=== PATIENT | female | born 1955 | race American Indian/Alaskan Native ===

== ENCOUNTER 2016-04-27 17:40 | Inpatient (IN) | payer SELFPAY ==
[2016-04-27 18:45] LABS: Mean Corpuscular HGB Conc 29 % (30-34); Red Blood Count 6.47 M/mm3 (3.65-5.03)
[2016-04-27 18:46] LABS: Hemoglobin 10.6 gm/dl (10.1-14.3); White Blood Count 20.6 K/mm3 (4.5-11.0)
[2016-04-27 18:47] LABS: Hematocrit 36.9 % (30.3-42.9); Mean Corpuscular Hemoglobin 16 pg (28-32); Mean Corpuscular Volume 57 fl (79-97); Platelet Count 288 K/mm3 (140-440); Red Cell Distribution Width 24.9 % (13.2-15.2)
[2016-04-27 18:57] LABS: Anion Gap 21 mmol/L; BUN/Creatinine Ratio 11.42; Blood Urea Nitrogen 8 mg/dL (7-17); Calcium 9.3 mg/dL (8.4-10.2); Carbon Dioxide 21 mmol/L (22-30); Chloride 96.9 mmol/L (98-107); Glucose 119 mg/dL (65-100); Potassium 4.3 mmol/L (3.6-5.0); Sodium 135 mmol/L (137-145)
[2016-04-27 19:19] LABS: Basophils % (Manual) 0 % (0.0-1.8); Blastocytes % (Manual) 0 %; Eosinophils % (Manual) 0 % (0.0-4.3)
[2016-04-27 19:22] LABS: Anisocytosis 1+; Elliptocytes Few; Hypochromasia 2+; Large Platelets 1+; Microcytosis 3+; Poikilocytosis 1+
[2016-04-27 19:23] LABS: Diff Status Complete; Platelet Estimate Consistent w Auto
--- NOTE | 2016-04-28 09:53 | XRay Report ---
CHEST 2 VIEWS: INDICATION: Shortness of breath. COMPARISON: None similar at this institution. FINDINGS: Frontal and lateral chest radiographs demonstrate slight exaggerated, though grossly normal cardiomediastinal silhouette, mild aortic knob calcifications, mildly elevated right hemidiaphragm and few horizontal bibasilar densities, possibly atelectasis or scarring. No pleural effusions or CHF. Multilevel thoracic spondylosis. CONCLUSION: Findings, as above. Direct comparison with prior chest imaging would also be helpful, if available. Thank you for the opportunity to participate in this patient's care.
--- NOTE | 2016-04-28 11:06 | Emergency Department Report ---
HPI - General Chief Complaint: Chest Pain Time Seen by Provider: 04/28/16 10:17 - HPI HPI: Chief complaint: Chest pain HPI: Patient is a 60-year-old female who normally gets her care at [facility] who presents today with pleuritic chest pain. Patient states it started around 9:00 Thursday evening and has gradually worsened. Patient states she has it when she coughs and when she takes a deep inspiration and it is sharp in nature. Patient has a cough with white sputum but no shortness of breath. Patient denies fever, nausea, vomiting or diarrhea. Patient has a history of chronic atrial fibrillation and up until January was on Zarrella to. Patient states he took her off Xarelto because of anemia and she was to have a colonoscopy but she never followed up or made an appointment and therefore has been off anticoagulants were several months now. Patient has been taking her digoxin and her diltiazem. Patient is currently pain-free. Patient denies history of fever. Patient denies history of heart attack, congestive heart failure but has had a history of pneumonia. Mode of arrival: private car Source: Patient Began: See above Duration: See above Context: See above Quality: See above Severity: 8 initially current 0 out of 10 Improved with: Nothing Worsened with: See above Associated signs and symptoms: See above ED Past Medical Hx - Past Medical History Hx Hypertension: Yes Additional medical history: ATRIAL FIB. PNEUMONIA - Surgical History Additional Surgical History: TUBAL LIGATION - Social History Smoking Status: Never Smoker Substance Use Type: None ED Review of Systems ROS: Stated complaint: CHEST PAINS/AFIB/HEART PAINS Other details as noted in HPI ROS Constitutional: No fever ENT: No uri symptoms Cardiovascular: chest pain Respiratory: No sob GI: No nausea vomiting or diarrhea : No dysuria frequency or urgency, Skin: No rash Neuro: No focal weakness or numbness Psych: No depression Ric/lymph: No edema Physical Exam - Physical Exam Vital Signs: Vital Signs 04/27/16 04/28/16 04/28/16 18:01 09:54 09:56 Temperature 99.3 F Pulse Rate 67 114 H Respiratory 22 27 H Rate Blood Pressure 135/64 130/75 O2 Sat by Pulse 97 100 100 Oximetry 04/28/16 04/28/16 04/28/16 09:58 10:00 10:02 Temperature Pulse Rate 106 H 103 H 111 H Respiratory 25 H 26 H 26 H Rate Blood Pressure 130/75 125/74 125/74 O2 Sat by Pulse 98 100 98 Oximetry 04/28/16 04/28/16 04/28/16 10:04 10:06 10:08 Temperature Pulse Rate 114 H 107 H 111 H Respiratory 27 H 21 29 H Rate Blood Pressure 125/74 125/74 125/74 O2 Sat by Pulse 99 100 100 Oximetry 04/28/16 04/28/16 04/28/16 10:10 10:12 10:14 Temperature Pulse Rate 108 H 98 H 103 H Respiratory 21 27 H 28 H Rate Blood Pressure 125/74 125/74 125/74 O2 Sat by Pulse 100 93 Oximetry 04/28/16 10:16 Temperature Pulse Rate 122 H Respiratory 30 H Rate Blood Pressure 125/74 O2 Sat by Pulse 100 Oximetry Physical Exam: GENERAL: The patient is well-developed well-nourished . HEENT: Normocephalic. Atraumatic. Extraocular motions are intact. Patient has moist mucous membranes. NECK: Supple. No meningitic signs are noted. There is no adenopathy noted. CHEST/LUNGS: Clear to auscultation. There is no respiratory distress noted. HEART/CARDIOVASCULAR: Irregular. There is intermittent tachycardia. There is no gallop rub or murmur. ABDOMEN: Abdomen is soft, nontender. Patient has normal bowel sounds. There is no abdominal distention. SKIN: There is no rash. There is no edema. There is no diaphoresis. NEURO: The patient is awake, alert, and oriented. The patient is cooperative. The patient has no focal neurologic deficits. The patient has normal speech. MUSCULOSKELETAL: There is no tenderness or deformity. There is no limitation range of motion. There is no evidence of acute injury. ED Course Vital Signs 04/27/16 04/28/16 04/28/16 18:01 09:54 09:56 Temperature 99.3 F Pulse Rate 67 114 H Respiratory 22 27 H Rate Blood Pressure 135/64 130/75 O2 Sat by Pulse 97 100 100 Oximetry 04/28/16 04/28/16 04/28/16 09:58 10:00 10:02 Temperature Pulse Rate 106 H 103 H 111 H Respiratory 25 H 26 H 26 H Rate Blood Pressure 130/75 125/74 125/74 O2 Sat by Pulse 98 100 98 Oximetry 0204/28/16 04/28/16 10:04 10:06 10:08 Temperature Pulse Rate 114 H 107 H 111 H Respiratory 27 H 21 29 H Rate Blood Pressure 125/74 125/74 125/74 O2 Sat by Pulse 99 100 100 Oximetry 04/28/16 04/28/16 04/28/16 10:10 10:12 10:14 Temperature Pulse Rate 108 H 98 H 103 H Respiratory 21 27 H 28 H Rate Blood Pressure 125/74 125/74 125/74 O2 Sat by Pulse 100 93 Oximetry 04/28/16 10:16 Temperature Pulse Rate 122 H Respiratory 30 H Rate Blood Pressure 125/74 O2 Sat by Pulse 100 Oximetry - Reevaluation(s) Reevaluation #1: 04/28/16 Patient admitted to the hospitalists for atrial fib with RVR and resumption of anticoagulation. Patient also has a white blood cell count of 20,000 with a shift and will be ruled out for pneumonia. ED Medical Decision Making - Lab Data Result diagrams: 04/27/16 18:27 04/27/16 18:27 Laboratory Tests 04/27/16 04/28/16 18:27 09:57 Calcium 9.3 Troponin T < 0.010 < 0.010 - EKG Data -: EKG Interpreted by Me (atrial fibrillation with rapid ventricular response.) Rate: tachycardia (140) - EKG Data When compared to previous EKG there are: previous EKG unavailable Interpretation: other (A. fib with RVR, poor initial anterior forces and lateral nonspecific ST-T wave changes.) 04/28/16 11:07 Repeat EKG this morning showed atrial fib with a heart rate of 101 and improvement of her lateral T-wave changes. - Radiology Data Radiology results: report reviewed (chest x-ray shows atelectasis) Critical care attestation.: If time is entered above; I have spent that time in minutes in the direct care of this critically ill patient, excluding procedure time. ED Disposition Clinical Impression: Atrial fibrillation with RVR Leukocytosis Qualifiers: Leukocytosis type: unspecified Qualified Code(s): D72.829 - Elevated white blood cell count, unspecified Chest pain Qualifiers: Chest pain type: unspecified Qualified Code(s): R07.9 - Chest pain, unspecified Disposition: OP ADMITTED IP TO THIS HOSP Is pt being admited?: Yes Does the pt Need Aspirin: Yes Condition: Fair Instructions: Chest Pain (ED) Referrals: PRIMARY CARE,MD [Primary Care Provider] - 3-5 Days Time of Disposition: 10:36 (admit to the hospitalist)
[2016-04-28] MEDS ORDERED: ASPIRIN PO ONE (11:14)
--- NOTE | 2016-04-28 11:31 | Admit Criteria Form ---
Admission Criteria Documentation: ATRIAL FIBRILLATION Clinical Indications for Admission to Inpatient Care (Place 'X' for any and all applicable criteria): Admission indicated for ANY ONE of the following(1)(2)(3)(4)(5) : [ ]I. Myocardial ischemia [ ]II. Dyspnea or hypoxemia [ ]III. Hemodynamic instability [ ]IV. Heart failure (e.g., pulmonary edema) (7) [ ]V. New-onset (less than 48 hours) atrial fibrillation with high risk for causing complications secondary to comorbidities (eg, symptomatic heart failure ) [ ]. Altered mental status [ ]VII. Syncope [ ]VIII. Patient has implantable cardioverter defibrillator that has fired more than once within past 24hr or needs immediate adjustment of settings that cannot be done other than in inpatient setting. (8) [ ]IX. Suspected accessory pathway (e.g., Glmjm-Kwjmbyows-Gxhrw syndrome) on ECG [ ]X. Recent systemic thromboembolism (eg, stroke) [ ]XI. Medication toxicity (e.g., digitalis) causing arrhythmia(9) [X]XII. Underlying medical condition that necessitates inpatient care (e.g., thyrotoxicosis, pneumonia) (10) [ ]XIII. Continuous ECG monitoring is required for condition causing arrhythmia (e.g., severe hyperkalemia, hypokalemia, acid-base disturbance).(11)(12)(13) [ ]XIV. Initiation of antiarrhythmic drug therapy is needed in patient at high risk of adverse effects as indicated by ANY ONE of the following: [ ]a) Significant structural heart disease (e.g., reduced ejection fraction, congenital heart disease, valvular heart disease) [ ]b) Prolonged QT interval [ ]c) Underlying sinus node or atrioventricular conduction disturbances [ ]d) Need for treatment with antiarrhythmic drugs that have significant proarrhythmic potential (e.g., dofetilide, sotalol, procainamide) [ ]e) Patient whose sinus rhythm has never been observed on ECG [ ]XV. Intolerable symptoms despite optimal outpatient treatment [ ]XVI. Elective or urgent cardioversion that cannot be performed on outpatient basis or during observation care. [A] (Use also Atrial Fibrillation: Observation Care ) as appropriate.(14) [ ]XVII.Contraindications and/or Inappropriate clinical situations for Observational Care in patients with Atrial Fibrillation, when ANY ONE of the following is required: [ ]a) Patient with High risk of cardiac embolism (e.g, patients with previous cardiac embolism, LVEF < 40%, age >75 and patients with prosthetic valve) 18 [ ]b) Patient with Moderate risk including DM patient, CAD and patient aged 65-75 18 [ ]c) Patient with any change in cardiac biomarker especially troponin should be managed as high risk in an inpatient setting 19 [ ]d) Physician judgement irrespective of ECG and other diagnostic findings 20 [ ]XVIII.General contraindications and/or Inappropriate clinical situations for Observational Care in patients with Atrial Fibrillation, when ANY ONE of the following is required: [ ]a) Prediction of prolongation of LOS based on ANY ONE of the following may be considered as a contraindication for observational care 2, 3, 4, 5, 6, 7, 8, 9, 10, 11 [ ]i) Age > 65 yrs. [ ]ii) Patient arriving by ambulance [ ]iii) Patient with high acuity [ ]iv) Patient requiring vital sign monitoring [ ]v) Patient on IV medication [ ]b) Systolic blood pressures 180mmHg 3,12 [ ]c) Patient with altered mental status including delirium and other alteration of consciousness3 [ ]d) Patient whose discharge disposition will be to a group home home or rehabilitation home should not be managed in Emergency Department Observation Unit. CMS rule requires 3 days hospital stay before such placement.3,13 [ ]e) Patient with failure to thrive due to broad array of etiologies 3,16,17 [ ]f) Inability to ambulate 3,14 Extended stay beyond goal length of stay may be needed for (1)(25)(26): [ ]a) Unstable comorbidities [ ]b) Persistently uncontrolled atrial fibrillation or other arrhythmias [ ]c) Acute thromboembolic event (e.g., stroke, limb ischemia) [ ]d) Need for inpatient attainment of full anticoagulation The original [employer] content created by [employer] has been revised. The portions of the content which have been revised are identified through the use of italic text or in bold, and [facility] has neither reviewed nor approved the modified material. All other unmodified content is copyright [employer]. Please see references footnoted in the original [employer] edition 2016 Admission Criteria Met: Yes
[2016-04-28 11:43] LABS: INR 1.33 (0.87-1.13)
[2016-04-28 11:44] LABS: Partial Thromboplastin Time 29.6 Sec. (24.2-36.6)
[2016-04-28] MEDS ORDERED: ZOFRAN IV PRN (11:57)
[2016-04-28] MEDS ORDERED: MILK OF MAGNESIA PO PRN (11:57)
[2016-04-28] MEDS ORDERED: DULCOLAX PR PRN (11:57)
[2016-04-28] MEDS ORDERED: TYLENOL PO PRN (11:57)
[2016-04-28] MEDS ORDERED: PROVENTIL IH PRN (11:59)
[2016-04-28] MEDS: ROCEPHIN/NS 1 GM/50 ML 1 GM/50 ML BAG IV SCH (12:17)
[2016-04-28] MEDS: DUONEB 0.5 MG-3 MG/3 ML SOLN IH SCH ×2 (15:00→20:06)
--- NOTE | 2016-04-28 17:49 | History and Physical Report ---
History of Present Illness Date of examination: 04/28/16 Date of admission: 04/28/16 10:34 Chief complaint: Chest pain History of present illness: Patient is a 60-year-old female with past medical history of atrial fibrillation , results to the ER with complaints of chest pain and exertional dyspnea. This patient describes as pleuritic in nature. She rates the pain at 10 over 10 intensity yesterday reports that he progressively got worse. Now it is a 2/10 in intensity. Her sister reports that she has been progressively getting more short of breath in the last few months. She was recently treated in January for pneumonia at [facility]. She normally takes digoxin and diltiazem xarelto, the latter which she has been unfortunately has not been taking due to anemia. Patient has a cough with white sputum but no shortness of breath. Patient denies fever, nausea, vomiting or diarrhea. Patient has a history of anemia and was recently taken off Xarelto because of anemia and she was to have a colonoscopy but she never followed up or made an appointment and therefore has been off anticoagulants were several months now. . Patient denies history of fever. Patient denies history of heart attack, congestive heart failure but has had a history of pneumonia. ROS Constitutional: No fever, fatigue or weight loss. Skin: No rash. Eyes: No recent vision problems or eye pain. ENT: No congestion, ear pain, or sore throat. Endocrine: No thyroid problems. Cardiovascular: chest pain. Respiratory: Cough with chest pain but no shortness of breath, congestion, or wheezing. Gastrointestinal: No abdominal pain, nausea, vomiting, or diarrhea. Genitourinary: No dysuria. Musculoskeletal: No joint swelling. Neurologic: No seizures. Hematologic: No unusual bruising or bleeding. Psychiatric: No psychiatric problems, hallucinations or depression. All other systems reviewed and otherwise negative. Past History Past Medical History: atrial fib, hypertension Past Surgical History: No surgical history Social history: no significant social history Family history: CAD Medications and Allergies Allergies Allergy/AdvReac Type Severity Reaction Status Date / Time No Known Allergies Allergy Unverified 04/27/16 18:05 Active Meds: Active Medications Acetaminophen (Tylenol) 650 mg PO Q4H PRN PRN Reason: Pain MILD(1-3)/Fever >100.5/ARAYA Albuterol (Proventil) 2.5 mg IH Q4HRT PRN PRN Reason: Shortness Of Breath Albuterol/Ipratropium (Duoneb 0.5 Mg-3 Mg/3 Ml Soln) 1 ampul IH Q6HRT [facility] Last Admin: 04/28/16 15:00 Dose: 1 ampul Apixaban (Eliquis) 5 mg PO Q12HR BLUE Bisacodyl (Dulcolax) 10 mg MT QDAY PRN PRN Reason: Constipation unrelieved by [facility] Digoxin (Lanoxin) 0.25 mg PO DAILY@1700 BLUE Diltiazem HCl (Cardizem) 60 mg PO Q6HR BLUE Azithromycin 500 mg/ Sodium (Chloride) 250 mls @ 250 mls/hr IV Q24HR BLUE PRN Reason: Protocol Ceftriaxone Sodium (Rocephin/Ns 1 Gm/50 Ml) 1 gm in 50 mls @ 100 mls/hr IV Q24HR BLUE PRN Reason: Protocol Last Admin: 04/28/16 12:17 Dose: 100 mls/hr Magnesium Hydroxide (Milk Of Magnesia) 30 ml PO Q4H PRN PRN Reason: Constipation Ondansetron HCl (Zofran) 4 mg IV Q8H PRN PRN Reason: N/V unrelieved by Reglan Exam - Physical Exam Narrative exam: VITAL SIGNS: Reviewed. GENERAL: The patient appeared well nourished and normally developed. Vital signs as documented. HEAD: No signs of head trauma. EYES: Pupils are equal. Extraocular motions intact. EARS: Hearing grossly intact. MOUTH: Oropharynx is normal. NECK: No adenopathy, no JVD. CHEST: Chest with clear breath sounds bilaterally. No wheezes, rales, or rhonchi. CARDIAC: Irregularly irregular rhythm S1 and S2, without murmurs, gallops, or rubs. VASCULAR: No Edema. Peripheral pulses normal and equal in all extremities. ABDOMEN: Soft, without detectable tenderness. No sign of distention. No rebound or guarding, and no masses palpated. Bowel Sounds normal. MUSCULOSKELETAL: Good range of motion of all major joints. Extremities without clubbing, cyanosis or edema. NEUROLOGIC EXAM: Alert and oriented x 3. No focal sensory or strength deficits. Speech normal. Follows commands. PSYCHIATRIC: Mood normal. SKIN: No rash or lesions. - Constitutional Vitals: Temp Pulse Resp BP Pulse Ox 99.3 F 91 H 20 127/51 99 04/27/16 18:01 04/28/16 15:09 04/28/16 15:09 04/28/16 13:00 04/28/16 13:00 Results - Labs CBC & Chem 7: 04/27/16 18:27 04/27/16 18:27 Labs: Laboratory Last Values WBC 20.6 K/mm3 (4.5-11.0) H 04/27/16 18:27 RBC 6.47 M/mm3 (3.65-5.03) H 04/27/16 18:27 Hgb 10.6 gm/dl (10.1-14.3) 04/27/16 18: Hct 36.9 % (30.3-42.9) 04/27/16 18: MCV 57 fl (79-97) L 04/27/16 18:27 MCH 16 pg (28-32) L 04/27/16 18: MCHC 29 % (30-34) L 04/27/16 18: RDW 24.9 % (13.2-15.2) H 04/27/16 18:27 Plt Count 288 K/mm3 (140-440) 04/27/16 18:27 Add Manual Diff Complete 04/27/16 18: Total Counted 100 04/27/16 18:27 Seg Neuts % (Manual) 91.0 % (40.0-70.0) H 04/27/16 18:27 Band Neutrophils % 0 % 04/27/16 18:27 Lymphocytes % (Manual) 7.0 % (13.4-35.0) L 04/27/16 18:27 Reactive Lymphs % (Man) 0 % 04/27/16 18:27 Monocytes % (Manual) 2.0 % (0.0-7.3) 04/27/16 18:27 Eosinophils % (Manual) 0 % (0.0-4.3) 04/27/16 18: Basophils % (Manual) 0 % (0.0-1.8) 04/27/16 18:27 Metamyelocytes % 0 % 04/27/16 18:27 Myelocytes % 0 % 04/27/16 18:27 Promyelocytes % 0 % 04/27/16 18:27 Blast Cells % 0 % 04/27/16 18:27 Nucleated RBC % Not Reportable 04/27/16 18:27 Seg Neutrophils # Man 18.7 K/mm3 (1.8-7.7) H 04/27/16 18:27 Band Neutrophils # 0.0 K/mm3 04/27/16 18:27 Lymphocytes # (Manual) 1.4 K/mm3 (1.2-5.4) 04/27/16 18:27 Abs React Lymphs (Man) 0.0 K/mm3 04/27/16 18:27 Monocytes # (Manual) 0.4 K/mm3 (0.0-0.8) 04/27/16 18:27 Eosinophils # (Manual) 0.0 K/mm3 (0.0-0.4) 04/27/16 18:27 Basophils # (Manual) 0.0 K/mm3 (0.0-0.1) 04/27/16 18:27 Metamyelocytes # 0.0 K/mm3 04/27/16 18:27 Myelocytes # 0.0 K/mm3 04/27/16 18:27 Promyelocytes # 0.0 K/mm3 04/27/16 18:27 Blast Cells # 0.0 K/mm3 04/27/16 18:27 WBC Morphology Not Reportable 04/27/16 18:27 Hypersegmented Neuts Not Reportable 04/27/16 18:27 Hyposegmented Neuts Not Reportable 04/27/16 18:27 Hypogranular Neuts Not Reportable 04/27/16 18:27 Smudge Cells Not Reportable 04/27/16 18:27 Toxic Granulation Not Reportable 04/27/16 18:27 Toxic Vacuolation Not Reportable 04/27/16 18:27 Dohle Bodies Not Reportable 04/27/16 18:27 Pelger-Huet Anomaly Not Reportable 04/27/16 18:27 Ankit Rods Not Reportable 04/27/16 18:27 Platelet Estimate Consistent w auto 04/27/16 18:27 Clumped Platelets Not Reportable 04/27/16 18:27 Plt Clumps, EDTA Not Reportable 04/27/16 18:27 Large Platelets 1+ 04/27/16 18:27 Giant Platelets Not Reportable 04/27/16 18:27 Platelet Satelliting Not Reportable 04/27/16 18:27 Plt Morphology Comment Not Reportable 04/27/16 18:27 RBC Morphology Not Reportable 04/27/16 18:27 Dimorphic RBCs Not Reportable 04/27/16 18:27 Polychromasia Not Reportable 04/27/16 18:27 Hypochromasia 2+ 04/27/16 18:27 Poikilocytosis 1+ 04/27/16 18:27 Anisocytosis 1+ 04/27/16 18:27 Microcytosis 3+ 04/27/16 18:27 Macrocytosis Not Reportable 04/27/16 18:27 Spherocytes Not Reportable 04/27/16 18:27 Pappenheimer Bodies Not Reportable 04/27/16 18:27 Sickle Cells Not Reportable 04/27/16 18:27 Target Cells Not Reportable 04/27/16 18:27 Tear Drop Cells Not Reportable 04/27/16 18:27 Ovalocytes Not Reportable 04/27/16 18:27 Helmet Cells Not Reportable 04/27/16 18:27 [place]-Center Bodies Not Reportable 04/27/16 18:27 [place] Rings Not Reportable 04/27/16 18:27 [place] Cells Not Reportable 04/27/16 18:27 Bite Cells Not Reportable 04/27/16 18:27 Crenated Cell Not Reportable 04/27/16 18:27 Elliptocytes Few 04/27/16 18:27 Acanthocytes (Spur) Not Reportable 04/27/16 18:27 Rouleaux Not Reportable 04/27/16 18:27 Hemoglobin C Crystals Not Reportable 04/27/16 18:27 Schistocytes Not Reportable 04/27/16 18:27 Malaria parasites Not Reportable 04/27/16 18:27 [place] Bodies Not Reportable 04/27/16 18:27 Hem Pathologist Commnt No 04/27/16 18:27 PT 16.4 Sec. (12.2-14.9) H 04/28/16 11:19 INR 1.33 (0.87-1.13) H 04/28/16 11:19 APTT 29.6 Sec. (24.2-36.6) 04/28/16 11:19 Sodium 135 mmol/L (137-145) L 04/27/16 18:27 Potassium 4.3 mmol/L (3.6-5.0) 04/27/16 18: Chloride 96.9 mmol/L (98-107) L 04/27/16 18:27 Carbon Dioxide 21 mmol/L (22-30) L 04/27/16 18:27 Anion Gap 21 mmol/L 04/27/16 18:27 BUN 8 mg/dL (7-17) 04/27/16 18: Creatinine 0.7 mg/dL (0.7-1.2) 04/27/16 18: Estimated GFR > 60 ml/min 04/27/16 18: BUN/Creatinine Ratio 11.42 % 04/27/16 18: Glucose 119 mg/dL (65-100) H 04/27/16 18: Calcium 9.3 mg/dL (8.4-10.2) 04/27/16 18: Troponin T < 0.010 ng/mL (0.00-0.029) 04/28/16 09:57 Digoxin 1.4 ng/mL (0.9-2.0) 04/28/16 11:19 - Imaging and Cardiology EKG: image reviewed (afib with rvr) Chest x-ray: image reviewed (mild atalectasis) Assessment and Plan Assessment and plan: Patient is a 60-year-old female with past medical history of atrial fibrillation , results to the ER with complaints of chest pain and exertional dyspnea. This patient describes as pleuritic in nature. She rates the pain at 10 over 10 intensity yesterday reports that he progressively got worse. Now it is a 2/10 in intensity. Her sister reports that she has been progressively getting more short of breath in the last few months. She was recently treated in January for pneumonia at [facility]. She normally takes digoxin and diltiazem xarelto, the latter which she has been unfortunately has not been taking due to anemia. Patient has a cough with white sputum but no shortness of breath. Patient denies fever, nausea, vomiting or diarrhea. Patient has a history of anemia and was recently taken off Xarelto because of anemia and she was to have a colonoscopy but she never followed up or made an appointment and therefore has been off anticoagulants were several months now. . Patient denies history of fever. Patient denies history of heart attack, congestive heart failure * Acute respiratory failure rule out pneumonia * Atelectasis * Pneumonia * Atrial fibrillation with RVR * Anemia Plan * Admitted to telemetry * Start on empiric antibiotics * Cardiology consultation * We'll resume Xarelto * Obtain a CTA to rule out PE considering pleuritic chest pain * DVT and GI prophylaxis * Resume home medications * Digoxin level checked as 1.4 Advance Directives: Yes Plan of care discussed with patient/family: Yes
[2016-04-28] MEDS ORDERED: XARELTO PO SCH (18:00)
[2016-04-28] MEDS: CARDIZEM PO SCH (19:00)
[2016-04-28] MEDS ORDERED: ELIQUIS PO SCH (22:00)
[2016-04-29] MEDS ORDERED: NACL ONE ×2 (01:20→10:09)
[2016-04-29] MEDS: CARDIZEM PO SCH ×5 (01:24→23:13)
[2016-04-29 06:02] LABS: Basophils % (Auto) 0.6 % (0.0-1.8); Eosinophils % (Auto) 1.4 % (0.0-4.3); Mean Corpuscular HGB Conc 29 % (30-34); Red Blood Count 5.65 M/mm3 (3.65-5.03); White Blood Count 18.2 K/mm3 (4.5-11.0)
[2016-04-29 06:03] LABS: Hematocrit 32.2 % (30.3-42.9); Hemoglobin 9.4 gm/dl (10.1-14.3); Mean Corpuscular Hemoglobin 17 pg (28-32); Mean Corpuscular Volume 57 fl (79-97); Platelet Count 271 K/mm3 (140-440); Red Cell Distribution Width 24.5 % (13.2-15.2)
[2016-04-29 06:18] LABS: Anion Gap 19 mmol/L; BUN/Creatinine Ratio 17.14; Blood Urea Nitrogen 12 mg/dL (7-17); Calcium 8.8 mg/dL (8.4-10.2); Carbon Dioxide 22 mmol/L (22-30); Chloride 100.1 mmol/L (98-107); Glucose 116 mg/dL (65-100); Potassium 4.3 mmol/L (3.6-5.0); Sodium 137 mmol/L (137-145)
[2016-04-29] MEDS: ROCEPHIN/NS 1 GM/50 ML 1 GM/50 ML BAG IV SCH (09:54)
[2016-04-29] MEDS ORDERED: ZITHROMAX 500 MG in NACL 0.9% 250ML 250 ML IV SCH (10:00)
--- NOTE | 2016-04-29 10:17 | Consultation ---
History of Present Illness Consult date: 04/29/16 Requesting physician: ALEJANDRO MARADIAGA Consult reason: atrial fibrillation, chest pain History of present illness: The patient is a 60 year old female with a history of hypertension, atrial fibrillation who presented with complaints of substernal chest discomfort ongoing since Thursday. She also reports mild shortness of breath and cough productive of white sputum and states the pain is worse with coughing and deep inspiration. No palpitations, nausea, vomiting or diaphoresis. EKG in the ER showed atrial fibrillation with HR 140. Troponin negative x 2. WBC 18.2. Hemoglobin 9.4. She states that she had been taking Xarelto but was taken off of it several months ago due to anemia. She was supposed to have a colonoscopy but did not follow up. She denies any active bleeding. She normally receives care at [facility]. Past History Past Medical History: atrial fib, hypertension Past Surgical History: Other (tubal ligation ) Social history: denies: smoking, alcohol abuse, prescription drug abuse, IV drug use, full code Family history: CAD Medications and Allergies Allergies Allergy/AdvReac Type Severity Reaction Status Date / Time No Known Allergies Allergy Unverified 04/27/16 18:05 Active Meds: Active Medications Acetaminophen (Tylenol) 650 mg PO Q4H PRN PRN Reason: Pain MILD(1-3)/Fever >100.5/ARAYA Albuterol (Proventil) 2.5 mg IH Q4HRT PRN PRN Reason: Shortness Of Breath Bisacodyl (Dulcolax) 10 mg WI QDAY PRN PRN Reason: Constipation unrelieved by MOM Digoxin (Lanoxin) 0.25 mg PO DAILY@1700 BLUE Diltiazem HCl (Cardizem) 60 mg PO Q6HR [facility] Last Admin: 04/29/16 05:43 Dose: 60 mg Ceftriaxone Sodium (Rocephin/Ns 1 Gm/50 Ml) 1 gm in 50 mls @ 100 mls/hr IV Q24HR BLUE PRN Reason: Protocol Last Admin: 04/29/16 09:54 Dose: 100 mls/hr Magnesium Hydroxide (Milk Of Magnesia) 30 ml PO Q4H PRN PRN Reason: Constipation Last Admin: 04/29/16 00:00 Dose: 30 ml Ondansetron HCl (Zofran) 4 mg IV Q8H PRN PRN Reason: N/V unrelieved by Reglan Rivaroxaban (Xarelto) 20 mg PO QDAY BLUE PRN Reason: Protocol Review of Systems Constitutional: no fever, no chills Ears, nose, mouth and throat: no nasal congestion, no nasal discharge, no sinus pressure Cardiovascular: chest pain, shortness of breath, no palpitations, no leg edema Respiratory: cough with sputum, shortness of breath, no congestion, no wheezing Gastrointestinal: no abdominal pain, no nausea, no vomiting, no diarrhea, no constipation Genitourinary Female: no dysuria, no urgency Musculoskeletal: no neck stiffness, no neck pain, no myalgias Integumentary: no rash, no pruritis Neurological: no parathesias, no numbness, no tingling, no headaches Endocrine: no cold intolerance, no heat intolerance Hematologic/Lymphatic: no easy bruising, no easy bleeding Allergic/Immunologic: no urticaria, no wheezing Physical Examination Vital Signs Temp Pulse Resp BP Pulse Ox 99.3 F 67 22 135/64 97 04/27/16 18:01 04/27/16 18:01 04/27/16 18:01 04/27/16 18:01 04/27/16 18:01 General appearance: no acute distress HEENT: Positive: Normocephaly, Mucus Membranes Moist Neck: Positive: neck supple, trachea midline Cardiac: Positive: irregularly irregular, S1/S2 Lungs: Positive: clear to auscultation Neuro: Positive: Grossly Intact Abdomen: Positive: Soft, Active Bowel Sounds. Negative: Tender Skin: Positive: Clear. Negative: Rash Extremities: Present: normal. Absent: edema Results 04/29/16 05:24 04/29/16 05:24 Coagulation 04/28/16 Range/Units 11:19 PT 16.4 H (12.2-14.9) Sec. INR 1.33 H (0.87-1.13) APTT 29.6 (24.2-36.6) Sec. CBC 04/29/16 Range/Units 05:24 WBC 18.2 H (4.5-11.0) K/mm3 RBC 5.65 H (3.65-5.03) M/mm3 Hgb 9.4 L (10.1-14.3) gm/dl Hct 32.2 (30.3-42.9) % Plt Count 271 (140-440) K/mm3 Lymph # 1.5 (1.2-5.4) K/mm3 [place] # 1.7 H (0.0-0.8) K/mm3 Eos # 0.3 (0.0-0.4) K/mm3 Baso # 0.1 (0.0-0.1) K/mm3 Comprehensive Metabolic Panel 04/29/16 Range/Units 05:24 Sodium 137 (137-145) mmol/L Potassium 4.3 (3.6-5.0) mmol/L Chloride 100.1 (98-107) mmol/L Carbon Dioxide 22 (22-30) mmol/L BUN 12 (7-17) mg/dL Creatinine 0.7 (0.7-1.2) mg/dL Glucose 116 H (65-100) mg/dL Calcium 8.8 (8.4-10.2) mg/dL - Imaging and Cardiology Echo: pending EKG: image reviewed EKG interpretations - Telemetry EKG Rhythm: Atrial Fibrillation - EKG Supraventricular dysrhythmia: atrial fibrillation Assessment and Plan Atypical chest pain-->likely costochondritis troponin negative x 3 await chest CTA findings Atrial fibrillation with RVR check mag level, TSH await echo findings continue cardizem 60mg Q6H, Xarelto add metoprolol 25mg BID d/c digoxin Hypertension BP stable Leukocytosis Anemia Will d/c digoxin and add metoprolol for better rate control. Await echo findings. The patient has been seen in conjunction with Dr. Foote who agrees with the assessment and plan of care. Thank you Dr. Maradiaga for allowing us to participate in the care of this patient.
[2016-04-29] MEDS: XARELTO PO SCH (11:51)
[2016-04-29] MEDS: LOPRESSOR PO SCH ×2 (13:00→22:08)
--- NOTE | 2016-04-29 14:23 | Cat Scan Report ---
CTA CHEST INDICATION: Pleuritic chest pain. COMPARISON: CXR from 2 days ago. FINDINGS: Chest CTA performed following intravenous administration of 100 cc of Omnipaque 350. Rotational MIP's also obtained. Mild cardiomegaly. Borderline pulmonary arterial hypertension. Otherwise unremarkable great vessels. Slight aortic atherosclerotic calcifications. No effusions or size significant adenopathy. Patent central airway. Approximately 5 mm right thyroid hypodensity posteriorly. Bibasilar atelectasis posteriorly, right more than left as also mild right middle lobe and lingular scarring or atelectasis. Right hemidiaphragm mildly elevated. Slight nonspecific distal esophageal prominence or thickening. No significant abnormality in the imaged upper abdomen. Mild multilevel thoracic spine degenerative changes/spurring. CONCLUSION: Right more than left basilar atelectasis, mildly elevated right hemidiaphragm, cardiomegaly and few other incidental findings, as above. Please correlate. Thank you for the opportunity to participate in this patient's care.
--- NOTE | 2016-04-29 15:35 | Progress Note ---
Assessment and Plan Assessment and plan: Patient is a 60-year-old female with past medical history of atrial fibrillation , results to the ER with complaints of chest pain and exertional dyspnea. This patient describes as pleuritic in nature. She rates the pain at 10 over 10 intensity yesterday reports that he progressively got worse. Now it is a 2/10 in intensity. Her sister reports that she has been progressively getting more short of breath in the last few months. She was recently treated in January for pneumonia at [facility]. She normally takes digoxin and diltiazem xarelto, the latter which she has been unfortunately has not been taking due to anemia. Patient has a cough with white sputum but no shortness of breath. Patient denies fever, nausea, vomiting or diarrhea. Patient has a history of anemia and was recently taken off Xarelto because of anemia and she was to have a colonoscopy but she never followed up or made an appointment and therefore has been off anticoagulants were several months now. . Patient denies history of fever. Patient denies history of heart attack, congestive heart failure * Acute respiratory failure rule out pneumonia * Atelectasis * Leukocytosis-question reactive CTA did not show any convincing evidence of pneumonia * Atrial fibrillation with RVR * Anemia Plan * Adjust diltazem, discussed with cardiology they may hold digoxin * Patient refusing warfarin and xarelto, she understands the risk including but not limited to DVT, PE, AND STROKE * CTA reviewed no evidence of pulmonary embolism * Continue antibiotics * We'll check free T4 as TSH is elevated * Continue intermittent and nebulizer treatment * DVT and GI prophylaxis * Resume home medications * Digoxin level checked as 1.4 * Plan of care discussed again with the patient and also with inspector packer. History Interval history: Patient seen and examined this morning in no acute distress, Still with rapid heart rate. Denies any chest pain, nausea, vomiting, diarrhea No fever noted blood pressure controlled No adverse events reported to me by nursing staff Hospitalist Physical - Physical exam Narrative exam: VITAL SIGNS: Reviewed. GENERAL: The patient appeared well nourished and normally developed. Vital signs as documented. HEAD: No signs of head trauma. EYES: Pupils are equal. Extraocular motions intact. EARS: Hearing grossly intact. MOUTH: Oropharynx is normal. NECK: No adenopathy, no JVD. CHEST: Chest with clear breath sounds bilaterally. No wheezes, rales, or rhonchi. CARDIAC: Irregularly irregular rhythm S1 and S2, without murmurs, gallops, or rubs. VASCULAR: No Edema. Peripheral pulses normal and equal in all extremities. ABDOMEN: Soft, without detectable tenderness. No sign of distention. No rebound or guarding, and no masses palpated. Bowel Sounds normal. MUSCULOSKELETAL: Good range of motion of all major joints. Extremities without clubbing, cyanosis or edema. NEUROLOGIC EXAM: Alert and oriented x 3. No focal sensory or strength deficits. Speech normal. Follows commands. PSYCHIATRIC: Mood normal. SKIN: No rash or lesions. - Constitutional Vitals: Temp Pulse Resp BP Pulse Ox 98.3 F 119 H 20 136/76 97 04/29/16 00:10 04/29/16 13:00 04/29/16 00:10 04/29/16 13:00 04/29/16 00:10 General appearance: Present: no acute distress Results - Labs CBC & Chem 7: 04/29/16 05:24 04/29/16 05:24 Labs: Laboratory Last Values WBC 18.2 K/mm3 (4.5-11.0) H 04/29/16 05:24 RBC 5.65 M/mm3 (3.65-5.03) H 04/29/16 05:24 Hgb 9.4 gm/dl (10.1-14.3) L 04/29/16 05:24 Hct 32.2 % (30.3-42.9) 04/29/16 05:24 MCV 57 fl (79-97) L 04/29/16 05:24 MCH 17 pg (28-32) L 04/29/16 05:24 MCHC 29 % (30-34) L 04/29/16 05:24 RDW 24.5 % (13.2-15.2) H 04/29/16 05:24 Plt Count 271 K/mm3 (140-440) 04/29/16 05:24 Lymph % (Auto) 8.1 % (13.4-35.0) L 04/29/16 05:24 [place] % (Auto) 9.5 % (0.0-7.3) H 04/29/16 05:24 Eos % (Auto) 1.4 % (0.0-4.3) 04/29/16 05:24 Baso % (Auto) 0.6 % (0.0-1.8) 04/29/16 05:24 Lymph # 1.5 K/mm3 (1.2-5.4) 04/29/16 05:24 [place] # 1.7 K/mm3 (0.0-0.8) H 04/29/16 05:24 Eos # 0.3 K/mm3 (0.0-0.4) 04/29/16 05:24 Baso # 0.1 K/mm3 (0.0-0.1) 04/29/16 05:24 Add Manual Diff Complete 04/27/16 18:27 Total Counted 100 04/27/16 18:27 Seg Neutrophils % 80.4 % (40.0-70.0) H 04/29/16 05:24 Seg Neuts % (Manual) 91.0 % (40.0-70.0) H 04/27/16 18:27 Band Neutrophils % 0 % 04/27/16 18:27 Lymphocytes % (Manual) 7.0 % (13.4-35.0) L 04/27/16 18:27 Reactive Lymphs % (Man) 0 % 04/27/16 18:27 Monocytes % (Manual) 2.0 % (0.0-7.3) 04/27/16 18:27 Eosinophils % (Manual) 0 % (0.0-4.3) 04/27/16 18:27 Basophils % (Manual) 0 % (0.0-1.8) 04/27/16 18:27 Metamyelocytes % 0 % 04/27/16 18:27 Myelocytes % 0 % 04/27/16 18:27 Promyelocytes % 0 % 04/27/16 18:27 Blast Cells % 0 % 04/27/16 18:27 Nucleated RBC % Not Reportable 04/27/16 18:27 Seg Neutrophils # 14.6 K/mm3 (1.8-7.7) H 04/29/16 05:24 Seg Neutrophils # Man 18.7 K/mm3 (1.8-7.7) H 04/27/16 18:27 Band Neutrophils # 0.0 K/mm3 04/27/16 18:27 Lymphocytes # (Manual) 1.4 K/mm3 (1.2-5.4) 04/27/16 18:27 Abs React Lymphs (Man) 0.0 K/mm3 04/27/16 18:27 Monocytes # (Manual) 0.4 K/mm3 (0.0-0.8) 04/27/16 18:27 Eosinophils # (Manual) 0.0 K/mm3 (0.0-0.4) 04/27/16 18:27 Basophils # (Manual) 0.0 K/mm3 (0.0-0.1) 04/27/16 18:27 Metamyelocytes # 0.0 K/mm3 04/27/16 18:27 Myelocytes # 0.0 K/mm3 04/27/16 18:27 Promyelocytes # 0.0 K/mm3 04/27/16 18:27 Blast Cells # 0.0 K/mm3 04/27/16 18:27 WBC Morphology Not Reportable 04/27/16 18:27 Hypersegmented Neuts Not Reportable 04/27/16 18:27 Hyposegmented Neuts Not Reportable 04/27/16 18:27 Hypogranular Neuts Not Reportable 04/27/16 18:27 Smudge Cells Not Reportable 04/27/16 18:27 Toxic Granulation Not Reportable 04/27/16 18:27 Toxic Vacuolation Not Reportable 04/27/16 18:27 Dohle Bodies Not Reportable 04/27/16 18:27 Pelger-Huet Anomaly Not Reportable 04/27/16 18:27 Ankit Rods Not Reportable 04/27/16 18:27 Platelet Estimate Consistent w auto 04/27/16 18:27 Clumped Platelets Not Reportable 04/27/16 18:27 Plt Clumps, EDTA Not Reportable 04/27/16 18:27 Large Platelets 1+ 04/27/16 18:27 Giant Platelets Not Reportable 04/27/16 18:27 Platelet Satelliting Not Reportable 04/27/16 18:27 Plt Morphology Comment Not Reportable 04/27/16 18:27 RBC Morphology Not Reportable 04/27/16 18:27 Dimorphic RBCs Not Reportable 04/27/16 18:27 Polychromasia Not Reportable 04/27/16 18:27 Hypochromasia 2+ 04/27/16 18:27 Poikilocytosis 1+ 04/27/16 18:27 Anisocytosis 1+ 04/27/16 18:27 Microcytosis 3+ 04/27/16 18:27 Macrocytosis Not Reportable 04/27/16 18:27 Spherocytes Not Reportable 04/27/16 18:27 Pappenheimer Bodies Not Reportable 04/27/16 18:27 Sickle Cells Not Reportable 04/27/16 18:27 Target Cells Not Reportable 04/27/16 18:27 Tear Drop Cells Not Reportable 04/27/16 18:27 Ovalocytes Not Reportable 04/27/16 18:27 Helmet Cells Not Reportable 04/27/16 18:27 [place] Bodies Not Reportable 04/27/16 18:27 [place] Rings Not Reportable 04/27/16 18:27 [place] Cells Not Reportable 04/27/16 18:27 Bite Cells Not Reportable 04/27/16 18:27 Crenated Cell Not Reportable 04/27/16 18:27 Elliptocytes Few 04/27/16 18:27 Acanthocytes (Spur) Not Reportable 04/27/16 18:27 Rouleaux Not Reportable 04/27/16 18:27 Hemoglobin C Crystals Not Reportable 04/27/16 18:27 Schistocytes Not Reportable 04/27/16 18:27 Malaria parasites Not Reportable 04/27/16 18:27 [place] Bodies Not Reportable 04/27/16 18:27 Hem Pathologist Commnt No 04/27/16 18:27 PT 16.4 Sec. (12.2-14.9) H 04/28/16 11:19 INR 1.33 (0.87-1.13) H 04/28/16 11:19 APTT 29.6 Sec. (24.2-36.6) 04/28/16 11:19 Sodium 137 mmol/L (137-145) 04/29/16 05:24 Potassium 4.3 mmol/L (3.6-5.0) 04/29/16 05:24 Chloride 100.1 mmol/L (98-107) 04/29/16 05:24 Carbon Dioxide 22 mmol/L (22-30) 04/29/16 05:24 Anion Gap 19 mmol/L 04/29/16 05:24 BUN 12 mg/dL (7-17) 04/29/16 05:24 Creatinine 0.7 mg/dL (0.7-1.2) 04/29/16 05:24 Estimated GFR > 60 ml/min 04/29/16 05:24 BUN/Creatinine Ratio 17.14 % 04/29/16 05:24 Glucose 116 mg/dL (65-100) H 04/29/16 05:24 Calcium 8.8 mg/dL (8.4-10.2) 04/29/16 05:24 Magnesium 2.3 mg/dL (1.7-2.3) 04/29/16 10:56 Troponin T < 0.010 ng/mL (0.00-0.029) 04/28/16 09:57 TSH 5.640 mlU/mL (0.270-4.200) H 04/29/16 10:56 Digoxin 1.4 ng/mL (0.9-2.0) 04/28/16 11:19
[2016-04-29] MEDS ORDERED: LANOXIN PO SCH (17:00)
[2016-04-30 06:11] LABS: Mean Corpuscular HGB Conc 30 % (30-34); Red Blood Count 5.41 M/mm3 (3.65-5.03); White Blood Count 15.2 K/mm3 (4.5-11.0)
[2016-04-30 06:12] LABS: Anion Gap 19 mmol/L; BUN/Creatinine Ratio 14.28; Blood Urea Nitrogen 10 mg/dL (7-17); Calcium 8.8 mg/dL (8.4-10.2); Carbon Dioxide 23 mmol/L (22-30); Chloride 100.5 mmol/L (98-107); Glucose 96 mg/dL (65-100); Potassium 4.4 mmol/L (3.6-5.0); Sodium 138 mmol/L (137-145)
[2016-04-30] MEDS: CARDIZEM PO SCH (06:12)
[2016-04-30 06:16] LABS: Hemoglobin 9.1 gm/dl (10.1-14.3)
[2016-04-30 06:17] LABS: Hematocrit 30.9 % (30.3-42.9); Mean Corpuscular Hemoglobin 17 pg (28-32); Mean Corpuscular Volume 57 fl (79-97); Platelet Count 258 K/mm3 (140-440); Red Cell Distribution Width 24.4 % (13.2-15.2)
[2016-04-30] MEDS: ROCEPHIN/NS 1 GM/50 ML 1 GM/50 ML BAG IV SCH (09:27)
[2016-04-30] MEDS: LOPRESSOR PO SCH ×2 (09:37→22:33)
--- NOTE | 2016-04-30 10:59 | Progress Note ---
Assessment and Plan Atypical chest pain-->likely costochondritis resolved troponin negative x 3 Atrial fibrillation-->currently controlled ventricular rate Echo 04/2016: mild LVH, EF 45-50%, impaired relaxation digoxin discontinued continue cardizem 60mg Q6H, metoprolol 25mg BID recommend alf anti-coagulation as CHADS-VASC =2, discussed risks and benefits in detail with pt.-->currently refusing Hypertension BP stable Leukocytosis Anemia Continue current management. Recommend alf anti-coagulation and risks and benefits were discussed in detail with patient but she is currently refusing. The patient has been seen in conjunction with Dr. Foote who agrees with the assessment and plan of care. Subjective Date of service: 04/30/16 Principal diagnosis: atypical chest pain, afib with RVR Interval history: The patient is resting in bed. She continues to c/o productive cough. No further chest pain. Atrial fibrillation with controlled ventricular rate on the monitor. Objective Last Vital Signs Temp 98.1 F 04/30/16 08:00 Pulse 84 04/30/16 08:00 Resp 18 04/30/16 08:00 BP 128/78 04/30/16 09:37 Pulse Ox 95 04/30/16 08:00 - Physical Examination General: No Apparent Distress HEENT: Positive: Normocephaly, Mucus Membranes Moist Neck: Positive: neck supple, trachea midline Cardiac: Positive: irregularly irregular, S1/S2 Lungs: Positive: clear to auscultation Neuro: Positive: Grossly Intact Abdomen: Positive: Soft, Active Bowel Sounds. Negative: Tender Skin: Positive: Clear. Negative: Rash Extremities: Present: normal. Absent: edema - Labs and Meds CBC 04/30/16 Range/Units 04:00 WBC 15.2 H (4.5-11.0) K/mm3 RBC 5.41 H (3.65-5.03) M/mm3 Hgb 9.1 L (10.1-14.3) gm/dl Hct 30.9 (30.3-42.9) % Plt Count 258 (140-440) K/mm3 Comprehensive Metabolic Panel 04/30/16 Range/Units 04:00 Sodium 138 (137-145) mmol/L Potassium 4.4 (3.6-5.0) mmol/L Chloride 100.5 (98-107) mmol/L Carbon Dioxide 23 (22-30) mmol/L BUN 10 (7-17) mg/dL Creatinine 0.7 (0.7-1.2) mg/dL Glucose 96 (65-100) mg/dL Calcium 8.8 (8.4-10.2) mg/dL - Imaging and Cardiology EKG: image reviewed Echo: report reviewed (04/2016: mild LVH, EF 45-50%, impaired relaxation ) - Telemetry EKG Rhythm: Atrial Fibrillation
[2016-04-30] MEDS ORDERED: CARDIZEM CD PO SCH (14:00)
--- NOTE | 2016-04-30 14:16 | Progress Note ---
Assessment and Plan Assessment and plan: 1. Atypical chest pain. Etiology most likely secondary to costochondritis. Resolved. Troponin negative 3. 2. Atrial fibrillation. Patient's rate is currently controlled. Echocardiogram revealed mild LVH and an EF of 45-50% with impaired relaxation. Digoxin has been discontinued. Continue cardizem 60mg Q6H, metoprolol 25mg BID.cardiology recommend retirement anti-coagulation as CHADS-VASC =2, discussed risks and benefits in detail with pt. However, patient is currently refusing. 3. Hypertension. Continue antihypertensives medications. 4. Leukocytosis. Improved. 5. Anemia. Continue to monitor H&H. History Interval history: No new issues overnight. Hospitalist Physical - Constitutional Vitals: Temp Pulse Resp BP Pulse Ox 98.1 F 84 18 128/78 95 04/30/16 08:00 04/30/16 08:00 04/30/16 08:00 04/30/16 09:37 04/30/16 08:00 General appearance: Present: no acute distress - EENT Eyes: Present: PERRL, EOM intact ENT: hearing intact, clear oral mucosa, dentition normal - Neck Neck: Present: supple, normal ROM - Respiratory Respiratory effort: normal Respiratory: bilateral: CTA - Cardiovascular Rhythm: regular Heart Sounds: Present: S1 & S2. Absent: gallop, rub - Extremities Extremities: no ischemia, No edema, Full ROM - Abdominal General gastrointestinal: soft, non-tender, non-distended, normal bowel sounds - Integumentary Integumentary: Present: clear, warm, dry - Neurologic Neurologic: CNII-XII intact, moves all extremities Results - Labs CBC & Chem 7: 04/30/16 04:00 04/30/16 04:00 Labs: Laboratory Last Values WBC 15.2 K/mm3 (4.5-11.0) H 04/30/16 04:00 RBC 5.41 M/mm3 (3.65-5.03) H 04/30/16 04:00 Hgb 9.1 gm/dl (10.1-14.3) L 04/30/16 04:00 Hct 30.9 % (30.3-42.9) 04/30/16 04:00 MCV 57 fl (79-97) L 04/30/16 04:00 MCH 17 pg (28-32) L 04/30/16 04:00 MCHC 30 % (30-34) 04/30/16 04:00 RDW 24.4 % (13.2-15.2) H 04/30/16 04:00 Plt Count 258 K/mm3 (140-440) 04/30/16 04:00 Lymph % (Auto) 8.1 % (13.4-35.0) L 04/29/16 05:24 [place] % (Auto) 9.5 % (0.0-7.3) H 04/29/16 05:24 Eos % (Auto) 1.4 % (0.0-4.3) 04/29/16 05:24 Baso % (Auto) 0.6 % (0.0-1.8) 04/29/16 05:24 Lymph # 1.5 K/mm3 (1.2-5.4) 04/29/16 05:24 [place] # 1.7 K/mm3 (0.0-0.8) H 04/29/16 05:24 Eos # 0.3 K/mm3 (0.0-0.4) 04/29/16 05:24 Baso # 0.1 K/mm3 (0.0-0.1) 04/29/16 05:24 Add Manual Diff Complete 04/27/16 18:27 Total Counted 100 04/27/16 18:27 Seg Neutrophils % 80.4 % (40.0-70.0) H 04/29/16 05:24 Seg Neuts % (Manual) 91.0 % (40.0-70.0) H 04/27/16 18:27 Band Neutrophils % 0 % 04/27/16 18:27 Lymphocytes % (Manual) 7.0 % (13.4-35.0) L 04/27/16 18:27 Reactive Lymphs % (Man) 0 % 04/27/16 18:27 Monocytes % (Manual) 2.0 % (0.0-7.3) 04/27/16 18:27 Eosinophils % (Manual) 0 % (0.0-4.3) 04/27/16 18:27 Basophils % (Manual) 0 % (0.0-1.8) 04/27/16 18:27 Metamyelocytes % 0 % 04/27/16 18:27 Myelocytes % 0 % 04/27/16 18:27 Promyelocytes % 0 % 04/27/16 18:27 Blast Cells % 0 % 04/27/16 18:27 Nucleated RBC % Not Reportable 04/27/16 18:27 Seg Neutrophils # 14.6 K/mm3 (1.8-7.7) H 04/29/16 05:24 Seg Neutrophils # Man 18.7 K/mm3 (1.8-7.7) H 04/27/16 18:27 Band Neutrophils # 0.0 K/mm3 04/27/16 18:27 Lymphocytes # (Manual) 1.4 K/mm3 (1.2-5.4) 04/27/16 18:27 Abs React Lymphs (Man) 0.0 K/mm3 04/27/16 18:27 Monocytes # (Manual) 0.4 K/mm3 (0.0-0.8) 04/27/16 18:27 Eosinophils # (Manual) 0.0 K/mm3 (0.0-0.4) 04/27/16 18:27 Basophils # (Manual) 0.0 K/mm3 (0.0-0.1) 04/27/16 18:27 Metamyelocytes # 0.0 K/mm3 04/27/16 18:27 Myelocytes # 0.0 K/mm3 04/27/16 18:27 Promyelocytes # 0.0 K/mm3 04/27/16 18:27 Blast Cells # 0.0 K/mm3 04/27/16 18:27 WBC Morphology Not Reportable 04/27/16 18:27 Hypersegmented Neuts Not Reportable 04/27/16 18:27 Hyposegmented Neuts Not Reportable 04/27/16 18:27 Hypogranular Neuts Not Reportable 04/27/16 18:27 Smudge Cells Not Reportable 04/27/16 18:27 Toxic Granulation Not Reportable 04/27/16 18:27 Toxic Vacuolation Not Reportable 04/27/16 18:27 Dohle Bodies Not Reportable 04/27/16 18:27 Pelger-[place]uet Anomaly Not Reportable 04/27/16 18:27 Ankit Rods Not Reportable 04/27/16 18:27 Platelet Estimate Consistent w auto 04/27/16 18:27 Clumped Platelets Not Reportable 04/27/16 18:27 Plt Clumps, EDTA Not Reportable 04/27/16 18:27 Large Platelets 1+ 04/27/16 18:27 Giant Platelets Not Reportable 04/27/16 18:27 Platelet Satelliting Not Reportable 04/27/16 18:27 Plt Morphology Comment Not Reportable 04/27/16 18:27 RBC Morphology Not Reportable 04/27/16 18:27 Dimorphic RBCs Not Reportable 04/27/16 18:27 Polychromasia Not Reportable 04/27/16 18:27 Hypochromasia 2+ 04/27/16 18:27 Poikilocytosis 1+ 04/27/16 18:27 Anisocytosis 1+ 04/27/16 18:27 Microcytosis 3+ 04/27/16 18:27 Macrocytosis Not Reportable 04/27/16 18:27 Spherocytes Not Reportable 04/27/16 18:27 Pappenheimer Bodies Not Reportable 04/27/16 18:27 Sickle Cells Not Reportable 04/27/16 18:27 Target Cells Not Reportable 04/27/16 18:27 Tear Drop Cells Not Reportable 04/27/16 18:27 Ovalocytes Not Reportable 04/27/16 18:27 Helmet Cells Not Reportable 04/27/16 18:27 [place] Bodies Not Reportable 04/27/16 18:27 [place] Rings Not Reportable 04/27/16 18:27 [place] Cells Not Reportable 04/27/16 18:27 Bite Cells Not Reportable 04/27/16 18:27 Crenated Cell Not Reportable 04/27/16 18:27 Elliptocytes Few 04/27/16 18:27 Acanthocytes (Spur) Not Reportable 04/27/16 18:27 Rouleaux Not Reportable 04/27/16 18:27 Hemoglobin C Crystals Not Reportable 04/27/16 18:27 Schistocytes Not Reportable 04/27/16 18:27 Malaria parasites Not Reportable 04/27/16 18:27 [place] Bodies Not Reportable 04/27/16 18:27 Hem Pathologist Commnt No 04/27/16 18:27 PT 16.4 Sec. (12.2-14.9) H 04/28/16 11:19 INR 1.33 (0.87-1.13) H 04/28/16 11:19 APTT 29.6 Sec. (24.2-36.6) 04/28/16 11:19 Sodium 138 mmol/L (137-145) 04/30/16 04:00 Potassium 4.4 mmol/L (3.6-5.0) 04/30/16 04:00 Chloride 100.5 mmol/L (98-107) 04/30/16 04:00 Carbon Dioxide 23 mmol/L (22-30) 04/30/16 04:00 Anion Gap 19 mmol/L 04/30/16 04:00 BUN 10 mg/dL (7-17) 04/30/16 04:00 Creatinine 0.7 mg/dL (0.7-1.2) 04/30/16 04:00 Estimated GFR > 60 ml/min 04/30/16 04:00 BUN/Creatinine Ratio 14.28 % 04/30/16 04:00 Glucose 96 mg/dL (65-100) 04/30/16 04:00 Calcium 8.8 mg/dL (8.4-10.2) 04/30/16 04:00 Magnesium 2.3 mg/dL (1.7-2.3) 04/29/16 10:56 Troponin T < 0.010 ng/mL (0.00-0.029) 04/28/16 09:57 TSH 5.640 mlU/mL (0.270-4.200) H 04/29/16 10:56 Free T4 1.08 ng/dL (0.76-1.46) 04/29/16 15:37 Digoxin 1.4 ng/mL (0.9-2.0) 04/28/16 11:19
[2016-04-30] MEDS: XARELTO PO SCH (21:07)
[2016-05-01] MEDS: CARDIZEM PO SCH (00:16)
[2016-05-01 05:22] LABS: Basophils % (Auto) 0.6 % (0.0-1.8); Eosinophils % (Auto) 2.7 % (0.0-4.3); Mean Corpuscular HGB Conc 29 % (30-34); Platelet Count 271 K/mm3 (140-440); White Blood Count 14.2 K/mm3 (4.5-11.0)
[2016-05-01 05:32] LABS: Hematocrit 32.1 % (30.3-42.9); Mean Corpuscular Hemoglobin 17 pg (28-32); Mean Corpuscular Volume 57 fl (79-97); Red Cell Distribution Width 24.5 % (13.2-15.2)
[2016-05-01 05:33] LABS: Hemoglobin 9.5 gm/dl (10.1-14.3)
[2016-05-01 05:44] LABS: Anion Gap 19 mmol/L; BUN/Creatinine Ratio 14.28; Blood Urea Nitrogen 10 mg/dL (7-17); Calcium 8.5 mg/dL (8.4-10.2); Carbon Dioxide 23 mmol/L (22-30); Chloride 99.7 mmol/L (98-107); Glucose 124 mg/dL (65-100); Potassium 4.3 mmol/L (3.6-5.0); Sodium 137 mmol/L (137-145)
[2016-05-01] MEDS ORDERED: CARDIZEM CD PO SCH ×3 (10:00→13:00)
--- NOTE | 2016-05-01 10:55 | Progress Note ---
Assessment and Plan Atypical chest pain-->likely costochondritis resolved troponin negative x 3 Atrial fibrillation-->currently controlled ventricular rate Echo 04/2016: mild LVH, EF 45-50%, impaired relaxation digoxin discontinued continue cardizem CD 300mg daily, metoprolol 25mg BID continue Xarelto Hypertension BP stable Leukocytosis Anemia Stable cardiac status. Continue current management. Patient may be discharged from a cardiac standpoint. Follow up with her primary certified ophthalmic technologist at [facility]. The patient has been seen in conjunction with Dr. Foote who agrees with the assessment and plan of care. Subjective Date of service: 05/01/16 Principal diagnosis: atypical chest pain, afib with RVR Interval history: The patient is resting in bed. No new complaints. Atrial fibrillation with HR 90s-120s on the monitor. Objective Last Vital Signs Temp 98.2 F 05/01/16 09:09 Pulse 82 05/01/16 11:45 Resp 18 05/01/16 09:09 BP 128/77 05/01/16 09:09 Pulse Ox 96 05/01/16 09:09 - Physical Examination General: No Apparent Distress HEENT: Positive: Normocephaly, Mucus Membranes Moist Neck: Positive: neck supple, trachea midline Cardiac: Positive: irregularly irregular, S1/S2 Lungs: Positive: clear to auscultation Neuro: Positive: Grossly Intact Abdomen: Positive: Soft, Active Bowel Sounds. Negative: Tender Skin: Positive: Clear. Negative: Rash Extremities: Present: normal. Absent: edema - Labs and Meds CBC 05/01/16 Range/Units 05:02 WBC 14.2 H (4.5-11.0) K/mm3 RBC 5.60 H (3.65-5.03) M/mm3 Hgb 9.5 L (10.1-14.3) gm/dl Hct 32.1 (30.3-42.9) % Plt Count 271 (140-440) K/mm3 Lymph # 1.7 (1.2-5.4) K/mm3 [facility] # 1.0 H (0.0-0.8) K/mm3 Eos # 0.4 (0.0-0.4) K/mm3 Baso # 0.1 (0.0-0.1) K/mm3 Comprehensive Metabolic Panel 05/01/16 Range/Units 05:02 Sodium 137 (137-145) mmol/L Potassium 4.3 (3.6-5.0) mmol/L Chloride 99.7 (98-107) mmol/L Carbon Dioxide 23 (22-30) mmol/L BUN 10 (7-17) mg/dL Creatinine 0.7 (0.7-1.2) mg/dL Glucose 124 H (65-100) mg/dL Calcium 8.5 (8.4-10.2) mg/dL - Imaging and Cardiology EKG: image reviewed Echo: report reviewed (04/2016: mild LVH, EF 45-50%, impaired relaxation ) - Telemetry EKG Rhythm: Atrial Fibrillation
--- NOTE | 2016-05-01 11:36 | Event Note ---
Date: 05/01/16 Patient seen and examined. Discharge has been completed for today. Please see discharge summary from yesterday.
--- NOTE | 2016-05-01 11:44 | Discharge Summary ---
Providers - Providers Date of Admission: 04/28/16 10:34 Date of discharge: 05/01/16 Attending physician: DEBRA KENNEDY 04/28/16 11:17 Consult to Physician [CONS] Routine Consulting Provider: TAMIR CELIS Reason For Exam: AFIB RVR Place consult to:: buddy Notified:: buddy Primary care physician: ASSEMBLER [facility]IM Hospitalization Reason for admission: afib with RVR Condition: Fair Hospital course: The patient is a 60 year old female with a history of hypertension, atrial fibrillation who presented with complaints of substernal chest discomfort ongoing since Thursday. She also reported mild shortness of breath and cough productive of white sputum and stated the pain is worse with coughing and deep inspiration. No palpitations, nausea, vomiting or diaphoresis. EKG in the ER showed atrial fibrillation with HR 140. Troponin negative x 3. WBC 18.2. Hemoglobin 9.4. She stated that she had been taking Xarelto but was taken off of it several months ago due to anemia. She was supposed to have a colonoscopy but did not follow up. She denies any active bleeding. She normally receives care at [facility]. Echocardiogram revealed mild LVH, EF 45-50% and impaired relaxation. Digoxin was discontinued. Cardiology recommended continuation of Cardizem 60 mg every 6 hours and metoprolol 25 mg twice a day. Cardiology also recommended long-term anticoagulation for a CHADS-VASC =2. However, patient refuses but the risks and benefits were discussed with the patient in detail. Dedicated discharge time 35 minutes. Disposition: DISCHARGED TO HOME OR SELFCARE Time spent for discharge: 35 - Discharge Diagnoses (1) Atrial fibrillation with RVR Status: Acute (2) Chest pain Status: Acute Qualifiers: Chest pain type: unspecified Qualified Code(s): R07.9 - Chest pain, unspecified (3) Leukocytosis Status: Acute Qualifiers: Leukocytosis type: unspecified Qualified Code(s): D72.829 - Elevated white blood cell count, unspecified Core Measure Documentation - Palliative Care Palliative Care/ Comfort Measures: Not Applicable - Core Measures Any of the following diagnoses?: none Exam - Constitutional Vitals: Temp Pulse Resp BP Pulse Ox 98.2 F 88 18 128/77 96 05/01/16 09:09 05/01/16 09:09 05/01/16 09:09 05/01/16 09:09 05/01/16 09:09 General appearance: Present: no acute distress, well-nourished - EENT Eyes: Present: PERRL ENT: hearing intact, clear oral mucosa - Neck Neck: Present: supple, normal ROM - Respiratory Respiratory effort: normal Respiratory: bilateral: CTA - Cardiovascular Heart Sounds: Present: S1 & S2. Absent: rub, click - Extremities Extremities: pulses symmetrical, No edema Peripheral Pulses: within normal limits - Abdominal General gastrointestinal: Present: soft, non-tender, non-distended, normal bowel sounds Female genitourinary: Present: normal - Integumentary Integumentary: Present: clear, warm, dry - Musculoskeletal Musculoskeletal: gait normal, strength equal bilaterally - Psychiatric Psychiatric: appropriate mood/affect, intact judgment & insight - Neurologic Neurologic: CNII-XII intact, moves all extremities Plan Activity: no restrictions Weight Bearing Status: Full Weight Bearing Diet: low fat, low cholesterol, low salt Follow up with: PRIMARY CARE, [Primary Care Provider] - 3-5 Days Prescriptions: Diltiazem Cd [Cardizem CD] 300 mg PO QDAY #30 capsule Metoprolol [Lopressor TAB] 25 mg PO BID #60 tablet Rivaroxaban [Xarelto] 20 mg PO QDAY #30 tablet
[2016-05-01] MEDS: LOPRESSOR PO SCH (11:45)
[2016-05-01] MEDS: ROCEPHIN/NS 1 GM/50 ML 1 GM/50 ML BAG IV SCH (11:47)
[2016-05-01] MEDS: XARELTO PO SCH (11:55)
--- NOTE | 2016-05-01 12:46 | XRay Report ---
ROUTINE CHEST, TWO VIEWS: HISTORY: Shortness of breath, evaluate for pneumonia. The trachea, heart, mediastinal contour, lung mohr and bony thorax are unremarkable. IMPRESSION: Unremarkable chest x-ray.
[2016-05-01 13:33] VITALS: BP 121/80
== END 2016-05-01 18:30 | disposition home or self-care (01) | DRG 308 ==
LOC: ED 17:40 → 4A 04-28 10:34
PROVIDERS: ADMIT Internal Medicine; ATTEND Hospitalist
DX: I48.91 Unspecified atrial fibrillation (principal); J96.00 Acute respiratory failure, unspecified whether with hypoxia or hypercapnia; I10 Essential (primary) hypertension; D64.9 Anemia, unspecified; D72.829 Elevated white blood cell count, unspecified; Z82.49 Family history of ischemic heart disease and other diseases of the circulatory system; Z98.51 Tubal ligation status
CPT/HCPCS: 36415; 71020; 71275; 80048; 80162; 83735; 84439; 84443; 84484; 85007; 85025; 85027; 85610; 85730; 87040; 87086; 93005; 93010; 93306; 94640; 96365; J0696; Q9967

== ENCOUNTER 2016-05-06 12:03 | Inpatient (IN) | payer SELFPAY ==
[2016-05-06] MEDS ORDERED: CARDIZEM ONE (12:38)
[2016-05-06] MEDS ORDERED: CARDIZEM IV ONE ×2 (12:50→13:03)
--- NOTE | 2016-05-06 12:53 | Emergency Department Report ---
HPI - General Chief Complaint: Chest Pain Time Seen by Provider: 05/06/16 12:45 - HPI HPI: This is a 60-year-old Afro-[place] female presents in the emergency department from home with complaint of some generalized chest pain that worsens with respirations, shortness of breath, some dizziness and palpitations. Patient presents in atrial fibrillation with RVR. She has a history of this that is relatively recent diagnosis. The patient was just admitted here on 05/27 and discharged 5 days ago for similar symptoms. The patient has been taking Cardizem and Lopressor for blood pressure and rate control. She was prescribed Xarelto but admits to noncompliance secondary to the cost of the medication as well as the fact that it caused her to bleed. She does not have a primary care doctor or lute packer or applier. She has not taken anything for symptoms prior presentation. ED Past Medical Hx - Past Medical History Hx Hypertension: Yes Additional medical history: ATRIAL FIB. PNEUMONIA - Surgical History Additional Surgical History: TUBAL LIGATION - Social History Smoking Status: Never Smoker - Medications Home Medications: Home Medications Medication Instructions Recorded Confirmed Last Taken Type Diltiazem Cd [Cardizem CD] 300 mg PO QDAY #30 capsule 05/01/16 Unknown Rx Metoprolol [Lopressor TAB] 25 mg PO BID #60 tablet 05/01/16 Unknown Rx Rivaroxaban [Xarelto] 20 mg PO QDAY #30 tablet 05/01/16 Unknown Rx ED Review of Systems ROS: Stated complaint: CHEST PAIN Other details as noted in HPI Comment: All other systems reviewed and negative Constitutional: denies: chills, fever Eyes: denies: eye pain, eye discharge, vision change ENT: denies: ear pain, throat pain Respiratory: shortness of breath. denies: cough Cardiovascular: chest pain, palpitations. denies: edema Gastrointestinal: denies: abdominal pain, nausea, diarrhea Genitourinary: denies: urgency, dysuria, discharge Musculoskeletal: denies: back pain, joint swelling, arthralgia Skin: denies: rash, lesions Neurological: denies: headache, weakness, paresthesias Physical Exam - Physical Exam Vital Signs: Vital Signs 05/06/16 12:29 Temperature 98.5 F Pulse Rate 154 H Respiratory 24 Rate Blood Pressure 143/113 O2 Sat by Pulse 100 Oximetry Physical Exam: GENERAL: The patient is well-developed well-nourished. HEENT: Normocephalic. Atraumatic. Extraocular motions are intact. Patient has moist mucous membranes. Pupils equal reactive to light bilaterally. NECK: Supple. Trachea is midline. CHEST/LUNGS: Clear to auscultation. There is no respiratory distress noted. HEART/CARDIOVASCULAR: Irregularly irregular with rapid rate. ABDOMEN: Abdomen is soft, nontender. Patient has normal bowel sounds. There is no abdominal distention. SKIN: There is no rash. Skin is warm and dry. NEURO: The patient is awake, alert, and oriented. The patient is cooperative. The patient has no focal neurologic deficits. The patient has normal speech. MUSCULOSKELETAL: There is no tenderness or deformity. There is no limitation range of motion. There is no evidence of acute injury. Radial pulses +2 over 4 bilaterally. Cap refill less than 2 seconds. ED Course Vital Signs 05/06/16 12:29 Temperature 98.5 F Pulse Rate 154 H Respiratory 24 Rate Blood Pressure 143/113 O2 Sat by Pulse 100 Oximetry ED Medical Decision Making - Lab Data Result diagrams: 05/06/16 13:01 05/06/16 13:01 - EKG Data -: EKG Interpreted by Me - EKG Data When compared to previous EKG there are: no significant change (04/28/16) Interpretation: unchanged when compared t (04/28/16), other (atrial fibrillation with RVR with a rate of 154 bpm. No obvious signs of ST elevation WI.) - Radiology Data Radiology results: image reviewed interpreted by me: Chest x-ray did not show any acute process. Heart is normal shape and size. No effusions. No pneumothorax. No signs of pneumonia seen. - Medical Decision Making 60-year-old female presents to the emergency department with some chest pain, shortness of breath, palpitations. Patient found to be in atrial fibrillation with RVR. Patient required to IV push of Cardizem followed by an IV drip. This provided rate control but did not convert her back to sinus rhythm. Patient has a first troponin that is negative. EKG confirms atrial fibrillation with RVR. Chest x-ray does not show any acute process. Patient's labs also show a leukocytosis of 16,000 but no obvious source of infection found at this time. She also has some hypothyroidism with a TSH greater than 7. Patient started on heparin drip. She will be admitted to hospital for further evaluation and treatment and has been accepted for admission by the hospitalist, Dr. Laguna. - Differential Diagnosis atrial fibrillation, WI, thyroid dysfunction, dysrhythmia Critical Care Time: No Critical care attestation.: If time is entered above; I have spent that time in minutes in the direct care of this critically ill patient, excluding procedure time. ED Disposition Clinical Impression: Atrial fibrillation with RVR, Palpitations Leukocytosis Qualifiers: Leukocytosis type: unspecified Qualified Code(s): D72.829 - Elevated white blood cell count, unspecified Chest pain Qualifiers: Chest pain type: unspecified Qualified Code(s): R07.9 - Chest pain, unspecified Hypothyroid Qualifiers: Hypothyroidism type: unspecified Qualified Code(s): E03.9 - Hypothyroidism, unspecified Disposition: OP ADMITTED IP TO THIS HOSP Is pt being admited?: Yes Does the pt Need Aspirin: Yes Condition: Stable Instructions: Chest Pain (ED) Time of Disposition: 15:08
[2016-05-06] MEDS ORDERED: CARDIZEM/D5W 100MG/100ML 100 MG/100 ML BAG IV ONE ×2 (13:01→13:03)
[2016-05-06 13:14] LABS: Basophils % (Auto) 0.8 % (0.0-1.8); Eosinophils % (Auto) 0.2 % (0.0-4.3); Mean Corpuscular HGB Conc 29 % (30-34); Platelet Count 376 K/mm3 (140-440)
[2016-05-06 13:19] LABS: Hematocrit 31.6 % (30.3-42.9); Hemoglobin 9.3 gm/dl (10.1-14.3); Mean Corpuscular Hemoglobin 17 pg (28-32); Mean Corpuscular Volume 58 fl (79-97); Red Cell Distribution Width 24.5 % (13.2-15.2)
[2016-05-06 13:31] LABS: Anion Gap 20 mmol/L; BUN/Creatinine Ratio 11.11; Blood Urea Nitrogen 10 mg/dL (7-17); Calcium 8.8 mg/dL (8.4-10.2); Carbon Dioxide 21 mmol/L (22-30); Chloride 102.6 mmol/L (98-107); Glucose 118 mg/dL (65-100); Potassium 3.6 mmol/L (3.6-5.0); Sodium 140 mmol/L (137-145)
[2016-05-06] MEDS ORDERED: HEPARIN 10,000 UNITS/10 ML IV ONE (13:35)
--- NOTE | 2016-05-06 13:37 | Admit Criteria Form ---
Admission Criteria Documentation: ATRIAL FIBRILLATION Clinical Indications for Admission to Inpatient Care (Place 'X' for any and all applicable criteria): Admission indicated for ANY ONE of the following(1)(2)(3)(4)(5) : [ ]I. Myocardial ischemia [X]II. Dyspnea or hypoxemia [ ]III. Hemodynamic instability [ ]IV. Heart failure (e.g., pulmonary edema) (7) [ ]V. New-onset (less than 48 hours) atrial fibrillation with high risk for causing complications secondary to comorbidities (eg, symptomatic heart failure ) [ ]. Altered mental status [ ]VII. Syncope [ ]VIII. Patient has implantable cardioverter defibrillator that has fired more than once within past 24hr or needs immediate adjustment of settings that cannot be done other than in inpatient setting. (8) [ ]IX. Suspected accessory pathway (e.g., Adlng-Boodexuhi-Kgppv syndrome) on ECG [ ]X. Recent systemic thromboembolism (eg, stroke) [ ]XI. Medication toxicity (e.g., digitalis) causing arrhythmia(9) [X]XII. Underlying medical condition that necessitates inpatient care (e.g., thyrotoxicosis, pneumonia) (10) [ ]XIII. Continuous ECG monitoring is required for condition causing arrhythmia (e.g., severe hyperkalemia, hypokalemia, acid-base disturbance).(11)(12)(13) [ ]XIV. Initiation of antiarrhythmic drug therapy is needed in patient at high risk of adverse effects as indicated by ANY ONE of the following: [ ]a) Significant structural heart disease (e.g., reduced ejection fraction, congenital heart disease, valvular heart disease) [ ]b) Prolonged QT interval [ ]c) Underlying sinus node or atrioventricular conduction disturbances [ ]d) Need for treatment with antiarrhythmic drugs that have significant proarrhythmic potential (e.g., dofetilide, sotalol, procainamide) [ ]e) Patient whose sinus rhythm has never been observed on ECG [ ]XV. Intolerable symptoms despite optimal outpatient treatment [ ]XVI. Elective or urgent cardioversion that cannot be performed on outpatient basis or during observation care. [A] (Use also Atrial Fibrillation: Observation Care ) as appropriate.(14) [ ]XVII.Contraindications and/or Inappropriate clinical situations for Observational Care in patients with Atrial Fibrillation, when ANY ONE of the following is required: [ ]a) Patient with High risk of cardiac embolism (e.g, patients with previous cardiac embolism, LVEF < 40%, age >75 and patients with prosthetic valve) 18 [ ]b) Patient with Moderate risk including DM patient, CAD and patient aged 65-75 18 [ ]c) Patient with any change in cardiac biomarker especially troponin should be managed as high risk in an inpatient setting 19 [ ]d) Physician judgement irrespective of ECG and other diagnostic findings 20 [ ]XVIII.General contraindications and/or Inappropriate clinical situations for Observational Care in patients with Atrial Fibrillation, when ANY ONE of the following is required: [ ]a) Prediction of prolongation of LOS based on ANY ONE of the following may be considered as a contraindication for observational care 2, 3, 4, 5, 6, 7, 8, 9, 10, 11 [ ]i) Age > 65 yrs. [ ]ii) Patient arriving by ambulance [ ]iii) Patient with high acuity [ ]iv) Patient requiring vital sign monitoring [ ]v) Patient on IV medication [ ]b) Systolic blood pressures 180mmHg 3,12 [ ]c) Patient with altered mental status including delirium and other alteration of consciousness3 [ ]d) Patient whose discharge disposition will be to a assisted home or rehabilitation home should not be managed in Emergency Department Observation Unit. CMS rule requires 3 days hospital stay before such placement.3,13 [ ]e) Patient with failure to thrive due to broad array of etiologies 3,16,17 [ ]f) Inability to ambulate 3,14 Extended stay beyond goal length of stay may be needed for (1)(25)(26): [ ]a) Unstable comorbidities [ ]b) Persistently uncontrolled atrial fibrillation or other arrhythmias [ ]c) Acute thromboembolic event (e.g., stroke, limb ischemia) [ ]d) Need for inpatient attainment of full anticoagulation The original [employer] content created by [employer] has been revised. The portions of the content which have been revised are identified through the use of italic text or in bold, and [facility] has neither reviewed nor approved the modified material. All other unmodified content is copyright [employer]. Please see references footnoted in the original [employer] edition 2016 Admission Criteria Met: Yes
--- NOTE | 2016-05-06 13:59 | XRay Report ---
PORTABLE CHEST INDICATION: Shortness of breath. COMPARISON: 05/01/2016 FINDINGS: Portable, frontal chest radiograph demonstrates stable cardiomediastinal silhouette. Right hemidiaphragm mildly elevated with increased right basilar atelectasis. Slight left basilar atelectasis may again be present. Minimal aortic knob calcifications. No large pleural effusions or CHF. EKG leads. Stable bony degenerative changes. CONCLUSION: Mild increased right basilar atelectasis, as described. Thank you for the opportunity to participate in this patient's care.
[2016-05-06 14:12] LABS: INR 1.17 (0.87-1.13)
[2016-05-06] MEDS ORDERED: BABY ASPIRIN PO ONE (15:08)
[2016-05-06] MEDS: HEPARIN/ 0.45% NACL-25,000 UNIT/500 ML 25,000 UNITS/500 ML BAG IV SCH (15:16)
[2016-05-06] MEDS ORDERED: BABY ASPIRIN ONE (17:06)
[2016-05-06] MEDS ORDERED: LOPRESSOR PO SCH (23:00)
--- NOTE | 2016-05-06 23:01 | History and Physical Report ---
History of Present Illness Date of examination: 05/06/16 Date of admission: 05/06/16 15:09 Chief complaint: Sob and palpitations since am History of present illness: TANACROSS:60 y/o AAF recently discharged from [facility] after being treated for Afib with RVR comes in for Chest tightness and palpitations since AM.Patient was discharged on Xarelto for Afib.Patient states she cannot afford Xarelto at this point.Patient had extensive w/u from 04/29 through 05/01. Had ECHO and CTA.No Lexiscan was done.Usually follows up at [facility].No PCP. Past History Past Medical History: atrial fib, arrhythmia, hypertension Past Surgical History: Other (Tubal ligation) Social history: lives with family, full code. denies: smoking, alcohol abuse, prescription drug abuse, IV drug use Medications and Allergies Allergies Allergy/AdvReac Type Severity Reaction Status Date / Time No Known Allergies Allergy Unverified 04/27/16 18:05 Home Medications Medication Instructions Recorded Confirmed Last Taken Type Diltiazem Cd [Cardizem CD] 300 mg PO QDAY #30 capsule 05/01/16 05/06/16 Unknown Rx Metoprolol [Lopressor TAB] 25 mg PO BID #60 tablet 05/01/16 05/06/16 Unknown Rx Active Meds: Active Medications Diltiazem HCl (Cardizem/D5w 100mg/100ml) 100 mg in 100 mls @ 5 mls/hr IV TITR ONE; 5 MG/HR PRN Reason: Protocol Stop: 05/07/16 09:02 Last Admin: 05/06/16 13:32 Dose: 5 mg/hr, 5 mls/hr Heparin Sodium/Sodium Chloride (Heparin/ 0.45% Nacl-25,000 Unit/500 Ml) 25,000 units in 500 mls @ 30 mls/hr IV TITR BLUE; 1,500 UNITS/HR PRN Reason: Protocol Last Admin: 05/06/16 15:16 Dose: 1,500 units/hr, 30 mls/hr Review of Systems Constitutional: no weight loss, no weight gain Ears, nose, mouth and throat: no hoarseness, no sore throat Breasts: deferred Cardiovascular: chest pain, palpitations, rapid/irregular heart beat, shortness of breath, dyspnea on exertion Respiratory: shortness of breath, dyspnea on exertion, no cough with sputum Gastrointestinal: no abdominal pain, no nausea, no vomiting, no diarrhea, no constipation Genitourinary Female: no flank pain, no dysuria, no urinary frequency, no urgency Menstruation: ammenorrhea Musculoskeletal: no neck stiffness, no neck pain Integumentary: no rash, no pruritis, no redness, no sores Neurological: no seizures, no syncope Psychiatric: no anxiety, no depression Endocrine: no cold intolerance, no heat intolerance, no polyphagia, no polydipsia, no polyuria Hematologic/Lymphatic: no easy bruising, no easy bleeding Allergic/Immunologic: no urticaria, no allergic rhinitis, no wheezing Exam - Physical Exam Narrative exam: WD WN female lying in bed - Constitutional Vitals: Temp Pulse Resp BP Pulse Ox 98.3 F 99 H 20 94/60 97 05/06/16 19:00 05/06/16 19:00 05/06/16 19:00 05/06/16 19:00 05/06/16 21:28 General appearance: Present: no acute distress, well-nourished - EENT Eyes: Present: PERRL ENT: hearing intact, clear oral mucosa - Neck Neck: Present: supple, normal ROM - Respiratory Respiratory effort: normal Respiratory: bilateral: CTA - Cardiovascular Rhythm: irregularly irregular Heart Sounds: Present: S1 & S2. Absent: rub, click - Extremities Extremities: no ischemia, pulses intact, pulses symmetrical, No edema Peripheral Pulses: within normal limits - Abdominal General gastrointestinal: Present: soft, non-tender, non-distended, normal bowel sounds Female genitourinary: Present: normal - Integumentary Integumentary: Present: clear, warm, dry - Musculoskeletal Musculoskeletal: gait normal, strength equal bilaterally - Psychiatric Psychiatric: appropriate mood/affect, intact judgment & insight - Neurologic Neurologic: CNII-XII intact, moves all extremities - Allied Health Allied health notes reviewed: nursing Results - Labs CBC & Chem 7: 05/06/16 13:01 05/06/16 13:01 Labs: Laboratory Last Values WBC 16.0 K/mm3 (4.5-11.0) H 05/06/16 13:01 RBC 5.50 M/mm3 (3.65-5.03) H 05/06/16 13:01 Hgb 9.3 gm/dl (10.1-14.3) L 05/06/16 13:01 Hct 31.6 % (30.3-42.9) 05/06/16 13:01 MCV 58 fl (79-97) L 05/06/16 13:01 MCH 17 pg (28-32) L 05/06/16 13:01 MCHC 29 % (30-34) L 05/06/16 13:01 RDW 24.5 % (13.2-15.2) H 05/06/16 13:01 Plt Count 376 K/mm3 (140-440) 05/06/16 13:01 Lymph % (Auto) 8.0 % (13.4-35.0) L 05/06/16 13:01 Rooks % (Auto) 6.2 % (0.0-7.3) 05/06/16 13:01 Eos % (Auto) 0.2 % (0.0-4.3) 05/06/16 13:01 Baso % (Auto) 0.8 % (0.0-1.8) 05/06/16 13:01 Lymph # 1.3 K/mm3 (1.2-5.4) 05/06/16 13:01 Rooks # 1.0 K/mm3 (0.0-0.8) H 05/06/16 13:01 Eos # 0.0 K/mm3 (0.0-0.4) 05/06/16 13:01 Baso # 0.1 K/mm3 (0.0-0.1) 05/06/16 13:01 Seg Neutrophils % 84.8 % (40.0-70.0) H 05/06/16 13:01 Seg Neutrophils # 13.6 K/mm3 (1.8-7.7) H 05/06/16 13:01 PT 14.8 Sec. (12.2-14.9) 05/06/16 13:50 INR 1.17 (0.87-1.13) H 05/06/16 13:50 APTT 24.0 Sec. (24.2-36.6) L 05/06/16 13:50 Heparin Anti-Xa Level 0.69 U.I./ml (0.3-0.7) 05/06/16 19:37 Sodium 140 mmol/L (137-145) 05/06/16 13:01 Potassium 3.6 mmol/L (3.6-5.0) 05/06/16 13:01 Chloride 102.6 mmol/L (98-107) 05/06/16 13:01 Carbon Dioxide 21 mmol/L (22-30) L 05/06/16 13:01 Anion Gap 20 mmol/L 05/06/16 13:01 BUN 10 mg/dL (7-17) 05/06/16 13:01 Creatinine 0.9 mg/dL (0.7-1.2) 05/06/16 13:01 Estimated GFR > 60 ml/min 05/06/16 13:01 BUN/Creatinine Ratio 11.11 % 05/06/16 13:01 Glucose 118 mg/dL (65-100) H 05/06/16 13:01 Calcium 8.8 mg/dL (8.4-10.2) 05/06/16 13:01 Troponin T < 0.010 ng/mL (0.00-0.029) 05/06/16 19:37 TSH 7.820 mlU/mL (0.270-4.200) H 05/06/16 13:00 - Imaging and Cardiology EKG: report reviewed (Afib with RVR) Assessment and Plan Advance Directives: Yes VTE prophylaxis?: Chemical Plan of care discussed with patient/family: Yes - Patient Problems (1) Atrial fibrillation with RVR Current Visit: Yes Status: Acute Plan to address problem: Patient on Cardizem drip.Patient also on Diltiazem CD 240 mg po qd.Compliance advised.Had Echo 1 week ago which showed EF of 45 to 50 percent. Increase Lopressor dosage for rate control. On Xarelto but cannot afford.Will switch to Coumadin so that she can follow up at [facility] coumadin clinic or [facility] (2) Chest pain Current Visit: Yes Status: Acute Qualifiers: Chest pain type: unspecified Qualified Code(s): R07.9 - Chest pain, unspecified Plan to address problem: CTA and ECHO done one week ago.Will defer about Lexiscan to cardiology. (3) Hypothyroid Current Visit: Yes Status: Acute Qualifiers: Hypothyroidism type: acquired Qualified Code(s): E03.9 - Hypothyroidism, unspecified Plan to address problem: T3 /T4 ordered (4) Palpitations Current Visit: Yes Status: Acute
[2016-05-07] MEDS ORDERED: LOPRESSOR PO SCH (07:15)
[2016-05-07] MEDS: HEPARIN/ 0.45% NACL-25,000 UNIT/500 ML 25,000 UNITS/500 ML BAG IV SCH (08:01)
[2016-05-07] MEDS ORDERED: CARDIZEM CD PO SCH (10:00)
[2016-05-07] MEDS: CARDIZEM CD PO SCH (10:17)
[2016-05-07] MEDS: LOPRESSOR PO SCH ×2 (10:17→22:14)
--- NOTE | 2016-05-07 11:17 | Consultation ---
History of Present Illness Consult date: 05/07/16 Requesting physician: MATEO ROWLEY Consult reason: atrial fibrillation History of present illness: The patient is a 60 year old female with a history of hypertension, atrial fibrillation who presented with complaints of substernal chest pain that started yesterday morning. She states the pain is worse with coughing and deep inspiration. No shortness of breath, palpitations, nausea, vomiting or diaphoresis. EKG in the ER showed atrial fibrillation with HR 150s. She was just discharged from [facility] on 05/01 following and admission for afib with RVR. Troponin negative x 3. WBC 16.0. Hemoglobin 9.3. She states that she has been complaint with her cardizem and metoprolol. She has not been taking Xarelto as she cannot afford it. She normally receives care at [place]. Past History Past Medical History: atrial fib, hypertension Past Surgical History: Other (Tubal ligation) Social history: lives with family, full code. denies: smoking, alcohol abuse, prescription drug abuse, IV drug use Family history: CAD Medications and Allergies Allergies Allergy/AdvReac Type Severity Reaction Status Date / Time No Known Allergies Allergy Unverified 04/27/16 18:05 Home Medications Medication Instructions Recorded Confirmed Last Taken Type Diltiazem Cd [Cardizem CD] 300 mg PO QDAY #30 capsule 05/01/16 05/06/16 Unknown Rx Metoprolol [Lopressor TAB] 25 mg PO BID #60 tablet 05/01/16 05/06/16 Unknown Rx Active Meds: Active Medications Diltiazem HCl (Cardizem Cd) 300 mg PO QDAY [facility] Last Admin: 05/07/16 10:17 Dose: 300 mg Heparin Sodium/Sodium Chloride (Heparin/ 0.45% Nacl-25,000 Unit/500 Ml) 25,000 units in 500 mls @ 30 mls/hr IV TITR BLUE; 1,500 UNITS/HR PRN Reason: Protocol Last Admin: 05/07/16 08:01 Dose: 1,500 units/hr, 30 mls/hr Metoprolol Tartrate (Lopressor) 50 mg PO BID [facility] Last Admin: 05/07/16 10:17 Dose: 50 mg Warfarin Sodium (Coumadin Pharmacy To Dose) 1 each PO PKCONSULT BLUE PRN Reason: Protocol Review of Systems Constitutional: no fever, no chills Ears, nose, mouth and throat: no nasal congestion, no nasal discharge, no sinus pressure Cardiovascular: chest pain, no palpitations, no shortness of breath, no leg edema Respiratory: cough, no shortness of breath, no dyspnea on exertion, no congestion, no wheezing Gastrointestinal: no abdominal pain, no nausea, no vomiting, no diarrhea Genitourinary Female: no dysuria, no urgency Musculoskeletal: no neck stiffness, no neck pain, no myalgias Integumentary: no rash, no pruritis Neurological: no parathesias, no numbness, no tingling, no headaches Endocrine: no cold intolerance, no heat intolerance Hematologic/Lymphatic: no easy bruising, no easy bleeding Allergic/Immunologic: no urticaria, no wheezing Physical Examination Vital Signs Pulse Resp BP Pulse Ox 93 H 15 134/79 100 05/06/16 09:15 05/06/16 09:15 05/06/16 09:15 05/06/16 09:15 General appearance: no acute distress, obese HEENT: Positive: Normocephaly, Mucus Membranes Moist Neck: Positive: neck supple, trachea midline Cardiac: Positive: irregularly irregular, S1/S2 Lungs: Positive: clear to auscultation Neuro: Positive: Grossly Intact Abdomen: Positive: Soft, Active Bowel Sounds. Negative: Tender Skin: Positive: Clear. Negative: Rash Extremities: Present: normal. Absent: edema Results 05/07/16 10:56 05/06/16 13:01 - Imaging and Cardiology Echo: report reviewed EKG: image reviewed EKG interpretations - Telemetry EKG Rhythm: Atrial Fibrillation - EKG Supraventricular dysrhythmia: atrial fibrillation Assessment and Plan Atypical chest pain-->likely costochondritis resolved troponin negative x 3 no acute EKG changes Atrial fibrillation with RVR Echo 04/2016: mild LVH, EF 45-50%, impaired relaxation continue cardizem CD 300mg daily increase metoprolol to 50mg BID continue heparin/coumadin, goal INR 2-3 Hypertension BP stable Leukocytosis Anemia Agree with increasing metoprolol to 50mg BID for better rate control. Will continue close monitoring of HR and BP. The patient has been seen in conjunction with Dr. Pina who agrees with the assessment and plan of care. Thank you Dr. Maradiaga for allowing us to participate in the care of this patient.
[2016-05-07 11:41] LABS: Mean Corpuscular HGB Conc 29 % (30-34); Platelet Count 303 K/mm3 (140-440); Red Blood Count 5.07 M/mm3 (3.65-5.03); White Blood Count 16.2 K/mm3 (4.5-11.0)
[2016-05-07 11:43] LABS: Hematocrit 29.2 % (30.3-42.9); Hemoglobin 8.4 gm/dl (10.1-14.3)
[2016-05-07 11:44] LABS: Mean Corpuscular Hemoglobin 17 pg (28-32); Mean Corpuscular Volume 58 fl (79-97); Red Cell Distribution Width 24.3 % (13.2-15.2)
--- NOTE | 2016-05-07 15:04 | Progress Note ---
Assessment and Plan Assessment and plan: The patient is a 60 year old female with a history of hypertension, atrial fibrillation recently discharged from the hospital after she was treated for A. fib with pleuritic chest pain. Patient resents today with complaint of chest tightness which she states starts after she feels anxious. She substernal for further intensity and now resolved. He was also noted to have palpitation on presentation was noted to be in A. fib with RVR which is back to sinus rhythm at this time. She reports not taking Xarelto due to the expense and again now willing to take Coumadin. During her last hospitalization she stated She normally receives care at [place]. Echocardiogram revealed mild LVH, EF 45-50% and impaired relaxation. Digoxin was discontinued. Cardiology recommended continuation of Cardizem 60 mg every 6 hours and metoprolol 25 mg twice a day. Cardiology also recommended long-term anticoagulation for a CHADS-VASC =2. * Atrial fibrillation with RVR-now back to sinus rhythm, question compliance with medications. Continue Coumadin patient now willing to take Coumadin. she can follow up at [place] coumadin clinic or [facility] * Atypical chest pain- could be secondary to anxiety but patient does have risk factors, CTA and ECHO done one week ago.Will defer about Lexiscan to cardiology. Have discussed with cardiology * Hypothyroid- T3 /T4 ordered and pending * Obesity-Weight loss plan of care discussed with the patient * Leukocytosis-unknown etiology no fever. No warmth. No chills. Imaging study consented for lower lobe infiltrate. Was started on empiric Levaquin and monitor. * Possible pneumonitis-as indicated above start on empiric Levaquin and monitor. * Plan of care discussed with the patient in detail and also with infectious disease technician History Interval history: Demnir-ky-itjge pain Patient seen and examined this morning in no acute distress Reports improvement of chest pain. She denies nausea, vomiting, diarrhea No fever noted blood pressure controlled No adverse events reported to me by nursing staff Hospitalist Physical - Physical exam Narrative exam: VITAL SIGNS: Reviewed. GENERAL: The patient appeared well nourished and normally developed, obese. Vital signs as documented. HEAD: No signs of head trauma. EYES: Pupils are equal. Extraocular motions intact. EARS: Hearing grossly intact. MOUTH: Oropharynx is normal. NECK: No adenopathy, no JVD. CHEST: Chest with clear breath sounds bilaterally. No wheezes, rales, or rhonchi. CARDIAC: Regular rate and rhythm. S1 and S2, without murmurs, gallops, or rubs. VASCULAR: No Edema. Peripheral pulses normal and equal in all extremities. ABDOMEN: Soft, without detectable tenderness. No sign of distention. No rebound or guarding, and no masses palpated. Bowel Sounds normal. MUSCULOSKELETAL: Good range of motion of all major joints. Extremities without clubbing, cyanosis or edema. NEUROLOGIC EXAM: Alert and oriented x 3. No focal sensory or strength deficits. Speech normal. Follows commands. PSYCHIATRIC: Mood normal. SKIN: No rash or lesions. - Constitutional Vitals: Temp Pulse Resp BP Pulse Ox 98.6 F 86 18 115/69 97 05/07/16 09:26 05/07/16 10:17 05/07/16 09:26 05/07/16 10:17 05/07/16 09:26 General appearance: Present: no acute distress, well-nourished Results - Labs CBC & Chem 7: 05/07/16 10:56 05/06/16 13:01 Labs: Laboratory Last Values WBC 16.2 K/mm3 (4.5-11.0) H 05/07/16 10:56 RBC 5.07 M/mm3 (3.65-5.03) H 05/07/16 10:56 Hgb 8.4 gm/dl (10.1-14.3) L 05/07/16 10:56 Hct 29.2 % (30.3-42.9) L 05/07/16 10:56 MCV 58 fl (79-97) L 05/07/16 10:56 MCH 17 pg (28-32) L 05/07/16 10:56 MCHC 29 % (30-34) L 05/07/16 10:56 RDW 24.3 % (13.2-15.2) H 05/07/16 10:56 Plt Count 303 K/mm3 (140-440) 05/07/16 10:56 Lymph % (Auto) 8.0 % (13.4-35.0) L 05/06/16 13:01 [place] % (Auto) 6.2 % (0.0-7.3) 05/06/16 13:01 Eos % (Auto) 0.2 % (0.0-4.3) 05/06/16 13:01 Baso % (Auto) 0.8 % (0.0-1.8) 05/06/16 13:01 Lymph # 1.3 K/mm3 (1.2-5.4) 05/06/16 13:01 [place] # 1.0 K/mm3 (0.0-0.8) H 05/06/16 13:01 Eos # 0.0 K/mm3 (0.0-0.4) 05/06/16 13:01 Baso # 0.1 K/mm3 (0.0-0.1) 05/06/16 13:01 Seg Neutrophils % 84.8 % (40.0-70.0) H 05/06/16 13:01 Seg Neutrophils # 13.6 K/mm3 (1.8-7.7) H 05/06/16 13:01 PT 14.8 Sec. (12.2-14.9) 05/06/16 13:50 INR 1.17 (0.87-1.13) H 05/06/16 13:50 APTT 24.0 Sec. (24.2-36.6) L 05/06/16 13:50 Heparin Anti-Xa Level 0.69 U.I./ml (0.3-0.7) 05/06/16 19:37 Sodium 140 mmol/L (137-145) 05/06/16 13:01 Potassium 3.6 mmol/L (3.6-5.0) 05/06/16 13:01 Chloride 102.6 mmol/L (98-107) 05/06/16 13:01 Carbon Dioxide 21 mmol/L (22-30) L 05/06/16 13:01 Anion Gap 20 mmol/L 05/06/16 13:01 BUN 10 mg/dL (7-17) 05/06/16 13:01 Creatinine 0.9 mg/dL (0.7-1.2) 05/06/16 13:01 Estimated GFR > 60 ml/min 05/06/16 13:01 BUN/Creatinine Ratio 11.11 % 05/06/16 13:01 Glucose 118 mg/dL (65-100) H 05/06/16 13:01 Calcium 8.8 mg/dL (8.4-10.2) 05/06/16 13:01 Troponin T < 0.010 ng/mL (0.00-0.029) 05/06/16 22:49 TSH 9.370 mlU/mL (0.270-4.200) H 05/07/16 07:50 Free T4 0.85 ng/dL (0.76-1.46) 05/07/16 07:50 - Imaging and Cardiology EKG: image reviewed (normal sinus rhythm) Chest x-ray: image reviewed (mild infiltrate right lower lobe)
[2016-05-07] MEDS ORDERED: COUMADIN PO SCH (17:00)
[2016-05-07] MEDS ORDERED: AUGMENTIN 875 MG PO SCH (18:00)
[2016-05-07] MEDS ORDERED: ZOFRAN IV ONE (19:35)
[2016-05-07] MEDS: DILAUDID IV PRN (19:58)
[2016-05-07] MEDS: ZITHROMAX 500 MG in NACL 0.9% 250ML 250 ML IV SCH (22:13)
[2016-05-08] MEDS: HEPARIN/ 0.45% NACL-25,000 UNIT/500 ML 25,000 UNITS/500 ML BAG IV SCH (04:21)
[2016-05-08 06:24] LABS: Mean Corpuscular HGB Conc 29 % (30-34); Platelet Count 306 K/mm3 (140-440); Red Blood Count 4.73 M/mm3 (3.65-5.03); White Blood Count 14.9 K/mm3 (4.5-11.0)
[2016-05-08 06:36] LABS: Hemoglobin 7.8 gm/dl (10.1-14.3)
[2016-05-08 06:38] LABS: Hematocrit 27.3 % (30.3-42.9)
[2016-05-08 06:39] LABS: Mean Corpuscular Hemoglobin 17 pg (28-32); Mean Corpuscular Volume 58 fl (79-97); Red Cell Distribution Width 24.2 % (13.2-15.2)
[2016-05-08 06:45] LABS: Anion Gap 16 mmol/L; Blood Urea Nitrogen 7 mg/dL (7-17); Calcium 8.6 mg/dL (8.4-10.2); Carbon Dioxide 21 mmol/L (22-30); Chloride 100.5 mmol/L (98-107); Glucose 101 mg/dL (65-100); Potassium 3.9 mmol/L (3.6-5.0); Sodium 134 mmol/L (137-145)
[2016-05-08 09:57] LABS: INR 1.31 (0.87-1.13)
--- NOTE | 2016-05-08 10:29 | Progress Note ---
Assessment and Plan Atypical chest pain-->likely costochondritis resolved troponin negative x 3 no acute EKG changes Atrial fibrillation with RVR Echo 04/2016: mild LVH, EF 45-50%, impaired relaxation continue cardizem CD 300mg daily, metoprolol 50mg BID recommend [facility] anti-coagulation with coumadin (unable to afford Xarelto) , on hold for now given significant anemia Anemia hgb 9.3 on admission-->now 7.8 no obvious source of bleeding coumadin on hold recommend GI evaluation Hypertension BP stable Leukocytosis possible LLL infiltrate/pneumonitis abx. per primary Will hold coumadin given significant anemia. Recommend GI evaluation. Patient is stable from a cardiac standpoint to proceed with endoscopy if indicated. The patient has been seen in conjunction with Dr. Pina who agrees with the assessment and plan of care. Subjective Date of service: 05/08/16 Principal diagnosis: atrial fibrillation with RVR Interval history: The patient is resting in bed. Chest pain improved but she is anxious and tearful this morning. Atrial fibrillation with HR 110s-120s on the monitor. Objective Last Vital Signs Temp 97.8 F 05/08/16 08:00 Pulse 91 H 05/08/16 08:00 Resp 20 05/08/16 08:00 BP 111/63 05/08/16 08:00 Pulse Ox 93 05/08/16 08:00 - Physical Examination General: No Apparent Distress HEENT: Positive: Normocephaly, Mucus Membranes Moist Neck: Positive: neck supple, trachea midline Cardiac: Positive: irregularly irregular, S1/S2 Lungs: Positive: clear to auscultation Neuro: Positive: Grossly Intact Abdomen: Positive: Soft, Active Bowel Sounds. Negative: Tender Skin: Positive: Clear. Negative: Rash Extremities: Present: normal. Absent: edema - Labs and Meds Coagulation 05/08/16 Range/Units 09:28 PT 16.2 H (12.2-14.9) Sec. INR 1.31 H (0.87-1.13) CBC 05/07/16 05/08/16 Range/Units 10:56 05:29 WBC 16.2 H 14.9 H (4.5-11.0) K/mm3 RBC 5.07 H 4.73 (3.65-5.03) M/mm3 Hgb 8.4 L 7.8 L (10.1-14.3) gm/dl Hct 29.2 L 27.3 L (30.3-42.9) % Plt Count 303 306 (140-440) K/mm3 Comprehensive Metabolic Panel 05/08/16 Range/Units 05:29 Sodium 134 L (137-145) mmol/L Potassium 3.9 (3.6-5.0) mmol/L Chloride 100.5 (98-107) mmol/L Carbon Dioxide 21 L (22-30) mmol/L BUN 7 (7-17) mg/dL Creatinine 0.7 (0.7-1.2) mg/dL Glucose 101 H (65-100) mg/dL Calcium 8.6 (8.4-10.2) mg/dL - Imaging and Cardiology EKG: image reviewed Echo: report reviewed (04/2016: mild LVH, EF 45-50%, impaired relaxation ) - Telemetry EKG Rhythm: Atrial Fibrillation
[2016-05-08] MEDS: LOPRESSOR PO SCH ×2 (10:37→21:10)
[2016-05-08] MEDS: CARDIZEM CD PO SCH (10:38)
[2016-05-08] MEDS ORDERED: PNEUMOVAX 23 IM ONE (11:58)
[2016-05-08] MEDS ORDERED: FLUARIX QUAD 2016-2017(36 MOS+) IM ONE (12:00)
[2016-05-08 15:09] LABS: INR 1.31 (0.87-1.13)
--- NOTE | 2016-05-08 15:52 | Gastroenterology Consultation ---
History of Present Illness - Reason for Consult Consult date: 05/08/16 microcytic anemia Requesting physician: ALEJANDRO ARROYO - History of Present Illness Ms Marmolejo is a 60 yo aaf with h/o afib who presents with chest pain, sob, and weakness. Patient reports improvement in symptoms since admission, and is being followed by cardiology. She was previously on xeralto, but stopped taking anticoagulation prior to admission. Recommendations are for her to be on half-way warfarin which she states she plans to adhere to. She has had worsening anemia since recent hospitalization from [place]. Anticoagulation has been on hold given severe anemia. Pt denies any signs of overt GI bleeding. She had lower abdominal discomfort on admission which has now resolved. Denies prior colonoscopy/endoscopy. Past History Past Medical History: atrial fib, hypertension Past Surgical History: Other (Tubal ligation) Social history: lives with family, full code. denies: smoking, alcohol abuse, prescription drug abuse, IV drug use Family history: CAD Medications and Allergies Allergies Allergy/AdvReac Type Severity Reaction Status Date / Time Penicillins Allergy Severe Anaphylaxis Verified 05/07/16 18:34 Home Medications Medication Instructions Recorded Confirmed Last Taken Type Diltiazem Cd [Cardizem CD] 300 mg PO QDAY #30 capsule 05/01/16 05/06/16 Unknown Rx Metoprolol [Lopressor TAB] 25 mg PO BID #60 tablet 05/01/16 05/06/16 Unknown Rx Active Meds: Active Medications Diltiazem HCl (Cardizem Cd) 300 mg PO QDAY [facility] Last Admin: 05/08/16 10:38 Dose: 300 mg Hydromorphone HCl (Dilaudid) 1 mg IV Q3H PRN PRN Reason: Pain , Severe (7-10) Last Admin: 05/07/16 19:58 Dose: 1 mg Heparin Sodium/Sodium Chloride (Heparin/ 0.45% Nacl-25,000 Unit/500 Ml) 25,000 units in 500 mls @ 30 mls/hr IV TITR BLUE; 1,500 UNITS/HR PRN Reason: Protocol Last Titration: 05/08/16 08:00 Dose: 1,700 units/hr, 34 mls/hr Azithromycin 500 mg/ Sodium (Chloride) 250 mls @ 250 mls/hr IV Q24H BLUE Last Admin: 05/07/16 22:13 Dose: 250 mls/hr Metoprolol Tartrate (Lopressor) 50 mg PO BID [facility] Last Admin: 05/08/16 10:37 Dose: 50 mg Pantoprazole Sodium (Protonix) 40 mg IV BID [facility] Review of Systems - Review of Systems All systems: negative Constitutional: weakness Psychiatric: depression Exam - Constitutional Vital Signs: Temp Pulse Resp BP Pulse Ox 97.8 F 91 H 20 111/63 93 05/08/16 08:00 05/08/16 10:38 05/08/16 08:00 05/08/16 10:38 05/08/16 08:00 General appearance: no acute distress, obese - EENT Eyes: PERRL, EOM intact ENT: hearing intact - Respiratory Respiratory effort: normal Respiratory: bilateral: CTA - Cardiovascular Rhythm: irregularly irregular Heart Sounds: Present: S1 & S2 Extremities: No edema - Gastrointestinal General gastrointestinal: Present: soft, non-tender, non-distended - Integumentary Integumentary: Present: clear - Neurologic Neurological: alert and oriented x3 - Psychiatric Psychiatric: appropriate mood/affect, depressed - Labs CBC & Chem 7: 05/08/16 05:29 05/08/16 05:29 Lab Results: Laboratory Results - last 24 hr 05/07/16 05/08/16 05/08/16 19:42 05:29 05:29 WBC 14.9 H RBC 4.73 Hgb 7.8 L Hct 27.3 L MCV 58 L MCH 17 L MCHC 29 L RDW 24.2 H Plt Count 306 PT INR Heparin Anti-Xa Level 0.26 L Sodium 134 L Potassium 3.9 Chloride 100.5 Carbon Dioxide 21 L Anion Gap 16 BUN 7 Creatinine 0.7 Estimated GFR > 60 BUN/Creatinine Ratio 10.00 Glucose 101 H Calcium 8.6 05/08/16 05/08/16 05/08/16 05:29 09:28 14:22 WBC RBC Hgb Hct MCV MCH MCHC RDW Plt Count PT 16.2 H 16.2 H INR 1.31 H 1.31 H Heparin Anti-Xa Level 0.21 L 0.25 L Sodium Potassium Chloride Carbon Dioxide Anion Gap BUN Creatinine Estimated GFR BUN/Creatinine Ratio Glucose Calcium Assessment and Plan 60 yo aaf with h/o afib presents with severe microcytic anemia. She has had drop in hct since last admission. Denies signs of overt GI bleeding. Recommendations/plans are for warfarin to be started half-way. Anticoagulation currently held given decreasing hct. Denies prior endoscopy/ colonoscopy. Will plan for egd/colonoscopy tomorrow while anticoagulation is being held for anemia work-up. check iron studies.
[2016-05-08] MEDS ORDERED: GOLYTELY PO ONE (15:56)
[2016-05-08] MEDS ORDERED: DULCOLAX PO ONE (15:56)
--- NOTE | 2016-05-08 16:05 | Progress Note ---
Assessment and Plan Assessment and plan: The patient is a 60 year old female with a history of hypertension, atrial fibrillation recently discharged from the hospital after she was treated for A. fib with pleuritic chest pain. Patient resents today with complaint of chest tightness which she states starts after she feels anxious. She substernal for further intensity and now resolved. He was also noted to have palpitation on presentation was noted to be in A. fib with RVR which is back to sinus rhythm at this time. She reports not taking Xarelto due to the expense and again now willing to take Coumadin. During her last hospitalization she stated She normally receives care at [place]. Echocardiogram revealed mild LVH, EF 45-50% and impaired relaxation. Digoxin was discontinued. Cardiology recommended continuation of Cardizem 60 mg every 6 hours and metoprolol 25 mg twice a day. Cardiology also recommended long-term anticoagulation for a CHADS-VASC =2. * Atrial fibrillation with RVR-now back to sinus rhythm, question compliance with medications. Continue Coumadin patient now willing to take Coumadin. she can follow up at [place] coumadin clinic or [facility] * Atypical chest pain- could be secondary to anxiety but patient does have risk factors, CTA and ECHO done one week ago.Will defer about Lexiscan to cardiology. Have discussed with cardiology * Hypothyroid- T3 /T4 ordered and pending * Obesity-Weight loss plan of care discussed with the patient * Leukocytosis-unknown etiology, no fever. some improvement today. No warmth. No chills. Imaging study consented for lower lobe infiltrate. continue empiric Levaquin and monitor. * Precipitous drop in hemoglobin-consult GI. * Possible pneumonitis-as indicated above start on empiric Levaquin and monitor. * Anxiety-the patient on Xanax when necessary. Discussed with the patient in detail and also with the family. * Plan of care discussed with the patient in detail and also with erosion control specialist History Interval history: Wfgcgw-[id number] pain Patient seen and examined this morning in no acute distress, reports improvement but very emotional. spoke to family also in detail. Reports improvement of chest pain. She denies nausea, vomiting, diarrhea No fever noted blood pressure controlled No adverse events reported to me by nursing staff Hospitalist Physical - Physical exam Narrative exam: VITAL SIGNS: Reviewed. GENERAL: The patient appeared well nourished and normally developed, obese. Vital signs as documented. HEAD: No signs of head trauma. EYES: Pupils are equal. Extraocular motions intact. EARS: Hearing grossly intact. MOUTH: Oropharynx is normal. NECK: No adenopathy, no JVD. CHEST: Chest with clear breath sounds bilaterally. No wheezes, rales, or rhonchi. CARDIAC: Regular rate and rhythm. S1 and S2, without murmurs, gallops, or rubs. VASCULAR: No Edema. Peripheral pulses normal and equal in all extremities. ABDOMEN: Soft, without detectable tenderness. No sign of distention. No rebound or guarding, and no masses palpated. Bowel Sounds normal. MUSCULOSKELETAL: Good range of motion of all major joints. Extremities without clubbing, cyanosis or edema. NEUROLOGIC EXAM: Alert and oriented x 3. No focal sensory or strength deficits. Speech normal. Follows commands. PSYCHIATRIC: Mood normal. SKIN: No rash or lesions. - Constitutional Vitals: Temp Pulse Resp BP Pulse Ox 97.8 F 91 H 20 111/63 93 05/08/16 08:00 05/08/16 10:38 05/08/16 08:00 05/08/16 10:38 05/08/16 08:00 General appearance: Present: no acute distress, obese Results - Labs CBC & Chem 7: 05/08/16 05:29 05/08/16 05:29 Labs: Laboratory Last Values WBC 14.9 K/mm3 (4.5-11.0) H 05/08/16 05:29 RBC 4.73 M/mm3 (3.65-5.03) 05/08/16 05:29 Hgb 7.8 gm/dl (10.1-14.3) L 05/08/16 05:29 Hct 27.3 % (30.3-42.9) L 05/08/16 05:29 MCV 58 fl (79-97) L 05/08/16 05:29 MCH 17 pg (28-32) L 05/08/16 05:29 MCHC 29 % (30-34) L 05/08/16 05:29 RDW 24.2 % (13.2-15.2) H 05/08/16 05:29 Plt Count 306 K/mm3 (140-440) 05/08/16 05:29 Lymph % (Auto) 8.0 % (13.4-35.0) L 05/06/16 13:01 [place] % (Auto) 6.2 % (0.0-7.3) 05/06/16 13:01 Eos % (Auto) 0.2 % (0.0-4.3) 05/06/16 13:01 Baso % (Auto) 0.8 % (0.0-1.8) 05/06/16 13:01 Lymph # 1.3 K/mm3 (1.2-5.4) 05/06/16 13:01 [place] # 1.0 K/mm3 (0.0-0.8) H 05/06/16 13:01 Eos # 0.0 K/mm3 (0.0-0.4) 05/06/16 13:01 Baso # 0.1 K/mm3 (0.0-0.1) 05/06/16 13:01 Seg Neutrophils % 84.8 % (40.0-70.0) H 05/06/16 13:01 Seg Neutrophils # 13.6 K/mm3 (1.8-7.7) H 05/06/16 13:01 PT 16.2 Sec. (12.2-14.9) H 05/08/16 14:22 INR 1.31 (0.87-1.13) H 05/08/16 14:22 APTT 24.0 Sec. (24.2-36.6) L 05/06/16 13:50 Heparin Anti-Xa Level 0.25 U.I./ml (0.3-0.7) L 05/08/16 14:22 Sodium 134 mmol/L (137-145) L 05/08/16 05:29 Potassium 3.9 mmol/L (3.6-5.0) 05/08/16 05:29 Chloride 100.5 mmol/L (98-107) 05/08/16 05:29 Carbon Dioxide 21 mmol/L (22-30) L 05/08/16 05:29 Anion Gap 16 mmol/L 05/08/16 05:29 BUN 7 mg/dL (7-17) 05/08/16 05:29 Creatinine 0.7 mg/dL (0.7-1.2) 05/08/16 05:29 Estimated GFR > 60 ml/min 05/08/16 05:29 BUN/Creatinine Ratio 10.00 % 05/08/16 05:29 Glucose 101 mg/dL (65-100) H 05/08/16 05:29 Calcium 8.6 mg/dL (8.4-10.2) 05/08/16 05:29 Troponin T < 0.010 ng/mL (0.00-0.029) 05/06/16 22:49 TSH 9.370 mlU/mL (0.270-4.200) H 05/07/16 07:50 Free T4 0.85 ng/dL (0.76-1.46) 05/07/16 07:50
[2016-05-08] MEDS ORDERED: XANAX PO PRN (16:09)
[2016-05-08] MEDS: PROTONIX IV SCH (21:10)
[2016-05-08] MEDS: ZITHROMAX 500 MG in NACL 0.9% 250ML 250 ML IV SCH (21:11)
[2016-05-09 06:28] LABS: Mean Corpuscular HGB Conc 29 % (30-34); Platelet Count 307 K/mm3 (140-440); Red Blood Count 4.83 M/mm3 (3.65-5.03); White Blood Count 17.6 K/mm3 (4.5-11.0)
[2016-05-09 06:33] LABS: Hemoglobin 7.9 gm/dl (10.1-14.3)
[2016-05-09 06:34] LABS: Hematocrit 27.5 % (30.3-42.9); Mean Corpuscular Hemoglobin 16 pg (28-32); Mean Corpuscular Volume 57 fl (79-97); Red Cell Distribution Width 24.2 % (13.2-15.2)
[2016-05-09 06:35] LABS: Anion Gap 19 mmol/L; BUN/Creatinine Ratio 8.75; Blood Urea Nitrogen 7 mg/dL (7-17); Calcium 8.7 mg/dL (8.4-10.2); Carbon Dioxide 23 mmol/L (22-30); Chloride 98.9 mmol/L (98-107); Glucose 104 mg/dL (65-100); Potassium 3.5 mmol/L (3.6-5.0); Sodium 137 mmol/L (137-145)
[2016-05-09 06:38] LABS: INR 1.36 (0.87-1.13)
[2016-05-09] MEDS: HEPARIN/ 0.45% NACL-25,000 UNIT/500 ML 25,000 UNITS/500 ML BAG IV SCH ×2 (07:21→16:22)
[2016-05-09] MEDS ORDERED: WATER FOR IRRIG STERILE IR ONE (07:49)
--- NOTE | 2016-05-09 08:45 | Anesthesia Day of Surgery ---
Anesthesia Day of Surgery - Day of Surgery Patient Examined: Yes Patient H&P Reviewed: Yes Patient is NPO: Yes Beta Blockers: Yes
--- NOTE | 2016-05-09 08:49 | Anesthesia Consultation ---
Anesthesia Consult and Med Hx Date of service: 05/09/16 - Airway Anesthetic Teeth Evaluation: Poor (#9 missing) ROM Head & Neck: Adequate Mental/Hyoid Distance: Adequate Mallampati Class: Class II Intubation Access Assessment: Probably Good - Pulmonary Exam CTA: Yes - Cardiac Exam Anesthetic Concerns: Afib - Pre-Operative Health Status ASA Pre-Surgery Classification: ASA3 Proposed Anesthetic Plan: MAC - Pre-Anesthesia Comment Pre-Anesthesia Comments: Echo 04/18: EF45-50%, mild LVH - Pulmonary Hx Smoking: No Hx Asthma: No - Cardiovascular System Hx Hypertension: Yes Hx Angina: Yes (Afib with RVR) - Endocrine Hx Renal Disease: No Hx Liver Disease: No Hx Non-Insulin Dependent Diabetes: No Hx Hypothyroidism: Yes - Hematic Hx Anemia: Yes - Other Systems Hx Cancer: No Hx Obesity: Yes - Additional Comments Anesthesia Medical History Comments: NAC
[2016-05-09] MEDS: LOPRESSOR PO SCH ×2 (09:46→23:10)
[2016-05-09] MEDS: PROTONIX IV SCH ×2 (09:47→23:08)
[2016-05-09] MEDS: CARDIZEM CD PO SCH (09:47)
--- NOTE | 2016-05-09 11:03 | Progress Note ---
Assessment and Plan Atypical chest pain-->likely costochondritis resolved troponin negative x 3 no acute EKG changes Atrial fibrillation with RVR Echo 04/2016: mild LVH, EF 45-50%, impaired relaxation continue cardizem CD 300mg daily, metoprolol 50mg BID recommend usp anti-coagulation with coumadin (unable to afford Xarelto) , on hold for now given significant anemia Anemia hgb 9.3 on admission-->now 7.9 no obvious source of bleeding coumadin on hold await EGC/colonoscopy findings, per GI Hypertension BP stable Leukocytosis possible LLL infiltrate/pneumonitis abx. per primary Continue current management. Anti-coagulation on hold pending EGD/colonoscopy results. The patient has been seen in conjunction with Dr. Pina who agrees with the assessment and plan of care. Subjective Date of service: 05/09/16 Principal diagnosis: atrial fibrillation with RVR Interval history: The patient is resting in bed. She is very anxious about her EGD/colonoscopy this morning. Atrial fibrillation with HR 110s on the monitor. Objective Last Vital Signs Temp 98.1 F 05/09/16 11:27 Pulse 137 H 05/09/16 11:27 Resp 24 05/09/16 11:27 BP 120/59 05/09/16 11:27 Pulse Ox 100 05/09/16 11:27 - Physical Examination General: No Apparent Distress HEENT: Positive: Normocephaly, Mucus Membranes Moist Neck: Positive: neck supple, trachea midline Cardiac: Positive: irregularly irregular, S1/S2 Lungs: Positive: clear to auscultation Neuro: Positive: Grossly Intact Abdomen: Positive: Soft, Active Bowel Sounds. Negative: Tender Skin: Positive: Clear. Negative: Rash Extremities: Present: normal. Absent: edema - Labs and Meds Coagulation 05/08/16 05/09/16 Range/Units 14:22 06:00 PT 16.2 H 16.7 H (12.2-14.9) Sec. INR 1.31 H 1.36 H (0.87-1.13) CBC 05/09/16 Range/Units 06:00 WBC 17.6 H (4.5-11.0) K/mm3 RBC 4.83 (3.65-5.03) M/mm3 Hgb 7.9 L (10.1-14.3) gm/dl Hct 27.5 L (30.3-42.9) % Plt Count 307 (140-440) K/mm3 Comprehensive Metabolic Panel 05/09/16 Range/Units 06:00 Sodium 137 (137-145) mmol/L Potassium 3.5 L (3.6-5.0) mmol/L Chloride 98.9 (98-107) mmol/L Carbon Dioxide 23 (22-30) mmol/L BUN 7 (7-17) mg/dL Creatinine 0.8 (0.7-1.2) mg/dL Glucose 104 H (65-100) mg/dL Calcium 8.7 (8.4-10.2) mg/dL - Imaging and Cardiology EKG: image reviewed Echo: report reviewed (04/2016: mild LVH, EF 45-50%, impaired relaxation ) - Telemetry EKG Rhythm: Atrial Fibrillation
[2016-05-09] MEDS ORDERED: NACL 0.9% 1000 ML 1,000 ML IV SCH (12:00)
[2016-05-09] MEDS ORDERED: PNEUMOVAX 23 IM ONE (12:00)
[2016-05-09] MEDS ORDERED: DIPRIVAN 10 MG/ML IV ONE ×3 (12:17→12:18)
--- NOTE | 2016-05-09 13:05 | Operative Report ---
Operative Report Operative Report: Date of procedure: 05/09/2016 Procedure: Esophagogastroduodenoscopy with biopsy for H. pylori Preprocedure diagnosis: Iron deficiency anemia. Coagulation therapy. Post procedure diagnosis: Minimal prepyloric gastritis. Endoscopist: Dr. Villela Anesthesia: Monitored anesthesia care per anesthesia department Medications: Propofol per anesthesia. Estimated blood loss: 0 After careful discussion of the nature and purpose of the procedure as well as details the technique risks benefits and alternatives consent was obtained. The patient was placed in the left lateral decubitus position and medicated per anesthesia. The tip of the Veritract EQ 570 video scope was passed per orum under direct vision into the esophagus and advanced into the stomach and descending duodenum. The descending duodenum the duodenal bulb and pylorus were symmetrical and normal. The scope was withdrawn into the stomach and the stomach then gently insufflated with air. The antrum revealed a few punctate erosions. 3 biopsies were taken in the prepyloric antrum for H. pylori testing. The stomach was further insufflated and the scope was then retroflexed and partially withdrawn. The cardia, fundus, and body of the stomach were within normal limits and easily distensible.The scope was then withdrawn in the forward position. The esophagogastric junction was at 38 cm. The esophageal body was normal throughout. The procedure was was well tolerated and the patient was observed in recovery. Impressions: Minimal prepyloric gastritis. No findings overall to explain anemia. Plan: Other evaluation with colonoscopy today. Electronically signed: Ken Villela MD
--- NOTE | 2016-05-09 13:07 | Operative Report ---
Operative Report Operative Report: Date of procedure: 05/09/2016 Preprocedure diagnosis: Iron deficiency anemia. Post procedure diagnosis: Moderate left colon diverticulosis. 2 small ascending colon polyps. Procedure: Colonoscopy to the cecum with cold snare polypectomy. Endoscopist: Dr. Villela Anesthesia: Monitored anesthesia care per anesthesia department Estimated blood loss: 0 Medications: Monitored anesthesia care. See separate report by anesthesia for details. After careful discussion of the nature and purpose of the procedure as well as details of the technique risks benefits and alternatives the patient gave consent. Please see recent history and physical from the office. The patient was placed in the left lateral decubitus position and medicated per anesthesia. A rectal exam was performed sphincter tone was normal there were no masses palpable. The Zong 570 scope was passed transanally and advanced under continuous direct vision without difficulty to the cecum. The colon was well prepared. The cecum was normal. The ascending colon revealed 2 small polyps, 6 mm and 7 mm in size, both pedunculated. Both polyps were removed with cold snare resection and retrieved by suction. The transverse colon was normal. Scattered diverticula were present throughout the descending colon and sigmoid colon. The rectum was normal on forward and retroflexed views. The procedure was well-tolerated overall and the patient was observed in recovery. Conclusions: Mild left colon diverticulosis. Small ascending colon polyps. No findings overall to explain iron deficiency anemia. Plan: Await pathology on polyps. Outpatient PillCam study. May cautiously restart anticoagulation in 2 days. Signed electronically: Ken Villela M.D.
--- NOTE | 2016-05-09 13:09 | Event Note ---
Date: 05/09/16 EGD and colonoscopy revealed mild gastritis, small polyps and mild left colon diverticulosis. The polyps were benign in appearance. They were removed with cold snare resection. There were no findings overall to explain iron deficiency state. Will advance diet today. I recommend an outpatient pill camera study. Repeat colonoscopy in 5 years. May cautiously restart anticoagulation in 2 days.
[2016-05-09] MEDS ORDERED: LOPRESSOR IV ONE (13:13)
[2016-05-09 16:25] LABS: INR 1.42 (0.87-1.13)
[2016-05-09] MEDS ORDERED: MYLICON PO PRN (16:40)
--- NOTE | 2016-05-09 16:51 | Progress Note ---
Assessment and Plan Assessment and plan: The patient is a 60 year old female with a history of hypertension, atrial fibrillation recently discharged from the hospital after she was treated for A. fib with pleuritic chest pain. Patient resents today with complaint of chest tightness which she states starts after she feels anxious. She substernal for further intensity and now resolved. He was also noted to have palpitation on presentation was noted to be in A. fib with RVR which is back to sinus rhythm at this time. She reports not taking Xarelto due to the expense and again now willing to take Coumadin. During her last hospitalization she stated She normally receives care at [facility]. Echocardiogram revealed mild LVH, EF 45-50% and impaired relaxation. Digoxin was discontinued. Cardiology recommended continuation of Cardizem 60 mg every 6 hours and metoprolol 25 mg twice a day. Cardiology also recommended long-term anticoagulation for a CHADS-VASC =2. * Atrial fibrillation with RVR-now back to sinus rhythm, question compliance with medications. Coumadin held for endoscopy. Recommendation post endoscopy is to cautiously resume anticoagulation in 2 days. Now willing to take Coumadin. she can follow up at [facility] coumadin clinic or [facility] * Atypical chest pain-resolved could be secondary to anxiety but patient does have risk factors, CTA and ECHO done one week ago.Will defer about Lexiscan to cardiology. Have discussed with cardiology * Hypothyroid- T3 /T4 ordered and pending * Obesity-Weight loss plan of care discussed with the patient * Leukocytosis-unknown etiology, no fever. Still consented for pneumonitis. We 'll continue antibiotics. * Precipitous drop in hemoglobin-consult GI.-He'll endoscopy recommended outpatient. Repeat colonoscopy in 5 years. Small polyps with mild left colon diverticulosis noted. On the polyp appeared benign. * Iron deficiency anemia-will start on iron replacement therapy. * Possible pneumonitis-as indicated above start on empiric Levaquin and monitor. * Anxiety-the patient on Xanax when necessary. Discussed with the patient in detail and also with the family. * Anticipated discharge in a.m. if okay with cardiology. * Plan of care discussed with the patient in detail and also with timber cruiser History Interval history: [id number] pain Patient seen and examined this morning in no acute distress, still emotional but understands the need for the panendoscopy in no acute distress denies any pain. Denies any melena or hemoptysis. Reports improvement of chest pain. She denies nausea, vomiting, diarrhea No fever noted blood pressure controlled No adverse events reported to me by nursing staff Hospitalist Physical - Physical exam Narrative exam: VITAL SIGNS: Reviewed. GENERAL: The patient appeared well nourished and normally developed, obese. Vital signs as documented. HEAD: No signs of head trauma. EYES: Pupils are equal. Extraocular motions intact. EARS: Hearing grossly intact. MOUTH: Oropharynx is normal. NECK: No adenopathy, no JVD. CHEST: Chest with clear breath sounds bilaterally. No wheezes, rales, or rhonchi. CARDIAC: Regular rate and rhythm. S1 and S2, without murmurs, gallops, or rubs. VASCULAR: No Edema. Peripheral pulses normal and equal in all extremities. ABDOMEN: Soft, without detectable tenderness. No sign of distention. No rebound or guarding, and no masses palpated. Bowel Sounds normal. MUSCULOSKELETAL: Good range of motion of all major joints. Extremities without clubbing, cyanosis or edema. NEUROLOGIC EXAM: Alert and oriented x 3. No focal sensory or strength deficits. Speech normal. Follows commands. PSYCHIATRIC: Mood emotional SKIN: No rash or lesions. - Constitutional Vitals: Temp Pulse Resp BP Pulse Ox 98.7 F 94 H 19 110/80 99 05/09/16 13:03 05/09/16 13:18 05/09/16 13:18 05/09/16 13:18 05/09/16 13:18 General appearance: Present: no acute distress, obese Results - Labs CBC & Chem 7: 05/09/16 06:00 05/09/16 06:00 Labs: Laboratory Last Values WBC 17.6 K/mm3 (4.5-11.0) H 05/09/16 06:00 RBC 4.83 M/mm3 (3.65-5.03) 05/09/16 06:00 Hgb 7.9 gm/dl (10.1-14.3) L 05/09/16 06:00 Hct 27.5 % (30.3-42.9) L 05/09/16 06:00 MCV 57 fl (79-97) L 05/09/16 06:00 MCH 16 pg (28-32) L 05/09/16 06:00 MCHC 29 % (30-34) L 05/09/16 06:00 RDW 24.2 % (13.2-15.2) H 05/09/16 06:00 Plt Count 307 K/mm3 (140-440) 05/09/16 06:00 Lymph % (Auto) 8.0 % (13.4-35.0) L 05/06/16 13:01 Carbon % (Auto) 6.2 % (0.0-7.3) 05/06/16 13:01 Eos % (Auto) 0.2 % (0.0-4.3) 05/06/16 13:01 Baso % (Auto) 0.8 % (0.0-1.8) 05/06/16 13:01 Lymph # 1.3 K/mm3 (1.2-5.4) 05/06/16 13:01 Carbon # 1.0 K/mm3 (0.0-0.8) H 05/06/16 13:01 Eos # 0.0 K/mm3 (0.0-0.4) 05/06/16 13:01 Baso # 0.1 K/mm3 (0.0-0.1) 05/06/16 13:01 Seg Neutrophils % 84.8 % (40.0-70.0) H 05/06/16 13:01 Seg Neutrophils # 13.6 K/mm3 (1.8-7.7) H 05/06/16 13:01 PT 17.3 Sec. (12.2-14.9) H 05/09/16 15:37 INR 1.42 (0.87-1.13) H 05/09/16 15:37 APTT 24.0 Sec. (24.2-36.6) L 05/06/16 13:50 Heparin Anti-Xa Level < 0.10 U.I./ml (0.3-0.7) L 05/09/16 15:37 Sodium 137 mmol/L (137-145) 05/09/16 06:00 Potassium 3.5 mmol/L (3.6-5.0) L 05/09/16 06:00 Chloride 98.9 mmol/L (98-107) 05/09/16 06:00 Carbon Dioxide 23 mmol/L (22-30) 05/09/16 06:00 Anion Gap 19 mmol/L 05/09/16 06:00 BUN 7 mg/dL (7-17) 05/09/16 06:00 Creatinine 0.8 mg/dL (0.7-1.2) 05/09/16 06:00 Estimated GFR > 60 ml/min 05/09/16 06:00 BUN/Creatinine Ratio 8.75 % 05/09/16 06:00 Glucose 104 mg/dL (65-100) H 05/09/16 06:00 Calcium 8.7 mg/dL (8.4-10.2) 05/09/16 06:00 Troponin T < 0.010 ng/mL (0.00-0.029) 05/06/16 22:49 TSH 9.370 mlU/mL (0.270-4.200) H 05/07/16 07:50 Free T4 0.85 ng/dL (0.76-1.46) 05/07/16 07:50
[2016-05-09] MEDS ORDERED: HEPARIN 10,000 UNITS/10 ML IV ONE (17:00)
[2016-05-09] MEDS ORDERED: LEVAQUIN 750MG/150ML 750 MG/150 ML BAG IV SCH (18:00)
[2016-05-09] MEDS: DILAUDID IV PRN (23:15)
[2016-05-09] MEDS: ZITHROMAX 500 MG in NACL 0.9% 250ML 250 ML IV SCH (23:15)
[2016-05-10] MEDS: HEPARIN/ 0.45% NACL-25,000 UNIT/500 ML 25,000 UNITS/500 ML BAG IV SCH (04:00)
[2016-05-10 06:01] LABS: Hematocrit 26.3 % (30.3-42.9); Hemoglobin 7.6 gm/dl (10.1-14.3)
[2016-05-10] MEDS: PROTONIX IV SCH (09:07)
[2016-05-10] MEDS: CARDIZEM CD PO SCH (09:08)
[2016-05-10] MEDS: LOPRESSOR PO SCH (09:12)
[2016-05-10] MEDS ORDERED: NACL 0.9% 500 ML 500 ML IV ONE (10:00)
--- NOTE | 2016-05-10 10:33 | Discharge Summary ---
Providers - Providers Date of Admission: 05/06/16 15:09 Date of discharge: 05/10/16 Attending physician: ALEJANDRO ARROYO MD 05/07/16 07:14 Consult to Physician [CONS] Routine Consulting Provider: KINGSLEY THOMPSON Reason For Exam: Afib with rvr Place consult to:: [facility] Notified:: [place] Was contact made?: Yes Time called:: 09:42 05/08/16 10:34 Consult to Physician [CONS] Routine Consulting Provider: JASVIR LOPEZ Reason For Exam: anemia ?GI bleed Place consult to:: gi Notified:: office Phone number called:: [phone] Was contact made?: Yes Time called:: 11:16 Primary care physician: [employer] Hospitalization Reason for admission: A. fib with RVR, chest pain Condition: Stable Hospital course: The patient is a 60 year old female with a history of hypertension, atrial fibrillation recently discharged from the hospital after she was treated for A. fib with pleuritic chest pain. Patient returns with complaint of chest tightness which she states starts after she feels anxious. She substernal for further intensity and now resolved. He was also noted to have palpitation on presentation was noted to be in A. fib with RVR which is back to sinus rhythm at this time. She reports not taking Xarelto due to the expense and again now willing to take Coumadin. During her last hospitalization she stated She normally receives care at [facility]. Echocardiogram revealed mild LVH, EF 45-50% and impaired relaxation. Digoxin was discontinued. Cardiology recommended continuation of Cardizem 60 mg every 6 hours and metoprolol 25 mg twice a day. Cardiology also recommended long-term anticoagulation for a CHADS-VASC =2. The patient during this hospitalization was recommended to start on Coumadin and the risk of not anticoagulation was discussed with the patient in detail she verbalizes understanding this risk includes but not limited to stroke and . She was also noted to be anemic although she refused I transfusion at this time. She has refused taking iron pills in the past. I asked that she doesn't take them. She did have a panendoscopy which showed Small polyps with mild left colon diverticulosis noted. On the polyp appeared benign. Recommendation to repeat endoscopy in 5 years. There is also a recommendation to follow up with GI in the clinic for capsule endoscopy to rule out small bowel bleed. This was explained to the patient. Throughout hospitalization I did speak to the patient in detail and also to the family it is my professional believe that this patient is undergoing depression due to significant stressors in her life outside of this hospital. She denies any suicidal or homicidal ideation but it appears that his depression is debilitated. I have recommended to obtain psychiatric evaluation here in the hospital but she declined she would rather follow-up with them outpatient. Again she declined transfusion but understands the need to follow up with the [facility] for repeat studies and possible transfusion at that time if needed. Unfortunately she poses a risk for recurrent admission due to anxiety and depression and recurrent chest pain with associated anemia. She also was noted to have subclinical hypothyroidism her T for free study was negative. She is clinically stable and this time for discharge. Her new medications and discussed in detail with her. She is in sinus rhythm. We did discuss weight loss management with the patient and also possible viral pneumonitis for which she was treated with antibiotics. She is also to have a repeat study to ensure resolution of leukocytosis. I have also strongly recommended an oncologist evaluation to look of this persistent leukocytosis. Standard Discharge diagnosis * Atrial fibrillation with RVR * Atypical chest pain-resolved could be secondary to anxiety * Hypothyroid * Obesity * Leukocytosis * Precipitous drop in hemoglobin * Iron deficiency anemia * Possible pneumonitis * Anxiety Disposition: DISCHARGED TO HOME OR SELFCARE Time spent for discharge: 35 mins Core Measure Documentation - Palliative Care Palliative Care/ Comfort Measures: Not Applicable - Core Measures Any of the following diagnoses?: none - VTE Discharge Requirements Deep Vein Thrombosis/Pulmonary Embolism Present on Admission: No Exam - Physical Exam Narrative exam: VITAL SIGNS: Reviewed. GENERAL: The patient appeared well nourished and normally developed, obese. Vital signs as documented. HEAD: No signs of head trauma. EYES: Pupils are equal. Extraocular motions intact. EARS: Hearing grossly intact. MOUTH: Oropharynx is normal. NECK: No adenopathy, no JVD. CHEST: Chest with clear breath sounds bilaterally. No wheezes, rales, or rhonchi. CARDIAC: Regular rate and rhythm. S1 and S2, without murmurs, gallops, or rubs. VASCULAR: No Edema. Peripheral pulses normal and equal in all extremities. ABDOMEN: Soft, without detectable tenderness. No sign of distention. No rebound or guarding, and no masses palpated. Bowel Sounds normal. MUSCULOSKELETAL: Good range of motion of all major joints. Extremities without clubbing, cyanosis or edema. NEUROLOGIC EXAM: Alert and oriented x 3. No focal sensory or strength deficits. Speech normal. Follows commands. PSYCHIATRIC: Mood emotional SKIN: No rash or lesions. - Constitutional Vitals: Temp Pulse Resp BP Pulse Ox 98.1 F 76 20 106/62 96 05/10/16 07:02 05/10/16 09:08 05/10/16 07:02 05/10/16 09:08 05/10/16 07:02 Plan Activity: advance as tolerated, fall precautions Diet: low fat Special Instructions: record daily weights, record daily BP diary Additional Instructions: follow at [facility]. PCP to arrange for Pyschiatrist eval for Depression. Repeat hemoglobin and hematocrit in 3-4 days Follow up with: PRIMARY CARE, [Primary Care Provider] - 3-5 Days SAUD THOMPSON MD [Staff Physician] - 7 Days Forms: Warfarin Discharge Instruction Prescriptions: ALPRAZolam [Xanax TAB] 0.25 mg PO Q8H PRN #30 tablet PRN Reason: Anxiety Diltiazem Cd [Cardizem CD] 300 mg PO QDAY #30 capsule Levofloxacin [Levaquin] 750 mg PO QDAY #5 tablet Metoprolol [Lopressor TAB] 50 mg PO BID #60 tablet Metoprolol [Lopressor TAB] 50 mg PO BID #60 tablet Warfarin [Coumadin] 5 mg PO QDAY #30 tablet
[2016-05-10] MEDS ORDERED: PNEUMOVAX 23 IM ONE (12:00)
[2016-05-10 12:08] VITALS: BP 124/62
== END 2016-05-10 13:00 | disposition home or self-care (01) | DRG 880 ==
LOC: ED 12:03 → 4A 15:09
PROVIDERS: ADMIT Internal Medicine; ATTEND Internal Medicine
PROC: 3E0234Z Introduction of Serum, Toxoid and Vaccine into Muscle, Percutaneous Approach (ICD-10-PCS; 2016-05-08)
PROC: 0DB78ZX Excision of Stomach, Pylorus, Via Natural or Artificial Opening Endoscopic, Diagnostic (ICD-10-PCS; principal; 2016-05-09)
PROC: 0DBK8ZZ Excision of Ascending Colon, Via Natural or Artificial Opening Endoscopic (ICD-10-PCS; 2016-05-09)
DX: F41.9 Anxiety disorder, unspecified (principal); J18.9 Pneumonia, unspecified organism; I48.91 Unspecified atrial fibrillation; E03.9 Hypothyroidism, unspecified; I10 Essential (primary) hypertension; E66.9 Obesity, unspecified; F32.9 Major depressive disorder, single episode, unspecified; D72.829 Elevated white blood cell count, unspecified; Z68.39 Body mass index [BMI] 39.0-39.9, adult; D50.9 Iron deficiency anemia, unspecified; K29.60 Other gastritis without bleeding; K57.30 Diverticulosis of large intestine without perforation or abscess without bleeding; D12.2 Benign neoplasm of ascending colon; Z88.0 Allergy status to penicillin; Z79.01 Long term (current) use of anticoagulants; Z98.51 Tubal ligation status; Z91.14 Patient's other noncompliance with medication regimen; Z82.49 Family history of ischemic heart disease and other diseases of the circulatory system; Z23 Encounter for immunization
CPT/HCPCS: 36415; 71010; 80048; 84439; 84443; 84484; 85014; 85018; 85025; 85027; 85049; 85520; 85610; 85730; 88305; 88342; 90686; 90732; 93005; 93010; 96374; 96375; 96376; C9113; J0456; J1170; J1644; J1956; J2405; J2704; J7030; J7040; J7050

== ENCOUNTER 2016-05-17 14:27 | Inpatient (IN) | payer SELFPAY ==
[2016-05-17] MEDS ORDERED: CORDARONE 150 MG in D5W 100 ML IV ONE (15:13)
[2016-05-17 15:41] LABS: Anion Gap 19 mmol/L; Blood Urea Nitrogen 11 mg/dL (7-17); Calcium 9.1 mg/dL (8.4-10.2); Carbon Dioxide 23 mmol/L (22-30); Chloride 101.8 mmol/L (98-107); Glucose 145 mg/dL (65-100); Potassium 3.9 mmol/L (3.6-5.0); Sodium 140 mmol/L (137-145)
[2016-05-17 15:48] LABS: Mean Corpuscular HGB Conc 30 % (30-34); Platelet Count 569 K/mm3 (140-440); Red Blood Count 5.01 M/mm3 (3.65-5.03); White Blood Count 18.9 K/mm3 (4.5-11.0)
[2016-05-17 15:58] LABS: INR 1.33 (0.87-1.13); Partial Thromboplastin Time 33.9 Sec. (24.2-36.6)
[2016-05-17 16:17] LABS: Hemoglobin 8.3 gm/dl (10.1-14.3); Mean Corpuscular Hemoglobin 17 pg (28-32); Mean Corpuscular Volume 56 fl (79-97); Red Cell Distribution Width 23.9 % (13.2-15.2)
[2016-05-17] MEDS ORDERED: MORPHINE IV ONE (16:37)
[2016-05-17] MEDS ORDERED: ZOFRAN IV ONE (16:37)
[2016-05-17] MEDS: CORDARONE 900 MG in D5W 482 ML IV SCH (17:48)
--- NOTE | 2016-05-17 17:48 | Emergency Department Report ---
HPI - General Chief Complaint: Chest Pain Time Seen by Provider: 05/17/16 15:12 - HPI HPI: Chief complaint: Chest pain and rapid heartbeat HPI: Patient is 60-year-old female with a history of atrial fibrillation who was seen here several weeks ago and sent home on Cardizem, metoprolol and Coumadin. Patient states she has not been taking the Coumadin because she does not have anywhere to have her INR checked. Patient has been having migratory pain that went from the left flank to the right flank to the left shoulder is now substernal. Patient's only description is that it is a pain. It does hurt worse with inspiration. No fever or cough. Mode of arrival: private car Source: Patient Began: Pain began approximately a week ago Duration: Intermittent Context: See above Quality: See above Severity: 8 out of 10 Improved with: Nothing Worsened with: Inspiration Associated signs and symptoms: No fever, nausea, vomiting ED Past Medical Hx - Past Medical History Previous Medical History?: Yes Hx Hypertension: Yes Additional medical history: ATRIAL FIB. PNEUMONIA - Surgical History Past Surgical History?: Yes Additional Surgical History: TUBAL LIGATION - Social History Smoking Status: Former Smoker Substance Use Type: Prescribed - Medications Home Medications: Home Medications Medication Instructions Recorded Confirmed Last Taken Type ALPRAZolam [Xanax TAB] 0.25 mg PO Q8H PRN #30 tablet 05/10/16 Unknown Rx Diltiazem Cd [Cardizem CD] 300 mg PO QDAY #30 capsule 05/10/16 Unknown Rx Levofloxacin [Levaquin] 750 mg PO QDAY #5 tablet 05/10/16 Unknown Rx Metoprolol [Lopressor TAB] 50 mg PO BID #60 tablet 05/10/16 Unknown Rx Metoprolol [Lopressor TAB] 50 mg PO BID #60 tablet 05/10/16 Unknown Rx Warfarin [Coumadin] 5 mg PO QDAY #30 tablet 05/11/16 Unknown Rx ED Review of Systems ROS: Stated complaint: CHEST PAIN Other details as noted in HPI ROS Constitutional: No fever ENT: No uri symptoms Cardiovascular: chest pain Respiratory: No sob or cough GI: No nausea vomiting or diarrhea : No dysuria frequency or urgency, Skin: No rash Neuro: No focal weakness or numbness Psych: No depression Ric/lymph: No edema Physical Exam - Physical Exam Vital Signs: Vital Signs 0305/17/16 05/17/16 14:47 15:02 15:03 Temperature 99.3 F Pulse Rate 72 154 H 135 H Respiratory 20 21 26 H Rate Blood Pressure 121/67 108/86 O2 Sat by Pulse 100 97 98 Oximetry 05/17/16 05/17/16 05/17/16 15:04 15:11 17:00 Temperature Pulse Rate 158 H Respiratory 34 H 22 20 Rate Blood Pressure 108/86 O2 Sat by Pulse 97 96 Oximetry Physical Exam: GENERAL: The patient is well-developed well-nourished. HEENT: Normocephalic. Atraumatic. Extraocular motions are intact. Patient has moist mucous membranes. NECK: Supple. No meningitic signs are noted. There is no adenopathy noted. CHEST/LUNGS: Clear to auscultation. There is no respiratory distress noted. HEART/CARDIOVASCULAR: Irregular There is tachycardia. ABDOMEN: Abdomen is soft, nontender. Patient has normal bowel sounds. There is no abdominal distention. SKIN: There is no rash. There is no edema. There is no diaphoresis. NEURO: The patient is awake, alert, and oriented. The patient is cooperative. The patient has no focal neurologic deficits. The patient has normal speech. MUSCULOSKELETAL: There is no tenderness or deformity. There is no limitation range of motion. There is no evidence of acute injury. ED Course Vital Signs 05/17/16 05/17/16 05/17/16 14:47 15:02 15:03 Temperature 99.3 F Pulse Rate 72 154 H 135 H Respiratory 20 21 26 H Rate Blood Pressure 121/67 108/86 O2 Sat by Pulse 100 97 98 Oximetry 05/17/16 05/17/16 05/17/16 15:04 15:11 17:00 Temperature Pulse Rate 158 H Respiratory 34 H 22 20 Rate Blood Pressure 108/86 O2 Sat by Pulse 97 96 Oximetry - Reevaluation(s) Reevaluation #1: 05/17/16 Patient started on amiodarone will be admitted to the hospitalist. ED Medical Decision Making - Lab Data Result diagrams: 05/17/16 15:10 05/17/16 15:10 Laboratory Tests 05/17/16 05/17/16 15:10 15:10 PT 16.4 H INR 1.33 H APTT 33.9 Troponin T < 0.010 - EKG Data -: EKG Interpreted by Me (atrial fibrillation with rapid ventricular response) Rate: tachycardia (145) - EKG Data When compared to previous EKG there are: no significant change - Radiology Data interpreted by me: Chest x-ray shows cardiomegaly and bibasilar atelectasis questionable early CHF Critical care attestation.: If time is entered above; I have spent that time in minutes in the direct care of this critically ill patient, excluding procedure time. ED Disposition Clinical Impression: Atrial fibrillation with RVR, Chest pain Disposition: OP ADMITTED IP TO THIS HOSP Is pt being admited?: Yes Does the pt Need Aspirin: Yes Condition: Fair Instructions: Chest Pain (ED) Time of Disposition: 16:00 (admit to the hospitalist)
[2016-05-17] MEDS ORDERED: ASPIRIN PO ONE (18:01)
--- NOTE | 2016-05-17 18:36 | History and Physical Report ---
History of Present Illness Date of examination: 05/17/16 Date of admission: 05/17/16 18:11 History of present illness: Patient is 60-year-old female with a history of atrial fibrillation who was seen here several weeks ago and sent home on Cardizem, metoprolol and Coumadin. Patient states she has not been taking the Coumadin because she does not have anywhere to have her INR checked. Patient has been having migratory pain that went from the left flank to the right flank to the left shoulder is now substernal. Patient's only description is that it is a pain. It does hurt worse with inspiration. No fever or cough. Past History Past Medical History: atrial fib, hypertension, other (anxiety) Medications and Allergies Allergies Allergy/AdvReac Type Severity Reaction Status Date / Time Penicillins Allergy Severe Anaphylaxis Verified 05/07/16 18:34 Home Medications Medication Instructions Recorded Confirmed Last Taken Type ALPRAZolam [Xanax TAB] 0.25 mg PO Q8H PRN #30 tablet 05/10/16 Unknown Rx Diltiazem Cd [Cardizem CD] 300 mg PO QDAY #30 capsule 05/10/16 Unknown Rx Levofloxacin [Levaquin] 750 mg PO QDAY #5 tablet 05/10/16 Unknown Rx Metoprolol [Lopressor TAB] 50 mg PO BID #60 tablet 05/10/16 Unknown Rx Metoprolol [Lopressor TAB] 50 mg PO BID #60 tablet 05/10/16 Unknown Rx Warfarin [Coumadin] 5 mg PO QDAY #30 tablet 05/11/16 Unknown Rx Active Meds: Active Medications Amiodarone HCl 900 mg/ (Dextrose) 500 mls @ 33.33 mls/hr IV DIRECT BLUE; 1 MG /MIN PRN Reason: Protocol Last Admin: 05/17/16 17:48 Dose: 1 mg/min, 33.33 mls/hr Review of Systems Cardiovascular: palpitations Exam - Constitutional Vitals: Temp Pulse Resp BP Pulse Ox 99.3 F 158 H 20 108/86 96 05/17/16 14:47 05/17/16 15:04 05/17/16 17:00 05/17/16 15:04 05/17/16 15:11 General appearance: Present: no acute distress - EENT Eyes: Present: PERRL, EOM intact ENT: hearing intact, clear oral mucosa - Neck Neck: Present: supple, normal ROM - Respiratory Respiratory effort: normal Respiratory: bilateral: CTA - Cardiovascular Rhythm: irregularly irregular - Extremities Extremities: no ischemia, No edema - Abdominal General gastrointestinal: Present: soft, non-tender, non-distended, normal bowel sounds - Musculoskeletal Musculoskeletal: strength equal bilaterally - Psychiatric Psychiatric: appropriate mood/affect, intact judgment & insight - Neurologic Neurologic: CNII-XII intact, moves all extremities Results - Labs CBC & Chem 7: 05/17/16 15:10 05/17/16 15:10 Labs: Laboratory Last Values WBC 18.9 K/mm3 (4.5-11.0) H 05/17/16 15:10 RBC 5.01 M/mm3 (3.65-5.03) 05/17/16 15:10 Hgb 8.3 gm/dl (10.1-14.3) L 05/17/16 15:10 Hct 28.0 % (30.3-42.9) L 05/17/16 15:10 MCV 56 fl (79-97) L 05/17/16 15:10 MCH 17 pg (28-32) L 05/17/16 15:10 MCHC 30 % (30-34) 05/17/16 15:10 RDW 23.9 % (13.2-15.2) H 05/17/16 15:10 Plt Count 569 K/mm3 (140-440) H 05/17/16 15:10 PT 16.4 Sec. (12.2-14.9) H 05/17/16 15:10 INR 1.33 (0.87-1.13) H 05/17/16 15:10 APTT 33.9 Sec. (24.2-36.6) 05/17/16 15:10 Sodium 140 mmol/L (137-145) 05/17/16 15:10 Potassium 3.9 mmol/L (3.6-5.0) 05/17/16 15:10 Chloride 101.8 mmol/L (98-107) 05/17/16 15:10 Carbon Dioxide 23 mmol/L (22-30) 05/17/16 15:10 Anion Gap 19 mmol/L 05/17/16 15:10 BUN 11 mg/dL (7-17) 05/17/16 15:10 Creatinine 1.0 mg/dL (0.7-1.2) 05/17/16 15:10 Estimated GFR > 60 ml/min 05/17/16 15:10 BUN/Creatinine Ratio 11.00 % 05/17/16 15:10 Glucose 145 mg/dL (65-100) H 05/17/16 15:10 Calcium 9.1 mg/dL (8.4-10.2) 05/17/16 15:10 Troponin T < 0.010 ng/mL (0.00-0.029) 05/17/16 17:39 Assessment and Plan - Patient Problems (1) Atrial fibrillation with RVR Current Visit: Yes Status: Acute Plan to address problem: Patient will be admitted to telemetry. Patient was started on amiodarone drip per ER doctor. We will get cardiology consult. We'll follow thyroid function test. (2) Chest pain Current Visit: Yes Status: Acute Qualifiers: Chest pain type: C Plan to address problem: First 2 sets of troponins are negative. We'll get 2-D echo and cardiology consult
[2016-05-17] MEDS ORDERED: CARDIZEM CD PO SCH (19:00)
[2016-05-17] MEDS ORDERED: NACL 0.9% 1000 ML 1,000 ML IV SCH (19:00)
[2016-05-17 19:28] LABS: Basophils % (Manual) 0 % (0.0-1.8); Blastocytes % (Manual) 0 %; Eosinophils % (Manual) 0 % (0.0-4.3)
[2016-05-17 19:29] LABS: Anisocytosis 1+; Diff Status Complete; Platelet Estimate Consistent w Auto
[2016-05-17] MEDS: COUMADIN PO SCH (21:00)
[2016-05-17] MEDS ORDERED: LEVAQUIN 500MG/100ML 500 MG/100 ML BAG IV SCH (21:00)
[2016-05-17] MEDS ORDERED: LOPRESSOR PO SCH (22:00)
[2016-05-17] MEDS ORDERED: MORPHINE IV PRN (22:37)
[2016-05-17] MEDS: LOPRESSOR PO SCH (22:48)
[2016-05-17] MEDS: MORPHINE IV PRN (22:51)
[2016-05-18] MEDS: MORPHINE IV PRN ×2 (04:15→09:41)
[2016-05-18 07:29] LABS: INR 1.39 (0.87-1.13)
[2016-05-18 07:37] LABS: Basophils % (Auto) 0.6 % (0.0-1.8); Eosinophils % (Auto) 0.5 % (0.0-4.3); Hemoglobin 7.2 gm/dl (10.1-14.3)
[2016-05-18 07:39] LABS: Alanine Aminotransferase 16 units/L (7-56); Albumin 3.1 g/dL (3.9-5); Alkaline Phosphatase 80 units/L (35-129); Anion Gap 19 mmol/L; Bilirubin,Total 0.6 mg/dL (0.1-1.2); Blood Urea Nitrogen 10 mg/dL (7-17); Calcium 8.8 mg/dL (8.4-10.2); Carbon Dioxide 23 mmol/L (22-30); Chloride 100.1 mmol/L (98-107); Glucose 104 mg/dL (65-100); Potassium 3.9 mmol/L (3.6-5.0); Sodium 138 mmol/L (137-145); Total Protein 6.3 g/dL (6.3-8.2)
[2016-05-18 07:42] LABS: Mean Corpuscular HGB Conc 28 % (30-34); Platelet Count 446 K/mm3 (140-440); Red Blood Count 4.62 M/mm3 (3.65-5.03)
[2016-05-18 07:43] LABS: Hematocrit 26.2 % (30.3-42.9); Mean Corpuscular Hemoglobin 16 pg (28-32); Mean Corpuscular Volume 57 fl (79-97); Red Cell Distribution Width 23.5 % (13.2-15.2)
[2016-05-18] MEDS: LOPRESSOR PO SCH ×2 (09:43→21:30)
--- NOTE | 2016-05-18 10:15 | XRay Report ---
AP CHEST: HISTORY: Chest pain Mild cardiomegaly, mild vascular congestion and small pleural effusions have developed since 05/06/16. No evidence for pneumonia or pneumothorax. The bony thorax is intact. IMPRESSION: Mild CHF.
--- NOTE | 2016-05-18 10:31 | Progress Note ---
Assessment and Plan Assessment and plan: 60F who self stopped coumadin because she had no place to fup INR, who presented with CP 1. Chest pain serial trops neg, fup cardiology consult 2. Afib with RVR continue AVN blocking agents, continue amiodarone drip, warfarin has been restarted 3. Anemia, microcytic anemia spoke to Dr Johnson of GI Has had recent endoscopy and colonoscopy which were negative, as per patient and her sister she has very poor nutrition- anemia is most likely due to poor dietary intake of iron, iron supplements were started 4. CHF fup echo, optimize meds, already on BB, add ACEI -rx with IV lasix History Interval history: she denies bloody stool or tarry stool, chest pain and palpitations are improved Hospitalist Physical - Physical exam Narrative exam: General: Patient appears well in no distress HEENT: MMM, EOMI cardiac: S1-S2 heard lungs: clear to auscultation, abdomen: soft, nontender, nondistended bowel sounds positive extremities: no edema clubbing or cyanosis Skin: no rash or lesion Neuro: no focal deficit Psych: appropriate behavior and mood, cognition intact - Constitutional Vitals: Temp Pulse Resp BP Pulse Ox 97.5 F L 86 20 120/80 97 05/18/16 08:00 05/18/16 08:00 05/18/16 08:00 05/18/16 08:00 05/18/16 08:00 General appearance: Present: no acute distress Results - Labs CBC & Chem 7: 05/20/16 05:43 05/18/16 06:25 Labs: Laboratory Last Values WBC 18.0 K/mm3 (4.5-11.0) H 05/18/16 06:25 RBC 4.62 M/mm3 (3.65-5.03) 05/18/16 06:25 Hgb 7.2 gm/dl (10.1-14.3) L 05/18/16 06:25 Hct 26.2 % (30.3-42.9) L 05/18/16 06:25 MCV 57 fl (79-97) L 05/18/16 06:25 MCH 16 pg (28-32) L 05/18/16 06:25 MCHC 28 % (30-34) L 05/18/16 06:25 RDW 23.5 % (13.2-15.2) H 05/18/16 06:25 Plt Count 446 K/mm3 (140-440) H 05/18/16 06:25 Lymph % (Auto) 10.0 % (13.4-35.0) L 05/18/16 06:25 [place] % (Auto) 10.0 % (0.0-7.3) H 05/18/16 06:25 Eos % (Auto) 0.5 % (0.0-4.3) 05/18/16 06:25 Baso % (Auto) 0.6 % (0.0-1.8) 05/18/16 06:25 Lymph # 1.8 K/mm3 (1.2-5.4) 05/18/16 06:25 [place] # 1.8 K/mm3 (0.0-0.8) H 05/18/16 06:25 Eos # 0.1 K/mm3 (0.0-0.4) 05/18/16 06:25 Baso # 0.1 K/mm3 (0.0-0.1) 05/18/16 06:25 Add Manual Diff Complete 05/17/16 15:10 Total Counted 100 05/17/16 15:10 Seg Neutrophils % 78.9 % (40.0-70.0) H 05/18/16 06:25 Seg Neuts % (Manual) 91.0 % (40.0-70.0) H 05/17/16 15:10 Band Neutrophils % 0 % 05/17/16 15:10 Lymphocytes % (Manual) 6.0 % (13.4-35.0) L 05/17/16 15:10 Reactive Lymphs % (Man) 0 % 05/17/16 15:10 Monocytes % (Manual) 3.0 % (0.0-7.3) 05/17/16 15:10 Eosinophils % (Manual) 0 % (0.0-4.3) 05/17/16 15:10 Basophils % (Manual) 0 % (0.0-1.8) 05/17/16 15:10 Metamyelocytes % 0 % 05/17/16 15:10 Myelocytes % 0 % 05/17/16 15:10 Promyelocytes % 0 % 05/17/16 15:10 Blast Cells % 0 % 05/17/16 15:10 Nucleated RBC % Not Reportable 05/17/16 15:10 Seg Neutrophils # 14.2 K/mm3 (1.8-7.7) H 05/18/16 06:25 Seg Neutrophils # Man 17.2 K/mm3 (1.8-7.7) H 05/17/16 15:10 Band Neutrophils # 0.0 K/mm3 05/17/16 15:10 Lymphocytes # (Manual) 1.1 K/mm3 (1.2-5.4) L 05/17/16 15:10 Abs React Lymphs (Man) 0.0 K/mm3 05/17/16 15:10 Monocytes # (Manual) 0.6 K/mm3 (0.0-0.8) 05/17/16 15:10 Eosinophils # (Manual) 0.0 K/mm3 (0.0-0.4) 05/17/16 15:10 Basophils # (Manual) 0.0 K/mm3 (0.0-0.1) 05/17/16 15:10 Metamyelocytes # 0.0 K/mm3 05/17/16 15:10 Myelocytes # 0.0 K/mm3 05/17/16 15:10 Promyelocytes # 0.0 K/mm3 05/17/16 15:10 Blast Cells # 0.0 K/mm3 05/17/16 15:10 WBC Morphology Not Reportable 05/17/16 15:10 Hypersegmented Neuts Not Reportable 05/17/16 15:10 Hyposegmented Neuts Not Reportable 05/17/16 15:10 Hypogranular Neuts Not Reportable 05/17/16 15:10 Smudge Cells Not Reportable 05/17/16 15:10 Toxic Granulation Not Reportable 05/17/16 15:10 Toxic Vacuolation Not Reportable 05/17/16 15:10 Dohle Bodies Not Reportable 05/17/16 15:10 Pelger-Huet Anomaly Not Reportable 05/17/16 15:10 Ankit Rods Not Reportable 05/17/16 15:10 Platelet Estimate Consistent w auto 05/17/16 15:10 Clumped Platelets Not Reportable 05/17/16 15:10 Plt Clumps, EDTA Not Reportable 05/17/16 15:10 Large Platelets Not Reportable 05/17/16 15:10 Giant Platelets Not Reportable 05/17/16 15:10 Platelet Satelliting Not Reportable 05/17/16 15:10 Plt Morphology Comment Not Reportable 05/17/16 15:10 RBC Morphology Not Reportable 05/17/16 15:10 Dimorphic RBCs Not Reportable 05/17/16 15:10 Polychromasia Not Reportable 05/17/16 15:10 Hypochromasia Not Reportable 05/17/16 15:10 Poikilocytosis Not Reportable 05/17/16 15:10 Anisocytosis 1+ 05/17/16 15:10 Microcytosis Not Reportable 05/17/16 15:10 Macrocytosis Not Reportable 05/17/16 15:10 Spherocytes Not Reportable 05/17/16 15:10 Pappenheimer Bodies Not Reportable 05/17/16 15:10 Sickle Cells Not Reportable 05/17/16 15:10 Target Cells Not Reportable 05/17/16 15:10 Tear Drop Cells Not Reportable 05/17/16 15:10 Ovalocytes Not Reportable 05/17/16 15:10 Helmet Cells Not Reportable 05/17/16 15:10 [place] Bodies Not Reportable 05/17/16 15:10 [place] Rings Not Reportable 05/17/16 15:10 [place] Cells Not Reportable 05/17/16 15:10 Bite Cells Not Reportable 05/17/16 15:10 Crenated Cell Not Reportable 05/17/16 15:10 Elliptocytes Not Reportable 05/17/16 15:10 Acanthocytes (Spur) Not Reportable 05/17/16 15:10 Rouleaux Not Reportable 05/17/16 15:10 Hemoglobin C Crystals Not Reportable 05/17/16 15:10 Schistocytes Not Reportable 05/17/16 15:10 Malaria parasites Not Reportable 05/17/16 15:10 [place] Bodies Not Reportable 05/17/16 15:10 Hem Pathologist Commnt No 05/17/16 15:10 PT 17.0 Sec. (12.2-14.9) H 05/18/16 06:25 INR 1.39 (0.87-1.13) H 05/18/16 06:25 APTT 33.9 Sec. (24.2-36.6) 05/17/16 15:10 Sodium 138 mmol/L (137-145) 05/18/16 06:25 Potassium 3.9 mmol/L (3.6-5.0) 05/18/16 06:25 Chloride 100.1 mmol/L (98-107) 05/18/16 06:25 Carbon Dioxide 23 mmol/L (22-30) 05/18/16 06:25 Anion Gap 19 mmol/L 05/18/16 06:25 BUN 10 mg/dL (7-17) 05/18/16 06:25 Creatinine 0.8 mg/dL (0.7-1.2) 05/18/16 06:25 Estimated GFR > 60 ml/min 05/18/16 06:25 BUN/Creatinine Ratio 12.50 % 05/18/16 06:25 Glucose 104 mg/dL (65-100) H 05/18/16 06:25 Calcium 8.8 mg/dL (8.4-10.2) 05/18/16 06:25 Total Bilirubin 0.6 mg/dL (0.1-1.2) 05/18/16 06:25 AST 14 units/L (5-40) 05/18/16 06:25 ALT 16 units/L (7-56) 05/18/16 06:25 Alkaline Phosphatase 80 units/L (35-129) 05/18/16 06:25 Troponin T < 0.010 ng/mL (0.00-0.029) 05/17/16 21:40 Total Protein 6.3 g/dL (6.3-8.2) 05/18/16 06:25 Albumin 3.1 g/dL (3.9-5) L 05/18/16 06:25 Albumin/Globulin Ratio 1.0 % 05/18/16 06:25
--- NOTE | 2016-05-18 10:44 | Event Note ---
Date: 05/18/16 Patient of [facility], seen by Dr He on last admission 05/07/2016. Please refer to their service for continued care. Remove from my consult list.
[2016-05-18] MEDS ORDERED: NACL 0.9% 500 ML 500 ML IV NR (11:00)
--- NOTE | 2016-05-18 13:54 | Event Note ---
Patient is known to us. Orders reviewed. Will make shared decision regarding watermelon inspector oral anticoagulation to [place].Agree with present Rx plans. Full consult note to follow. .
[2016-05-18] MEDS: XANAX PO PRN (13:57)
[2016-05-18] MEDS: CORDARONE 900 MG in D5W 482 ML IV SCH (15:05)
[2016-05-18] MEDS: LASIX IV SCH (18:22)
[2016-05-18] MEDS: COUMADIN PO SCH (18:22)
--- NOTE | 2016-05-18 19:17 | Event Note ---
Date: 05/18/16 Pt was seen in Consult for iron def anemia on 05/08/16, and underwent EGD/Colon on 05/09/16 that were unrevealing. Recommendation had been for outpatient Pillcam evaluation. Discussed with Dr. Wells, who cancelled consult. Please call as needed.
[2016-05-19] MEDS: MORPHINE IV PRN ×3 (01:32→14:08)
[2016-05-19 05:39] LABS: INR 1.48 (0.87-1.13)
[2016-05-19] MEDS: LASIX IV SCH (09:11)
[2016-05-19] MEDS: LOPRESSOR PO SCH ×2 (09:11→22:30)
[2016-05-19] MEDS ORDERED: ZESTRIL PO SCH (10:00)
--- NOTE | 2016-05-19 11:59 | Progress Note ---
Assessment and Plan Atypical chest pain-->likely costochondritis troponin negative x 3 no acute EKG changes stress test in am Atrial fibrillation with RVR Echo 04/2016: mild LVH, EF 45-50%, impaired relaxation d/c IV amiodarone continue cardizem CD 300mg daily, metoprolol 50mg BID continue coumadin, okay per GI Anemia s/p PRBC transfusion this am, await repeat hemoglobin EGD/colonoscopy during last admission showed no active bleeding coumadin okay per GI monitor hemoglobin Hypertension BP stable Leukocytosis Continue current management. Continue close monitoring of heart rate and BP. Lexiscan thallium stress test in am. The patient has been seen in conjunction with Dr. Mckinnon who agrees with the assessment and plan of care. Subjective Date of service: 05/19/16 Principal diagnosis: atrial fibrillation, atypical chest pain Interval history: The patient is resting in bed. She c/o intermittent substernal chest pain that is worse with coughing, movement and deep inspiration. Atrial fibrillation with HR 90s-110s on the monitor. Objective Last Vital Signs Temp 98 F 05/19/16 08:00 Pulse 92 H 05/19/16 09:12 Resp 20 05/19/16 08:00 BP 106/74 05/19/16 09:12 Pulse Ox 98 05/19/16 10:36 - Physical Examination General: No Apparent Distress HEENT: Positive: PERRL, Normocephaly, Mucus Membranes Moist Neck: Positive: neck supple, trachea midline Cardiac: Positive: irregularly irregular, S1/S2 Lungs: Positive: Decreased Breath Sounds (bilateral based) Neuro: Positive: Grossly Intact Abdomen: Positive: Soft, Active Bowel Sounds. Negative: Tender Skin: Positive: Clear Extremities: Absent: edema - Labs and Meds Coagulation 05/19/16 Range/Units 04:59 PT 17.9 H (12.2-14.9) Sec. INR 1.48 H (0.87-1.13) - Imaging and Cardiology Echo: report reviewed (04/2016: mild LVH, EF 45-50%, impaired relaxation ) - Telemetry EKG Rhythm: Atrial Fibrillation
[2016-05-19] MEDS ORDERED: MORPHINE IV ONE (14:23)
[2016-05-19] MEDS: PERCOCET 5/325 PO PRN (15:08)
[2016-05-19] MEDS: COUMADIN PO SCH (18:04)
[2016-05-19] MEDS: ATIVAN PO PRN (18:05)
--- NOTE | 2016-05-19 18:33 | Progress Note ---
Assessment and Plan Assessment and plan: 60F who self stopped coumadin because she had no place to fup INR, who presented with CP 1. Chest pain serial trops neg, cardiology input appreciated, fup Stress test this am 2. Afib with RVR continue AVN blocking agents, continue warfarin, rate still poorly controlled, continue to titrate up PO meds 3. Anemia, microcytic anemia has has recent negative EGD and Cscope; anemia is most likely to due poor nutrition, will give iron supplements Status post transfusion, withd adequate rise in Hg 4. Tachycardia induced chronic systolic CHF- echo 04/29 showed EF 40% Currently euvolemic, meds optimized History Interval history: she denies bloody stool or tarry stool, chest pain and palpitations are improved Hospitalist Physical - Physical exam Narrative exam: General: Patient appears well in no distress HEENT: MMM, EOMI cardiac: S1-S2 heard lungs: clear to auscultation, abdomen: soft, nontender, nondistended bowel sounds positive extremities: no edema clubbing or cyanosis Skin: no rash or lesion Neuro: no focal deficit Psych: appropriate behavior and mood, cognition intact - Constitutional Vitals: Temp Pulse Resp BP Pulse Ox 97.3 F L 124 H 20 117/65 97 05/19/16 16:39 05/19/16 16:39 05/19/16 16:39 05/19/16 16:39 05/19/16 16:39 General appearance: Present: no acute distress Results - Labs CBC & Chem 7: 05/20/16 05:43 05/18/16 06:25 Labs: Laboratory Last Values WBC 18.0 K/mm3 (4.5-11.0) H 05/18/16 06:25 RBC 4.62 M/mm3 (3.65-5.03) 05/18/16 06:25 Hgb 7.2 gm/dl (10.1-14.3) L 05/18/16 06:25 Hct 26.2 % (30.3-42.9) L 05/18/16 06:25 MCV 57 fl (79-97) L 05/18/16 06:25 MCH 16 pg (28-32) L 05/18/16 06:25 MCHC 28 % (30-34) L 05/18/16 06:25 RDW 23.5 % (13.2-15.2) H 05/18/16 06:25 Plt Count 446 K/mm3 (140-440) H 05/18/16 06:25 Lymph % (Auto) 10.0 % (13.4-35.0) L 05/18/16 06:25 [place] % (Auto) 10.0 % (0.0-7.3) H 05/18/16 06:25 Eos % (Auto) 0.5 % (0.0-4.3) 05/18/16 06:25 Baso % (Auto) 0.6 % (0.0-1.8) 05/18/16 06:25 Lymph # 1.8 K/mm3 (1.2-5.4) 05/18/16 06:25 [place] # 1.8 K/mm3 (0.0-0.8) H 05/18/16 06:25 Eos # 0.1 K/mm3 (0.0-0.4) 05/18/16 06:25 Baso # 0.1 K/mm3 (0.0-0.1) 05/18/16 06:25 Add Manual Diff Complete 05/17/16 15:10 Total Counted 100 05/17/16 15:10 Seg Neutrophils % 78.9 % (40.0-70.0) H 05/18/16 06:25 Seg Neuts % (Manual) 91.0 % (40.0-70.0) H 05/17/16 15:10 Band Neutrophils % 0 % 05/17/16 15:10 Lymphocytes % (Manual) 6.0 % (13.4-35.0) L 05/17/16 15:10 Reactive Lymphs % (Man) 0 % 05/17/16 15:10 Monocytes % (Manual) 3.0 % (0.0-7.3) 05/17/16 15:10 Eosinophils % (Manual) 0 % (0.0-4.3) 05/17/16 15:10 Basophils % (Manual) 0 % (0.0-1.8) 05/17/16 15:10 Metamyelocytes % 0 % 05/17/16 15:10 Myelocytes % 0 % 05/17/16 15:10 Promyelocytes % 0 % 05/17/16 15:10 Blast Cells % 0 % 05/17/16 15:10 Nucleated RBC % Not Reportable 05/17/16 15:10 Seg Neutrophils # 14.2 K/mm3 (1.8-7.7) H 05/18/16 06:25 Seg Neutrophils # Man 17.2 K/mm3 (1.8-7.7) H 05/17/16 15:10 Band Neutrophils # 0.0 K/mm3 05/17/16 15:10 Lymphocytes # (Manual) 1.1 K/mm3 (1.2-5.4) L 05/17/16 15:10 Abs React Lymphs (Man) 0.0 K/mm3 05/17/16 15:10 Monocytes # (Manual) 0.6 K/mm3 (0.0-0.8) 05/17/16 15:10 Eosinophils # (Manual) 0.0 K/mm3 (0.0-0.4) 05/17/16 15:10 Basophils # (Manual) 0.0 K/mm3 (0.0-0.1) 05/17/16 15:10 Metamyelocytes # 0.0 K/mm3 05/17/16 15:10 Myelocytes # 0.0 K/mm3 05/17/16 15:10 Promyelocytes # 0.0 K/mm3 05/17/16 15:10 Blast Cells # 0.0 K/mm3 05/17/16 15:10 WBC Morphology Not Reportable 05/17/16 15:10 Hypersegmented Neuts Not Reportable 05/17/16 15:10 Hyposegmented Neuts Not Reportable 05/17/16 15:10 Hypogranular Neuts Not Reportable 05/17/16 15:10 Smudge Cells Not Reportable 05/17/16 15:10 Toxic Granulation Not Reportable 05/17/16 15:10 Toxic Vacuolation Not Reportable 05/17/16 15:10 Dohle Bodies Not Reportable 05/17/16 15:10 Pelger-Huet Anomaly Not Reportable 05/17/16 15:10 Ankit Rods Not Reportable 05/17/16 15:10 Platelet Estimate Consistent w auto 05/17/16 15:10 Clumped Platelets Not Reportable 05/17/16 15:10 Plt Clumps, EDTA Not Reportable 05/17/16 15:10 Large Platelets Not Reportable 05/17/16 15:10 Giant Platelets Not Reportable 05/17/16 15:10 Platelet Satelliting Not Reportable 05/17/16 15:10 Plt Morphology Comment Not Reportable 05/17/16 15:10 RBC Morphology Not Reportable 05/17/16 15:10 Dimorphic RBCs Not Reportable 05/17/16 15:10 Polychromasia Not Reportable 05/17/16 15:10 Hypochromasia Not Reportable 05/17/16 15:10 Poikilocytosis Not Reportable 05/17/16 15:10 Anisocytosis 1+ 05/17/16 15:10 Microcytosis Not Reportable 05/17/16 15:10 Macrocytosis Not Reportable 05/17/16 15:10 Spherocytes Not Reportable 05/17/16 15:10 Pappenheimer Bodies Not Reportable 05/17/16 15:10 Sickle Cells Not Reportable 05/17/16 15:10 Target Cells Not Reportable 05/17/16 15:10 Tear Drop Cells Not Reportable 05/17/16 15:10 Ovalocytes Not Reportable 05/17/16 15:10 Helmet Cells Not Reportable 05/17/16 15:10 [place] Bodies Not Reportable 05/17/16 15:10 [place] Rings Not Reportable 05/17/16 15:10 [place] Cells Not Reportable 05/17/16 15:10 Bite Cells Not Reportable 05/17/16 15:10 Crenated Cell Not Reportable 05/17/16 15:10 Elliptocytes Not Reportable 05/17/16 15:10 Acanthocytes (Spur) Not Reportable 05/17/16 15:10 Rouleaux Not Reportable 05/17/16 15:10 Hemoglobin C Crystals Not Reportable 05/17/16 15:10 Schistocytes Not Reportable 05/17/16 15:10 Malaria parasites Not Reportable 05/17/16 15:10 [place] Bodies Not Reportable 05/17/16 15:10 Hem Pathologist Commnt No 05/17/16 15:10 PT 17.9 Sec. (12.2-14.9) H 05/19/16 04:59 INR 1.48 (0.87-1.13) H 05/19/16 04:59 APTT 33.9 Sec. (24.2-36.6) 05/17/16 15:10 Sodium 138 mmol/L (137-145) 05/18/16 06:25 Potassium 3.9 mmol/L (3.6-5.0) 05/18/16 06:25 Chloride 100.1 mmol/L (98-107) 05/18/16 06:25 Carbon Dioxide 23 mmol/L (22-30) 05/18/16 06:25 Anion Gap 19 mmol/L 05/18/16 06:25 BUN 10 mg/dL (7-17) 05/18/16 06:25 Creatinine 0.8 mg/dL (0.7-1.2) 05/18/16 06:25 Estimated GFR > 60 ml/min 05/18/16 06:25 BUN/Creatinine Ratio 12.50 % 05/18/16 06:25 Glucose 104 mg/dL (65-100) H 05/18/16 06:25 Calcium 8.8 mg/dL (8.4-10.2) 05/18/16 06:25 Total Bilirubin 0.6 mg/dL (0.1-1.2) 05/18/16 06:25 AST 14 units/L (5-40) 05/18/16 06:25 ALT 16 units/L (7-56) 05/18/16 06:25 Alkaline Phosphatase 80 units/L (35-129) 05/18/16 06:25 Troponin T < 0.010 ng/mL (0.00-0.029) 05/17/16 21:40 Total Protein 6.3 g/dL (6.3-8.2) 05/18/16 06:25 Albumin 3.1 g/dL (3.9-5) L 05/18/16 06:25 Albumin/Globulin Ratio 1.0 % 05/18/16 06:25 Blood Type O POSITIVE 05/18/16 10:48 Antibody Screen Negative 05/18/16 10:48 Crossmatch See Detail 05/18/16 10:48
[2016-05-19 22:48] LABS: Hematocrit 30.8 % (30.3-42.9); Hemoglobin 9.1 gm/dl (10.1-14.3)
[2016-05-20] MEDS: XANAX PO PRN (00:02)
[2016-05-20] MEDS: MORPHINE IV PRN (03:17)
[2016-05-20 06:45] LABS: Mean Corpuscular HGB Conc 30 % (30-34); Platelet Count 425 K/mm3 (140-440); Red Blood Count 5.14 M/mm3 (3.65-5.03)
[2016-05-20 06:54] LABS: Hemoglobin 9.1 gm/dl (10.1-14.3); INR 1.59 (0.87-1.13)
[2016-05-20 06:55] LABS: Hematocrit 30.5 % (30.3-42.9); Mean Corpuscular Hemoglobin 18 pg (28-32); Mean Corpuscular Volume 59 fl (79-97); Red Cell Distribution Width 26.8 % (13.2-15.2)
[2016-05-20] MEDS: PERCOCET 5/325 PO PRN ×2 (08:10→14:41)
[2016-05-20 08:24] LABS: Basophils % (Manual) 0 % (0.0-1.8); Blastocytes % (Manual) 0 %
[2016-05-20 08:27] LABS: Anisocytosis 2+; Hypochromasia 2+; Microcytosis 2+
[2016-05-20 08:28] LABS: Diff Status Complete; Platelet Estimate Consistent w Auto
[2016-05-20] MEDS ORDERED: LEXISCAN IV ONE ×2 (08:55→08:59)
[2016-05-20] MEDS: LOPRESSOR PO SCH ×2 (10:00→22:32)
--- NOTE | 2016-05-20 10:23 | Admit Criteria Form ---
Admission Criteria Documentation: ATRIAL FIBRILLATION Clinical Indications for Admission to Inpatient Care (Place 'X' for any and all applicable criteria): Admission indicated for ANY ONE of the following(1)(2)(3)(4)(5) : [ ]I. Myocardial ischemia [ ]II. Dyspnea or hypoxemia [ ]III. Hemodynamic instability [ ]IV. Heart failure (e.g., pulmonary edema) (7) [ ]V. New-onset (less than 48 hours) atrial fibrillation with high risk for causing complications secondary to comorbidities (eg, symptomatic heart failure ) [ ]. Altered mental status [ ]VII. Syncope [ ]VIII. Patient has implantable cardioverter defibrillator that has fired more than once within past 24hr or needs immediate adjustment of settings that cannot be done other than in inpatient setting. (8) [ ]IX. Suspected accessory pathway (e.g., Yjzux-Egtwttlki-Gjmdv syndrome) on ECG [ ]X. Recent systemic thromboembolism (eg, stroke) [ ]XI. Medication toxicity (e.g., digitalis) causing arrhythmia(9) [X]XII. Underlying medical condition that necessitates inpatient care (e.g., thyrotoxicosis, pneumonia) (10) [ ]XIII. Continuous ECG monitoring is required for condition causing arrhythmia (e.g., severe hyperkalemia, hypokalemia, acid-base disturbance).(11)(12)(13) [ ]XIV. Initiation of antiarrhythmic drug therapy is needed in patient at high risk of adverse effects as indicated by ANY ONE of the following: [ ]a) Significant structural heart disease (e.g., reduced ejection fraction, congenital heart disease, valvular heart disease) [ ]b) Prolonged QT interval [ ]c) Underlying sinus node or atrioventricular conduction disturbances [ ]d) Need for treatment with antiarrhythmic drugs that have significant proarrhythmic potential (e.g., dofetilide, sotalol, procainamide) [ ]e) Patient whose sinus rhythm has never been observed on ECG [ ]XV. Intolerable symptoms despite optimal outpatient treatment [ ]XVI. Elective or urgent cardioversion that cannot be performed on outpatient basis or during observation care. [A] (Use also Atrial Fibrillation: Observation Care ) as appropriate.(14) [ ]XVII.Contraindications and/or Inappropriate clinical situations for Observational Care in patients with Atrial Fibrillation, when ANY ONE of the following is required: [ ]a) Patient with High risk of cardiac embolism (e.g, patients with previous cardiac embolism, LVEF < 40%, age >75 and patients with prosthetic valve) 18 [ ]b) Patient with Moderate risk including DM patient, CAD and patient aged 65-75 18 [ ]c) Patient with any change in cardiac biomarker especially troponin should be managed as high risk in an inpatient setting 19 [ ]d) Physician judgement irrespective of ECG and other diagnostic findings 20 [ ]XVIII.General contraindications and/or Inappropriate clinical situations for Observational Care in patients with Atrial Fibrillation, when ANY ONE of the following is required: [ ]a) Prediction of prolongation of LOS based on ANY ONE of the following may be considered as a contraindication for observational care 2, 3, 4, 5, 6, 7, 8, 9, 10, 11 [ ]i) Age > 65 yrs. [ ]ii) Patient arriving by ambulance [ ]iii) Patient with high acuity [ ]iv) Patient requiring vital sign monitoring [ ]v) Patient on IV medication [ ]b) Systolic blood pressures 180mmHg 3,12 [ ]c) Patient with altered mental status including delirium and other alteration of consciousness3 [ ]d) Patient whose discharge disposition will be to a prison home or rehabilitation home should not be managed in Emergency Department Observation Unit. CMS rule requires 3 days hospital stay before such placement.3,13 [ ]e) Patient with failure to thrive due to broad array of etiologies 3,16,17 [ ]f) Inability to ambulate 3,14 Extended stay beyond goal length of stay may be needed for (1)(25)(26): [ ]a) Unstable comorbidities [ ]b) Persistently uncontrolled atrial fibrillation or other arrhythmias [ ]c) Acute thromboembolic event (e.g., stroke, limb ischemia) [ ]d) Need for inpatient attainment of full anticoagulation The original [employer] content created by [employer] has been revised. The portions of the content which have been revised are identified through the use of italic text or in bold, and [email or web address] has neither reviewed nor approved the modified material. All other unmodified content is copyright [employer]. Please see references footnoted in the original [employer] edition 2016 Admission Criteria Met: Yes
[2016-05-20] MEDS: LASIX PO SCH (11:06)
[2016-05-20] MEDS: FERGON PO SCH (11:06)
[2016-05-20] MEDS: CARDIZEM CD PO SCH (11:06)
--- NOTE | 2016-05-20 11:46 | Treadmill Report ---
NUCLEAR STRESS TEST REFERRING PHYSICIAN: Jas Mckinnon MD PROTOCOL: The patient was brought to the stress lab in a postabsorptive state, given 10 mCi of technetium 99m at rest. The patient underwent rest imaging. The patient underwent Lexiscan stress test. At peak stress, the patient was given 26 mCi of technetium 99m. Shortly thereafter, the patient underwent stress imaging. Raw imaging reveals mild GI artifact. No significant motion artifact. SPECT imaging examined carefully in the horizontal long axis, vertical long axis, and short axis views. No gating is done as the patient is in atrial fibrillation. SPECT imaging reveals normal homogenous uptake of radioisotope in all reported segments. No evidence of significant fixed or reversible perfusion defects suggestive of prior infarction or active ischemia. CONCLUSIONS: 1. Normal myocardial perfusion scan, without evidence of active ischemia or prior infarction. 2. No gating performed due to presence of atrial fibrillation. JOB# [id number] DEBORAH/ABELINO
--- NOTE | 2016-05-20 13:39 | Progress Note ---
Assessment and Plan Atypical chest pain-->likely costochondritis troponin negative x 3 no acute EKG changes stress test negative for ischemia Atrial fibrillation with RVR Echo 04/2016: mild LVH, EF 45-50%, impaired relaxation d/c IV amiodarone continue coumadin, okay per GI continue cardizem CD 300mg daily, metoprolol 50mg BID add digoxin for better rate control Anemia hgb improved s/p PRBC transfusion 05/19 EGD/colonoscopy during last admission showed no active bleeding coumadin okay per GI monitor hemoglobin Hypertension BP stable Leukocytosis Stress test negative for ischemia. Add digoxin for better rate control. Continue close monitoring of heart rate. The patient has been seen in conjunction with Dr. Mckinnon who agrees with the assessment and plan of care. Subjective Date of service: 05/20/16 Principal diagnosis: atrial fibrillation, atypical chest pain Interval history: The patient is resting comfortably in bed. Atrial fibrillation with HR 100s- 120s on the monitor. Objective Last Vital Signs Temp 97.6 F 05/20/16 08:00 Pulse 112 H 05/20/16 11:06 Resp 20 05/20/16 08:00 BP 133/82 05/20/16 09:35 Pulse Ox 100 05/20/16 11:22 - Physical Examination General: No Apparent Distress HEENT: Positive: PERRL, Normocephaly, Mucus Membranes Moist Neck: Positive: neck supple, trachea midline Cardiac: Positive: irregularly irregular, S1/S2 Lungs: Positive: Decreased Breath Sounds Neuro: Positive: Grossly Intact Abdomen: Positive: Soft, Active Bowel Sounds. Negative: Tender Skin: Positive: Clear Extremities: Absent: edema - Labs and Meds Coagulation 05/20/16 Range/Units 05:43 PT 18.9 H (12.2-14.9) Sec. INR 1.59 H (0.87-1.13) CBC 05/19/16 05/20/16 Range/Units 22:18 05:43 WBC 14.0 H (4.5-11.0) K/mm3 RBC 5.14 H (3.65-5.03) M/mm3 Hgb 9.1 L 9.1 L (10.1-14.3) gm/dl Hct 30.8 30.5 (30.3-42.9) % Plt Count 425 (140-440) K/mm3 - Imaging and Cardiology Echo: report reviewed (04/2016: mild LVH, EF 45-50%, impaired relaxation ) - Telemetry EKG Rhythm: Atrial Fibrillation
[2016-05-20] MEDS ORDERED: LANOXIN IV ONE (14:00)
[2016-05-20] MEDS: ATIVAN PO PRN (14:47)
--- NOTE | 2016-05-20 17:20 | Progress Note ---
Assessment and Plan Assessment and plan: 60F who self stopped coumadin because she had no place to fup INR, who presented with CP. She was worked up for chest pain, had a negative stress test. She had uncontrolled A. fib and RVR for which she was put on amiodarone and then transitioned to oral medications, oral medications within titrated up. She was restarted on Coumadin. Also notes she can continue Coumadin as an outpatient even if she doesn't have insurance as Coumadin is less than $4 a month, her main issue in the past was that she did not have a place to follow up INRs. She is being referred to [facility] Coumadin clinic for continuation of anticoagulation. 1. Chest pain serial trops neg, cardiology input appreciated, Chest pain was most likely due to uncontrolled A. fib, stress test was negative 2. Afib with RVR continue AVN blocking agents, continue warfarin, rate still poorly controlled, continue to titrate up PO meds 3. Anemia, microcytic anemia has has recent negative EGD and Cscope; anemia is most likely to due poor nutrition, will give iron supplements Status post transfusion, with adequate rise in Hg 4. Tachycardia induced chronic systolic CHF- echo 04/29 showed EF 40% Currently euvolemic, meds optimized Tentative discharge in 1-2 days if heart rate is better controlled History Interval history: chest pain and palpitations are improved Hospitalist Physical - Physical exam Narrative exam: General: Patient appears well in no distress HEENT: MMM, EOMI cardiac: S1-S2 heard lungs: clear to auscultation, abdomen: soft, nontender, nondistended bowel sounds positive extremities: no edema clubbing or cyanosis Skin: no rash or lesion Neuro: no focal deficit Psych: appropriate behavior and mood, cognition intact - Constitutional Vitals: Temp Pulse Resp BP Pulse Ox 97.6 F 103 H 20 100/65 95 05/20/16 14:00 05/20/16 16:00 05/20/16 14:00 05/20/16 14:00 05/20/16 14:00 General appearance: Present: no acute distress Results - Labs CBC & Chem 7: 05/20/16 05:43 05/18/16 06:25 Labs: Laboratory Last Values WBC 14.0 K/mm3 (4.5-11.0) H 05/20/16 05:43 RBC 5.14 M/mm3 (3.65-5.03) H 05/20/16 05:43 Hgb 9.1 gm/dl (10.1-14.3) L 05/20/16 05:43 Hct 30.5 % (30.3-42.9) 05/20/16 05:43 MCV 59 fl (79-97) L 05/20/16 05:43 MCH 18 pg (28-32) L 05/20/16 05:43 MCHC 30 % (30-34) 05/20/16 05:43 RDW 26.8 % (13.2-15.2) H 05/20/16 05:43 Plt Count 425 K/mm3 (140-440) 05/20/16 05:43 Lymph % (Auto) 10.0 % (13.4-35.0) L 05/18/16 06:25 [place] % (Auto) 10.0 % (0.0-7.3) H 05/18/16 06:25 Eos % (Auto) 0.5 % (0.0-4.3) 05/18/16 06:25 Baso % (Auto) 0.6 % (0.0-1.8) 05/18/16 06:25 Lymph # 1.8 K/mm3 (1.2-5.4) 05/18/16 06:25 [place] # 1.8 K/mm3 (0.0-0.8) H 05/18/16 06:25 Eos # 0.1 K/mm3 (0.0-0.4) 05/18/16 06:25 Baso # 0.1 K/mm3 (0.0-0.1) 05/18/16 06:25 Add Manual Diff Complete 05/20/16 05:43 Total Counted 100 05/20/16 05:43 Seg Neutrophils % 78.9 % (40.0-70.0) H 05/18/16 06:25 Seg Neuts % (Manual) 85.0 % (40.0-70.0) H 05/20/16 05:43 Band Neutrophils % 1.0 % 05/20/16 05:43 Lymphocytes % (Manual) 10.0 % (13.4-35.0) L 05/20/16 05:43 Reactive Lymphs % (Man) 0 % 05/20/16 05:43 Monocytes % (Manual) 3.0 % (0.0-7.3) 05/20/16 05:43 Eosinophils % (Manual) 1.0 % (0.0-4.3) 05/20/16 05:43 Basophils % (Manual) 0 % (0.0-1.8) 05/20/16 05:43 Metamyelocytes % 0 % 05/20/16 05:43 Myelocytes % 0 % 05/20/16 05:43 Promyelocytes % 0 % 05/20/16 05:43 Blast Cells % 0 % 05/20/16 05:43 Nucleated RBC % Not Reportable 05/20/16 05:43 Seg Neutrophils # 14.2 K/mm3 (1.8-7.7) H 05/18/16 06:25 Seg Neutrophils # Man 11.9 K/mm3 (1.8-7.7) H 05/20/16 05:43 Band Neutrophils # 0.1 K/mm3 05/20/16 05:43 Lymphocytes # (Manual) 1.4 K/mm3 (1.2-5.4) 05/20/16 05:43 Abs React Lymphs (Man) 0.0 K/mm3 05/20/16 05:43 Monocytes # (Manual) 0.4 K/mm3 (0.0-0.8) 05/20/16 05:43 Eosinophils # (Manual) 0.1 K/mm3 (0.0-0.4) 05/20/16 05:43 Basophils # (Manual) 0.0 K/mm3 (0.0-0.1) 05/20/16 05:43 Metamyelocytes # 0.0 K/mm3 05/20/16 05:43 Myelocytes # 0.0 K/mm3 05/20/16 05:43 Promyelocytes # 0.0 K/mm3 05/20/16 05:43 Blast Cells # 0.0 K/mm3 05/20/16 05:43 WBC Morphology Not Reportable 05/20/16 05:43 Hypersegmented Neuts Not Reportable 05/20/16 05:43 Hyposegmented Neuts Not Reportable 05/20/16 05:43 Hypogranular Neuts Not Reportable 05/20/16 05:43 Smudge Cells Not Reportable 05/20/16 05:43 Toxic Granulation Not Reportable 05/20/16 05:43 Toxic Vacuolation Not Reportable 05/20/16 05:43 Dohle Bodies Not Reportable 05/20/16 05:43 Pelger-Huet Anomaly Not Reportable 05/20/16 05:43 Ankit Rods Not Reportable 05/20/16 05:43 Platelet Estimate Consistent w auto 05/20/16 05:43 Clumped Platelets Not Reportable 05/20/16 05:43 Plt Clumps, EDTA Not Reportable 05/20/16 05:43 Large Platelets Not Reportable 05/20/16 05:43 Giant Platelets Not Reportable 05/20/16 05:43 Platelet Satelliting Not Reportable 05/20/16 05:43 Plt Morphology Comment Not Reportable 05/20/16 05:43 RBC Morphology Not Reportable 05/20/16 05:43 Dimorphic RBCs Not Reportable 05/20/16 05:43 Polychromasia Not Reportable 05/20/16 05:43 Hypochromasia 2+ 05/20/16 05:43 Poikilocytosis Not Reportable 05/20/16 05:43 Anisocytosis 2+ 05/20/16 05:43 Microcytosis 2+ 05/20/16 05:43 Macrocytosis Not Reportable 05/20/16 05:43 Spherocytes Not Reportable 05/20/16 05:43 Pappenheimer Bodies Not Reportable 05/20/16 05:43 Sickle Cells Not Reportable 05/20/16 05:43 Target Cells Not Reportable 05/20/16 05:43 Tear Drop Cells Not Reportable 05/20/16 05:43 Ovalocytes Not Reportable 05/20/16 05:43 Helmet Cells Not Reportable 05/20/16 05:43 [place] Bodies Not Reportable 05/20/16 05:43 [place] Rings Not Reportable 05/20/16 05:43 [place] Cells Not Reportable 05/20/16 05:43 Bite Cells Not Reportable 05/20/16 05:43 Crenated Cell Not Reportable 05/20/16 05:43 Elliptocytes Not Reportable 05/20/16 05:43 Acanthocytes (Spur) Not Reportable 05/20/16 05:43 Rouleaux Not Reportable 05/20/16 05:43 Hemoglobin C Crystals Not Reportable 05/20/16 05:43 Schistocytes Not Reportable 05/20/16 05:43 Malaria parasites Not Reportable 05/20/16 05:43 [place] Bodies Not Reportable 05/20/16 05:43 Hem Pathologist Commnt No 05/20/16 05:43 PT 18.9 Sec. (12.2-14.9) H 05/20/16 05:43 INR 1.59 (0.87-1.13) H 05/20/16 05:43 APTT 33.9 Sec. (24.2-36.6) 05/17/16 15:10 Sodium 138 mmol/L (137-145) 05/18/16 06:25 Potassium 3.9 mmol/L (3.6-5.0) 05/18/16 06:25 Chloride 100.1 mmol/L (98-107) 05/18/16 06:25 Carbon Dioxide 23 mmol/L (22-30) 05/18/16 06:25 Anion Gap 19 mmol/L 05/18/16 06:25 BUN 10 mg/dL (7-17) 05/18/16 06:25 Creatinine 0.8 mg/dL (0.7-1.2) 05/18/16 06:25 Estimated GFR > 60 ml/min 05/18/16 06:25 BUN/Creatinine Ratio 12.50 % 05/18/16 06:25 Glucose 104 mg/dL (65-100) H 05/18/16 06:25 Calcium 8.8 mg/dL (8.4-10.2) 05/18/16 06:25 Total Bilirubin 0.6 mg/dL (0.1-1.2) 05/18/16 06:25 AST 14 units/L (5-40) 05/18/16 06:25 ALT 16 units/L (7-56) 05/18/16 06:25 Alkaline Phosphatase 80 units/L (35-129) 05/18/16 06:25 Troponin T < 0.010 ng/mL (0.00-0.029) 05/17/16 21:40 NT-Pro-B Natriuret Pep 1346 pg/mL (0-900) H 05/20/16 05:43 Total Protein 6.3 g/dL (6.3-8.2) 05/18/16 06:25 Albumin 3.1 g/dL (3.9-5) L 05/18/16 06:25 Albumin/Globulin Ratio 1.0 % 05/18/16 06:25 Blood Type O POSITIVE 05/18/16 10:48 Antibody Screen Negative 05/18/16 10:48 Crossmatch See Detail 05/18/16 10:48
[2016-05-20] MEDS: COUMADIN PO SCH (17:38)
[2016-05-21] MEDS: PERCOCET 5/325 PO PRN ×3 (02:20→17:43)
[2016-05-21] MEDS: LOPRESSOR PO SCH ×3 (02:35→22:07)
[2016-05-21 07:28] LABS: Mean Corpuscular HGB Conc 30 % (30-34); Platelet Count 450 K/mm3 (140-440); Red Blood Count 5.05 M/mm3 (3.65-5.03); White Blood Count 14.6 K/mm3 (4.5-11.0)
[2016-05-21 07:29] LABS: INR 1.67 (0.87-1.13)
[2016-05-21 07:31] LABS: Hematocrit 30.5 % (30.3-42.9); Hemoglobin 9.1 gm/dl (10.1-14.3); Mean Corpuscular Hemoglobin 18 pg (28-32); Mean Corpuscular Volume 60 fl (79-97); Red Cell Distribution Width 27.4 % (13.2-15.2)
[2016-05-21 08:22] LABS: Blastocytes % (Manual) 0 %
[2016-05-21 08:23] LABS: Anisocytosis 2+; Diff Status Complete; Hypochromasia 2+; Large Platelets Few; Microcytosis 2+
[2016-05-21 08:24] LABS: Platelet Estimate Cons; Polychromasia Rare
--- NOTE | 2016-05-21 11:00 | Progress Note ---
Assessment and Plan Assessment and plan: 60F who self stopped coumadin because she had no place to fup INR, who presented with CP. She was worked up for chest pain, had a negative stress test. She had uncontrolled A. fib and RVR for which she was put on amiodarone and then transitioned to oral medications, oral medications within titrated up. She was restarted on Coumadin. Also notes she can continue Coumadin as an outpatient even if she doesn't have insurance as Coumadin is less than $4 a month, her main issue in the past was that she did not have a place to follow up INRs. She is being referred to [facility] Coumadin clinic for continuation of anticoagulation. 1. Chest pain serial trops neg, cardiology input appreciated, Chest pain was most likely due to uncontrolled A. fib, stress test was negative 2. Afib with RVR continue AVN blocking agents, continue warfarin, rate still poorly controlled, continue to titrate up PO meds 3. Anemia, microcytic anemia has has recent negative EGD and Cscope; anemia is most likely to due poor nutrition, will give iron supplements Status post transfusion, with adequate rise in Hg 4. Tachycardia induced chronic systolic CHF- echo 04/29 showed EF 40% Currently euvolemic, meds optimized Tentative discharge in 1-2 days if heart rate is better controlled and INR therapeutic with Coumadin. History Interval history: Patient seen and examined. Medical records and medication list reviewed. No acute event overnight noted by the RN. Patient denies any chest pain or difficulty breathing. Patient is tolerating diet. Discussed plan of care at bedside with patient. Hospitalist Physical - Physical exam Narrative exam: GENERAL: well-developed and well-nourished elderly female lying on bed appeared to be in no discomfort. HEENT: Normocephalic. Atraumatic. No conjunctival congestion or icterus. Patient has moist mucous membranes. NECK: Supple. Trachea midline. CHEST/LUNGS: Clear to auscultated bilaterally, breathing nonlabored. No wheezes crackles or rhonchi. HEART/CARDIOVASCULAR: Regular in rate and rhythm. S1 and S2 positive. ABDOMEN: Abdomen is soft, nontender. Patient has normal bowel sounds. SKIN: There is no rash. Warm and dry. NEURO: No focal motor deficit. Follows command. MUSCULOSKELETAL: No joint effusion or tenderness. EXTRIMITY: No edema, no cyanosis or clubbing. PSYCH: Cooperative. - Constitutional Vitals: Temp Pulse Resp BP Pulse Ox 97.8 F 89 18 133/70 99 05/21/16 08:00 05/21/16 08:00 05/21/16 08:00 05/21/16 08:00 05/21/16 08:00 General appearance: Present: no acute distress Results - Labs CBC & Chem 7: 05/21/16 06:55 05/18/16 06:25 Labs: Laboratory Last Values WBC 14.6 K/mm3 (4.5-11.0) H 05/21/16 06:55 RBC 5.05 M/mm3 (3.65-5.03) H 05/21/16 06:55 Hgb 9.1 gm/dl (10.1-14.3) L 05/21/16 06:55 Hct 30.5 % (30.3-42.9) 05/21/16 06:55 MCV 60 fl (79-97) L 05/21/16 06:55 MCH 18 pg (28-32) L 05/21/16 06:55 MCHC 30 % (30-34) 05/21/16 06:55 RDW 27.4 % (13.2-15.2) H 05/21/16 06:55 Plt Count 450 K/mm3 (140-440) H 05/21/16 06:55 Lymph % (Auto) 10.0 % (13.4-35.0) L 05/18/16 06:25 [place] % (Auto) 10.0 % (0.0-7.3) H 05/18/16 06:25 Eos % (Auto) 0.5 % (0.0-4.3) 05/18/16 06:25 Baso % (Auto) 0.6 % (0.0-1.8) 05/18/16 06:25 Lymph # 1.8 K/mm3 (1.2-5.4) 05/18/16 06:25 [place] # 1.8 K/mm3 (0.0-0.8) H 05/18/16 06:25 Eos # 0.1 K/mm3 (0.0-0.4) 05/18/16 06:25 Baso # 0.1 K/mm3 (0.0-0.1) 05/18/16 06:25 Add Manual Diff Complete 05/21/16 06:55 Total Counted 100 05/21/16 06:55 Seg Neutrophils % 78.9 % (40.0-70.0) H 05/18/16 06:25 Seg Neuts % (Manual) 77.0 % (40.0-70.0) H 05/21/16 06:55 Band Neutrophils % 0 % 05/21/16 06:55 Lymphocytes % (Manual) 14.0 % (13.4-35.0) 05/21/16 06:55 Reactive Lymphs % (Man) 0 % 05/21/16 06:55 Monocytes % (Manual) 7.0 % (0.0-7.3) 05/21/16 06:55 Eosinophils % (Manual) 1.0 % (0.0-4.3) 05/21/16 06:55 Basophils % (Manual) 1.0 % (0.0-1.8) 05/21/16 06:55 Metamyelocytes % 0 % 05/21/16 06:55 Myelocytes % 0 % 05/21/16 06:55 Promyelocytes % 0 % 05/21/16 06:55 Blast Cells % 0 % 05/21/16 06:55 Nucleated RBC % Not Reportable 05/21/16 06:55 Seg Neutrophils # 14.2 K/mm3 (1.8-7.7) H 05/18/16 06:25 Seg Neutrophils # Man 11.2 K/mm3 (1.8-7.7) H 05/21/16 06:55 Band Neutrophils # 0.0 K/mm3 05/21/16 06:55 Lymphocytes # (Manual) 2.0 K/mm3 (1.2-5.4) 05/21/16 06:55 Abs React Lymphs (Man) 0.0 K/mm3 05/21/16 06:55 Monocytes # (Manual) 1.0 K/mm3 (0.0-0.8) H 05/21/16 06:55 Eosinophils # (Manual) 0.1 K/mm3 (0.0-0.4) 05/21/16 06:55 Basophils # (Manual) 0.1 K/mm3 (0.0-0.1) 05/21/16 06:55 Metamyelocytes # 0.0 K/mm3 05/21/16 06:55 Myelocytes # 0.0 K/mm3 05/21/16 06:55 Promyelocytes # 0.0 K/mm3 05/21/16 06:55 Blast Cells # 0.0 K/mm3 05/21/16 06:55 WBC Morphology Not Reportable 05/21/16 06:55 Hypersegmented Neuts Not Reportable 05/21/16 06:55 Hyposegmented Neuts Not Reportable 05/21/16 06:55 Hypogranular Neuts Not Reportable 05/21/16 06:55 Smudge Cells Not Reportable 05/21/16 06:55 Toxic Granulation Not Reportable 05/21/16 06:55 Toxic Vacuolation Not Reportable 05/21/16 06:55 Dohle Bodies Not Reportable 05/21/16 06:55 Pelger-Huet Anomaly Not Reportable 05/21/16 06:55 Ankit Rods Not Reportable 05/21/16 06:55 Platelet Estimate Cons 05/21/16 06:55 Clumped Platelets Not Reportable 05/21/16 06:55 Plt Clumps, EDTA Not Reportable 05/21/16 06:55 Large Platelets Few 05/21/16 06:55 Giant Platelets Not Reportable 05/21/16 06:55 Platelet Satelliting Not Reportable 05/21/16 06:55 Plt Morphology Comment Not Reportable 05/21/16 06:55 RBC Morphology Not Reportable 05/21/16 06:55 Dimorphic RBCs Not Reportable 05/21/16 06:55 Polychromasia Rare 05/21/16 06:55 Hypochromasia 2+ 05/21/16 06:55 Poikilocytosis Not Reportable 05/21/16 06:55 Anisocytosis 2+ 05/21/16 06:55 Microcytosis 2+ 05/21/16 06:55 Macrocytosis Not Reportable 05/21/16 06:55 Spherocytes Not Reportable 05/21/16 06:55 Pappenheimer Bodies Not Reportable 05/21/16 06:55 Sickle Cells Not Reportable 05/21/16 06:55 Target Cells Not Reportable 05/21/16 06:55 Tear Drop Cells Not Reportable 05/21/16 06:55 Ovalocytes Not Reportable 05/21/16 06:55 Helmet Cells Not Reportable 05/21/16 06:55 [place] Bodies Not Reportable 05/21/16 06:55 [place] Rings Not Reportable 05/21/16 06:55 [place] Cells Not Reportable 05/21/16 06:55 Bite Cells Not Reportable 05/21/16 06:55 Crenated Cell Not Reportable 05/21/16 06:55 Elliptocytes Not Reportable 05/21/16 06:55 Acanthocytes (Spur) Not Reportable 05/21/16 06:55 Rouleaux Not Reportable 05/21/16 06:55 Hemoglobin C Crystals Not Reportable 05/21/16 06:55 Schistocytes Not Reportable 05/21/16 06:55 Malaria parasites Not Reportable 05/21/16 06:55 [place]inka Bodies Not Reportable 05/21/16 06:55 Hem Pathologist Commnt No 05/21/16 06:55 PT 19.7 Sec. (12.2-14.9) H 05/21/16 06:55 INR 1.67 (0.87-1.13) H 05/21/16 06:55 APTT 33.9 Sec. (24.2-36.6) 05/17/16 15:10 Sodium 138 mmol/L (137-145) 05/18/16 06:25 Potassium 3.9 mmol/L (3.6-5.0) 05/18/16 06:25 Chloride 100.1 mmol/L (98-107) 05/18/16 06:25 Carbon Dioxide 23 mmol/L (22-30) 05/18/16 06:25 Anion Gap 19 mmol/L 05/18/16 06:25 BUN 10 mg/dL (7-17) 05/18/16 06:25 Creatinine 0.8 mg/dL (0.7-1.2) 05/18/16 06:25 Estimated GFR > 60 ml/min 05/18/16 06:25 BUN/Creatinine Ratio 12.50 % 05/18/16 06:25 Glucose 104 mg/dL (65-100) H 05/18/16 06:25 Calcium 8.8 mg/dL (8.4-10.2) 05/18/16 06:25 Total Bilirubin 0.6 mg/dL (0.1-1.2) 05/18/16 06:25 AST 14 units/L (5-40) 05/18/16 06:25 ALT 16 units/L (7-56) 05/18/16 06:25 Alkaline Phosphatase 80 units/L (35-129) 05/18/16 06:25 Troponin T < 0.010 ng/mL (0.00-0.029) 05/17/16 21:40 NT-Pro-B Natriuret Pep 1346 pg/mL (0-900) H 05/20/16 05:43 Total Protein 6.3 g/dL (6.3-8.2) 05/18/16 06:25 Albumin 3.1 g/dL (3.9-5) L 05/18/16 06:25 Albumin/Globulin Ratio 1.0 % 05/18/16 06:25 Blood Type O POSITIVE 05/18/16 10:48 Antibody Screen Negative 05/18/16 10:48 Crossmatch See Detail 05/18/16 10:48
[2016-05-21] MEDS ORDERED: COUMADIN PO SCH (11:01)
[2016-05-21] MEDS: LASIX PO SCH (11:05)
[2016-05-21] MEDS: COLCRYS PO SCH ×2 (11:06→22:08)
[2016-05-21] MEDS: FERGON PO SCH (11:06)
[2016-05-21] MEDS: CARDIZEM CD PO SCH (11:06)
[2016-05-21] MEDS: PROTONIX PO SCH (11:32)
--- NOTE | 2016-05-21 11:39 | Progress Note ---
Assessment and Plan Atypical chest pain-->?costochondritis/?pericarditis troponin negative x 3 no acute EKG changes stress test negative for ischemia repeat limited echo to evaluate for effusion initiate colchicine Atrial fibrillation with RVR Echo 04/2016: mild LVH, EF 45-50%, impaired relaxation continue coumadin, okay per GI (goal INR 2-3) continue cardizem CD 300mg daily, metoprolol 50mg BID, digoxin 0.125mg daily Anemia hgb improved s/p PRBC transfusion 05/19 EGD/colonoscopy during last admission showed no active bleeding coumadin okay per GI monitor hemoglobin Hypertension BP stable Leukocytosis Continue current management. Will repeat limited echo to evaluate for pericardial effusion. The patient has been seen in conjunction with Dr. Mckinnon who agrees with the assessment and plan of care. Subjective Date of service: 05/21/16 Principal diagnosis: atrial fibrillation, atypical chest pain Interval history: The patient is resting in bed. C/o intermittent chest pain that is worse with cough and deep inspiration. Atrial fibrillation with HR 90s-110s on the monitor. Objective Last Vital Signs Temp 97.8 F 05/21/16 08:00 Pulse 75 05/21/16 11:06 Resp 18 05/21/16 08:00 BP 133/70 05/21/16 11:06 Pulse Ox 99 05/21/16 08:00 - Physical Examination General: No Apparent Distress HEENT: Positive: PERRL, Normocephaly, Mucus Membranes Moist Neck: Positive: neck supple, trachea midline Cardiac: Positive: irregularly irregular, S1/S2, Other (pericardial rub) Lungs: Positive: clear to auscultation Neuro: Positive: Grossly Intact Abdomen: Positive: Soft, Active Bowel Sounds. Negative: Tender Skin: Positive: Clear Extremities: Absent: edema - Labs and Meds Coagulation 05/21/16 Range/Units 06:55 PT 19.7 H (12.2-14.9) Sec. INR 1.67 H (0.87-1.13) CBC 05/21/16 Range/Units 06:55 WBC 14.6 H (4.5-11.0) K/mm3 RBC 5.05 H (3.65-5.03) M/mm3 Hgb 9.1 L (10.1-14.3) gm/dl Hct 30.5 (30.3-42.9) % Plt Count 450 H (140-440) K/mm3 - Imaging and Cardiology Echo: report reviewed (04/2016: mild LVH, EF 45-50%, impaired relaxation ) - Telemetry EKG Rhythm: Atrial Fibrillation
[2016-05-21] MEDS: XANAX PO PRN (15:55)
[2016-05-21] MEDS ORDERED: LANOXIN PO SCH (17:00)
[2016-05-22 06:20] LABS: Mean Corpuscular HGB Conc 29 % (30-34); Platelet Count 387 K/mm3 (140-440); Red Blood Count 5.09 M/mm3 (3.65-5.03); White Blood Count 13.3 K/mm3 (4.5-11.0)
[2016-05-22 06:21] LABS: Hematocrit 30.3 % (30.3-42.9); Hemoglobin 8.9 gm/dl (10.1-14.3); Mean Corpuscular Hemoglobin 18 pg (28-32); Mean Corpuscular Volume 60 fl (79-97); Red Cell Distribution Width 26.7 % (13.2-15.2)
[2016-05-22 06:32] LABS: INR 1.92 (0.87-1.13)
--- NOTE | 2016-05-22 08:48 | Progress Note ---
Assessment and Plan Atypical chest pain-->?costochondritis/?pericarditis troponin negative x 3 no acute EKG changes stress test negative for ischemia await limited echo findings continue colchicine Atrial fibrillation with RVR Echo 04/2016: mild LVH, EF 45-50%, impaired relaxation continue coumadin, okay per GI (goal INR 2-3) continue cardizem CD 300mg daily, metoprolol 50mg BID, digoxin 0.125mg daily Anemia hgb improved s/p PRBC transfusion 05/19 EGD/colonoscopy during last admission showed no active bleeding coumadin okay per GI monitor hemoglobin Hypertension BP stable Leukocytosis Continue current management. Await limited echo findings. Follow up lab appointment for INR on ., 05/27 at 10:30 am in our [place] office. Follow up appointment with Dr. Mckinnon in the [place] office on 06/04/16 at 10:00 am. The patient has been seen in conjunction with Dr. Stearns who agrees with the assessment and plan of care. Subjective Date of service: 05/22/16 Principal diagnosis: atrial fibrillation, atypical chest pain Interval history: The patient is resting comfortably in bed. Still c/o mild chest pain with coughing and deep inspiration but overall feels better. Atrial fibrillation with controlled ventricular rate on the monitor. Objective Last Vital Signs Temp 97.2 F L 05/22/16 08:00 Pulse 78 05/22/16 10:21 Resp 20 05/22/16 08:00 BP 121/78 05/22/16 10:21 Pulse Ox 98 05/22/16 08:00 - Physical Examination General: No Apparent Distress HEENT: Positive: PERRL, Normocephaly, Mucus Membranes Moist Neck: Positive: neck supple, trachea midline Cardiac: Positive: irregularly irregular, S1/S2 Lungs: Positive: clear to auscultation Neuro: Positive: Grossly Intact Abdomen: Positive: Soft, Active Bowel Sounds. Negative: Tender Skin: Positive: Clear Extremities: Absent: edema - Labs and Meds Coagulation 05/22/16 Range/Units 05:53 PT 22.0 H (12.2-14.9) Sec. INR 1.92 H (0.87-1.13) CBC 05/22/16 Range/Units 05:53 WBC 13.3 H (4.5-11.0) K/mm3 RBC 5.09 H (3.65-5.03) M/mm3 Hgb 8.9 L (10.1-14.3) gm/dl Hct 30.3 (30.3-42.9) % Plt Count 387 (140-440) K/mm3 - Imaging and Cardiology Echo: report reviewed (04/2016: mild LVH, EF 45-50%, impaired relaxation ) - Telemetry EKG Rhythm: Atrial Fibrillation
[2016-05-22] MEDS: COLCRYS PO SCH (10:21)
[2016-05-22] MEDS: LOPRESSOR PO SCH (10:21)
[2016-05-22] MEDS: FERGON PO SCH (10:21)
[2016-05-22 10:22] VITALS: BP 121/78
[2016-05-22] MEDS: PROTONIX PO SCH (10:22)
[2016-05-22] MEDS: CARDIZEM CD PO SCH (10:22)
[2016-05-22] MEDS: LASIX PO SCH (10:22)
[2016-05-22] MEDS: PERCOCET 5/325 PO PRN (10:25)
--- NOTE | 2016-05-22 10:30 | Discharge Summary ---
Providers - Providers Date of Admission: 05/17/16 18:11 Date of discharge: 05/22/16 Attending physician: MING PORRAS 05/17/16 18:42 Consult to Physician [CONS] Routine Consulting Provider: LOUIE VERMA Reason For Exam: atrial fibrillation Place consult to:: [facility] Notified:: Answering Service Phone number called:: [phone] Was contact made?: Yes If yes, spoke with:: ANGELA Time called:: 13:12 05/18/16 10:35 Consult to Physician [CONS] Routine Consulting Provider: RILEY JANE Reason For Exam: Anemia Place consult to:: [facility] Notified:: a service Phone number called:: [phone] Was contact made?: Yes If yes, spoke with:: ruchi Time called:: 11:39 Primary care physician: SENIOR PRODUCT MANAGER Hospitalization Condition: Fair Hospital course: 60F who self stopped coumadin because she had no place to follow up INR, who presented with c/o chest pain. She was worked up for chest pain, had a negative stress test. She had uncontrolled A. fib and RVR for which she was put on amiodarone and then transitioned to oral medications, oral medications then titrated up. She was restarted on Coumadin. Also notes she can continue Coumadin as an outpatient even if she doesn't have insurance as Coumadin is less than $4 a month, her main issue in the past was that she did not have a place to follow up INRs. She is being referred to [facility] for continuation of anticoagulation and to monitor INR. Discharge Diagnosis: 1. Chest pain serial troponins neg, cardiology input appreciated, Chest pain was most likely due to possible pericarditis, stress test was negative 2d echo showed preserved EF, discharged with 2 weeks of colchicine and out pt f/ u with [facility]. 2. Afib with RVR continue AVN blocking agents, continue warfarin, rate well controlled, continue current PO meds 3. Anemia, microcytic anemia has has recent negative EGD and Colonoscopy; anemia is most likely to due poor nutrition, started iron supplements Status post transfusion, with adequate rise in Hg 4. h/o Chronic systolic CHF- echo 05/21/16 showed preserved EF Currently euvolemic, meds optimized Disposition: DISCHARGED TO HOME OR SELFCARE Time spent for discharge: 34 minutes Core Measure Documentation - Palliative Care Palliative Care/ Comfort Measures: Not Applicable - Core Measures Any of the following diagnoses?: heart failure - Heart Failure Discharge Requirements CATARINO/ARB for LVSD if EF <40%: Not Applicable Beta best at discharge: Yes Exam - Physical Exam Narrative exam: GENERAL: well-developed and well-nourished elderly female lying on bed appeared to be in no discomfort. HEENT: Normocephalic. Atraumatic. No conjunctival congestion or icterus. Patient has moist mucous membranes. NECK: Supple. Trachea midline. CHEST/LUNGS: Clear to auscultated bilaterally, breathing nonlabored. No wheezes crackles or rhonchi. HEART/CARDIOVASCULAR: Regular in rate and rhythm. S1 and S2 positive. ABDOMEN: Abdomen is soft, nontender. Patient has normal bowel sounds. SKIN: There is no rash. Warm and dry. NEURO: No focal motor deficit. Follows command. MUSCULOSKELETAL: No joint effusion or tenderness. EXTRIMITY: No edema, no cyanosis or clubbing. PSYCH: Cooperative. - Constitutional Vitals: Temp Pulse Resp BP Pulse Ox 97.2 F L 78 20 121/78 98 05/22/16 08:00 05/22/16 10:21 05/22/16 08:00 05/22/16 10:21 05/22/16 08:00 Plan Activity: advance as tolerated Weight Bearing Status: Non-Weight Bearing Diet: low cholesterol, low salt Follow up with: [facility] [Provider Group] - 7 Days LOUIE VERMA MD [Staff Physician] - 06/04/16 10:00 am PRIMARY MD BRIELLE [Primary Care Provider] - 3-5 Days Forms: Warfarin Discharge Instruction Prescriptions: Colchicine [Colcrys] 0.6 mg PO BID #14 tablet Digoxin [Lanoxin] 0.125 mg PO DAILY@1700 #30 tablet Ferrous Gluconate [Fergon 325 MG tab] 324 mg PO QDAY #30 tablet Furosemide [Lasix TAB] 20 mg PO QDAY #30 tablet
[2016-05-22 10:50] LABS: Basophils % (Manual) 0 % (0.0-1.8); Blastocytes % (Manual) 0 %
[2016-05-22 10:51] LABS: Anisocytosis 2+; Diff Status Complete; Microcytosis 3+; Platelet Estimate Consistent w Auto
[2016-05-22] MEDS ORDERED: COUMADIN PO SCH (17:00)
== END 2016-05-22 13:46 | disposition home or self-care (01) | DRG 315 ==
LOC: ED 14:27 → 4A 18:11
PROVIDERS: ADMIT Internal Medicine; ATTEND Internal Medicine
PROC: 30233N1 Transfusion of Nonautologous Red Blood Cells into Peripheral Vein, Percutaneous Approach (ICD-10-PCS; principal; 2016-05-18)
PROC: 4A02XM4 Measurement of Cardiac Total Activity, External Approach (ICD-10-PCS; 2016-05-19)
DX: I31.9 Disease of pericardium, unspecified (principal); I50.22 Chronic systolic (congestive) heart failure; R07.89 Other chest pain; I48.91 Unspecified atrial fibrillation; D72.829 Elevated white blood cell count, unspecified; I11.0 Hypertensive heart disease with heart failure; R00.0 Tachycardia, unspecified; F41.9 Anxiety disorder, unspecified; D50.9 Iron deficiency anemia, unspecified; Z98.51 Tubal ligation status; Z87.891 Personal history of nicotine dependence; Z88.0 Allergy status to penicillin
CPT/HCPCS: 36415; 71010; 78452; 80048; 80053; 83880; 84484; 85007; 85014; 85018; 85025; 85027; 85610; 85730; 86850; 86900; 86901; 86920; 93005; 93010; 93017; 93306; 94760; 96365; 96367; 96375; A9502; J0282; J1160; J1940; J1956; J2270; J2405; J2785; J7030; J7040; J7060; P9016

== ENCOUNTER 2019-01-20 23:49 | Emergency (ER) | payer MEDICARE ==
[2019-01-21] MEDS ORDERED: FUROSEMIDE 40 MG/4 ML INJ IV ONE (00:11)
--- NOTE | 2019-01-21 00:14 | Emergency Department Report ---
ED Shortness of Breath HPI - General Chief Complaint: Extremity Injury, Lower Stated Complaint: BILATERAL LEG SWELLING W/PAIN Time Seen by Provider: 01/21/19 00:05 Source: EMS Mode of arrival: Stretcher Limitations: Physical Limitation - History of Present Illness Initial Comments: Patient is 63 years old female, morbidly obese, history of congestive heart failure, atrial fibrillation and hypertension. Patient presented to the ER complaining of shortness of breath and bilateral lower extremity swelling for the last week. Patient stated that she is not taking Lasix as supposed to. Patient currently denying any chest pain or cough. Patient does have orthopnea. Patient denied fever and chills. MD Complaint: shortness of breath - Related Data Previous Rx's Medication Instructions Recorded Last Taken Type ALPRAZolam [Xanax TAB] 0.25 mg PO Q8H PRN #30 tablet 05/10/16 Unknown Rx Metoprolol [Lopressor TAB] 50 mg PO BID #60 tablet 05/10/16 Unknown Rx Metoprolol [Lopressor TAB] 50 mg PO BID #60 tablet 05/10/16 Unknown Rx dilTIAZem CD [Cardizem CD] 300 mg PO QDAY #30 capsule 05/10/16 Unknown Rx Warfarin [Coumadin] 5 mg PO QDAY #30 tablet 05/11/16 Unknown Rx Colchicine [Colcrys] 0.6 mg PO BID #14 tablet 05/22/16 Unknown Rx Digoxin [Lanoxin] 0.125 mg PO DAILY@1700 #30 tablet 05/22/16 Unknown Rx Ferrous Gluconate [Fergon 325 MG 324 mg PO QDAY #30 tablet 05/22/16 Unknown Rx tab] Furosemide [Lasix TAB] 20 mg PO QDAY #30 tablet 05/22/16 Unknown Rx Allergies Allergy/AdvReac Type Severity Reaction Status Date / Time Penicillins Allergy Severe Anaphylaxis Verified 05/07/16 18:34 ED Review of Systems ROS: Stated complaint: BILATERAL LEG SWELLING W/PAIN Other details as noted in HPI Comment: All other systems reviewed and negative Constitutional: denies: chills, fever Respiratory: orthopnea, shortness of breath, SOB with exertion, SOB at rest. denies: cough, stridor, wheezing Cardiovascular: denies: chest pain, palpitations Gastrointestinal: denies: abdominal pain, nausea, vomiting, diarrhea, constipation, hematemesis, melena, hematochezia Genitourinary: denies: urgency Musculoskeletal: denies: back pain Neurological: denies: headache, weakness, numbness, paresthesias, confusion ED Past Medical Hx - Past Medical History Previous Medical History?: Yes Hx Hypertension: Yes Hx Liver Disease: No Hx Renal Disease: No Hx Asthma: No Additional medical history: ATRIAL FIB. PNEUMONIA. ANEMIA - Surgical History Past Surgical History?: Yes Additional Surgical History: TUBAL LIGATION - Social History Smoking Status: Never Smoker - Medications Home Medications: Home Medications Medication Instructions Recorded Confirmed Last Taken Type ALPRAZolam [Xanax TAB] 0.25 mg PO Q8H PRN #30 tablet 05/10/16 05/18/16 Unknown Rx Metoprolol [Lopressor TAB] 50 mg PO BID #60 tablet 05/10/16 05/18/16 Unknown Rx Metoprolol [Lopressor TAB] 50 mg PO BID #60 tablet 05/10/16 05/18/16 Unknown Rx dilTIAZem CD [Cardizem CD] 300 mg PO QDAY #30 capsule 05/10/16 05/18/16 Unknown Rx Warfarin [Coumadin] 5 mg PO QDAY #30 tablet 05/11/16 05/18/16 Unknown Rx Colchicine [Colcrys] 0.6 mg PO BID #14 tablet 05/22/16 Unknown Rx Digoxin [Lanoxin] 0.125 mg PO DAILY@1700 #30 tablet 05/22/16 Unknown Rx Ferrous Gluconate [Fergon 325 MG 324 mg PO QDAY #30 tablet 05/22/16 Unknown Rx tab] Furosemide [Lasix TAB] 20 mg PO QDAY #30 tablet 05/22/16 Unknown Rx ED Physical Exam - General Limitations: Physical Limitation General appearance: alert, in no apparent distress - Head Head exam: Present: atraumatic, normocephalic, normal inspection - Eye Eye exam: Present: normal appearance - ENT ENT exam: Present: normal exam, normal orophraynx, mucous membranes moist - Neck Neck exam: Present: normal inspection, full ROM. Absent: tenderness, meningismus, lymphadenopathy, thyromegaly - Respiratory Respiratory exam: Present: rales. Absent: respiratory distress, wheezes, rhonchi, accessory muscle use, decreased breath sounds, prolonged expiratory - GI/Abdominal GI/Abdominal exam: Present: soft. Absent: distended, tenderness, guarding - Extremities Exam Extremities exam: Present: pedal edema. Absent: calf tenderness - Back Exam Back exam: Present: normal inspection, full ROM. Absent: CVA tenderness (R), CVA tenderness (L) - Neurological Exam Neurological exam: Present: alert, oriented X3, CN II-XII intact - Psychiatric Psychiatric exam: Present: normal mood - Skin Skin exam: Present: warm, intact ED Course Vital Signs 01/21/19 01/21/19 02:05 02:06 Temperature 97.5 F L Pulse Rate 68 Respiratory 18 Rate Blood Pressure 127/64 [Left] O2 Sat by Pulse 100 Oximetry ED Medical Decision Making - Lab Data Result diagrams: 01/21/19 00:26 01/21/19 00:26 - EKG Data -: EKG Interpreted by Me - Radiology Data Radiology results: report reviewed - Medical Decision Making Patient is 63 years old female, morbidly obese, history of congestive heart failure, atrial fibrillation and hypertension. Patient presented to the ER complaining of shortness of breath and bilateral lower extremity swelling for the last week. Patient stated that she is not taking Lasix as supposed to. Patient currently denying any chest pain or cough. Patient does have orthopnea. Patient denied fever and chills. Patient labs reviewed , no porsche pulmonary edema. patient received lasix 60 mg. Patient asking for social media executive consultation for placement. Patient given prescription for lasix. Critical care attestation.: If time is entered above; I have spent that time in minutes in the direct care of this critically ill patient, excluding procedure time. ED Disposition Clinical Impression: CHF exacerbation Disposition: - TO HOME OR SELFCARE Is pt being admited?: No Condition: Stable Instructions: Heart Failure (ED) Referrals: [facility] [Provider Group] - 3-5 Days
--- NOTE | 2019-01-21 00:39 | XRay Report ---
CHEST 1 VIEW INDICATION: Dyspnea. COMPARISON: 05/17/2016. FINDINGS: Support devices: None. Heart: Mildly enlarged. Lungs/Pleura: Lung volumes are significantly diminished. No significant infiltrate. Additional findings: None. IMPRESSION: 1. Mild cardiomegaly. 2. Diminished lung volumes. Signer Name: Varun Calvo MD Signed: 01/21/2019 12:34 AM Workstation Name: [id number]
[2019-01-21 01:03] LABS: INR 1.51 (0.87-1.13)
[2019-01-21 01:04] LABS: Partial Thromboplastin Time 38.4 Sec. (24.2-36.6)
[2019-01-21 01:21] LABS: Albumin 3.6 g/dL (3.9-5); Bilirubin,Direct 0.7 mg/dL (0-0.2)
[2019-01-21 01:22] LABS: Basophils # (Auto) 0.1 K/mm3 (0.0-0.1); Basophils % (Auto) 1.4 % (0.0-1.8); Eosinophils # (Auto) 0.3 K/mm3 (0.0-0.4); Eosinophils % (Auto) 5.5 % (0.0-4.3); Hematocrit 29.6 % (30.3-42.9); Hemoglobin 9.3 gm/dl (10.1-14.3); Lymphocytes # (Auto) 0.5 K/mm3 (1.2-5.4); Lymphocytes % (Auto) 10.3 % (13.4-35.0); Mean Corpuscular HGB Conc 32 % (30-34); Mean Corpuscular Volume 76 fl (79-97); Monocytes # (Auto) 0.6 K/mm3 (0.0-0.8); Monocytes % (Auto) 12.5 % (0.0-7.3); Platelet Count 154 K/mm3 (140-440); Red Blood Count 3.87 M/mm3 (3.65-5.03)
[2019-01-21 01:23] LABS: Red Cell Distribution Width 20.7 % (13.2-15.2)
[2019-01-21] MEDS ORDERED: MORPHINE 2 MG/1 ML INJ ONE (01:41)
[2019-01-21] MEDS ORDERED: MORPHINE 4 MG/1 ML INJ IV ONE (01:45)
[2019-01-21] MEDS ORDERED: ACETAMINOPHEN 500 MG TAB ONE (06:35)
[2019-01-21] MEDS ORDERED: ACETAMINOPHEN 500 MG TAB PO ONE (06:38)
[2019-01-21 09:39] VITALS: BP 128/72
== END 2019-01-21 12:59 | disposition home or self-care (01) ==
LOC: ED 23:49
DX: I11.0 Hypertensive heart disease with heart failure (principal); I50.9 Heart failure, unspecified; Z86.2 Personal history of diseases of the blood and blood-forming organs and certain disorders involving the immune mechanism; Z98.51 Tubal ligation status; Z79.899 Other long term (current) drug therapy; Z88.0 Allergy status to penicillin
CPT/HCPCS: 36415; 71045; 80048; 80076; 83880; 84484; 85025; 85610; 85730; 93005; 93010; 96374; 96375; 99284; J1940; J2270